=== PATIENT | male | born 1965 | race Caucasian/White ===

== ENCOUNTER 2018-06-10 18:12 | Inpatient (IN) | payer MEDICAID ==
[~2018-06-10] VITALS: Ht 157.5 cm; Wt 59.9 kg
[2018-06-10] MEDS ORDERED: GLUCAGON,HUMAN RECOMBINANT 1MG/VIAL IV ONE (20:00)
[2018-06-10] MEDS ORDERED: SODIUM CHLORIDE 0.9% 1000ML BAG (SEPSIS BOLUS) IV ONE (20:00)
[2018-06-10] MEDS ORDERED: DEXT 5%/0.9% NACL 1,000 ML IV ONE (20:30)
[2018-06-10 20:40] LABS: BASOPHILS % 0.5 % (0.0-2.0); EOSINOPHILS % 1.1 % (0.0-5.0); HEMATOCRIT. 26.1 % (42.0-52.0); HEMOGLOBIN. 8.8 g/dL (14.0-18.0); LYMPHOCYTES % 19.8 % (20.0-50.0); MEAN CORPUSCULAR HEMOGLOBIN 30.1 pg (28.0-32.0); MEAN CORPUSCULAR VOLUME 89.7 fL (80.0-94.0); MEAN PLATELET VOLUME 9.5 fl (7.4-10.4); MONOCYTES % 12.7 % (2.0-8.0); NEUTROPHILS % 65.9 % (40.0-76.0); PLATELET 115 x1000/uL (130-400); RED BLOOD CELL COUNT 2.91 mill/uL (4.7-6.1); RED CELL DISTRIBUTION WIDTH 12.8 % (11.6-14.6)
[2018-06-10 20:43] LABS: CHLORIDE 108 mEq/L (98-107)
[2018-06-10 20:47] LABS: ETHANOL BLOOD < 10 mg/dL
[2018-06-10 20:52] LABS: CREATINE KINASE 55 IU/L (39-308)
[2018-06-10 21:19] LABS: PHOSPHORUS 3.9 mg/dL (2.5-4.9)
[2018-06-10] MEDS ORDERED: HYDROCODONE/ACETAMINOPHEN 5/325MG TABLET PO PRN (22:30)
[2018-06-10] MEDS ORDERED: DOCUSATE SODIUM 100MG CAPSULE PO PRN (22:30)
[2018-06-10] MEDS ORDERED: MAGNESIUM/ALUMINUM HYDROXIDE/SIMETHICONE 30ML UDC PO PRN (22:30)
[2018-06-10] MEDS ORDERED: ONDANSETRON HCL 4MG/2ML INJ IV PRN (22:30)
[2018-06-10] MEDS ORDERED: IPRATROPIUM/ALBUTEROL 0.5-3(2.5)MG/3ML NEB INH PRN (22:30)
[2018-06-10] MEDS ORDERED: ACETAMINOPHEN 325MG TABLET PO PRN (22:30)
[2018-06-10] MEDS ORDERED: DEXTROSE 50% WATER 50ML SYRINGE IV PRN (22:30)
[2018-06-11 00:44] LABS: HEPATITIS B SURFACE ANTIGEN NEGATIVE
[2018-06-11 01:14] LABS: HEPATITIS A AB IGM NEGATIVE (NEGATIVE)
[2018-06-11 04:15] VITALS: BP 159/84
[2018-06-11] MEDS ORDERED: DEXTROSE 50% WATER 50ML SYRINGE IV PRN (04:45)
[2018-06-11] MEDS ORDERED: GLIP5TAB12 PO (05:06)
[2018-06-11] MEDS ORDERED: AMLO-79 PO (05:06)
[2018-06-11 06:00] VITALS: BP 159/85
[2018-06-11] MEDS: INSULIN LISPRO 100 UNITS/ML SUBCUT SCH ×4 (06:32→20:32)
[2018-06-11] MEDS: BLOOD SUGAR DIAGNOSTIC STRIP TEST SCH ×4 (06:32→20:32)
[2018-06-11 07:00] LABS: BASOPHILS % 0.6 % (0.0-2.0); HEMATOCRIT. 22.2 % (42.0-52.0); HEMOGLOBIN. 7.5 g/dL (14.0-18.0); LYMPHOCYTES % 18.9 % (20.0-50.0); MEAN CORPUSCULAR HEMOGLOBIN 30.3 pg (28.0-32.0); MEAN CORPUSCULAR VOLUME 89.3 fL (80.0-94.0); MEAN PLATELET VOLUME 9.2 fl (7.4-10.4); MONOCYTES % 12.6 % (2.0-8.0); NEUTROPHILS % 65.9 % (40.0-76.0); PLATELET 119 x1000/uL (130-400); RED BLOOD CELL COUNT 2.48 mill/uL (4.7-6.1); RED CELL DISTRIBUTION WIDTH 12.6 % (11.6-14.6)
[2018-06-11 07:06] LABS: CREATINE KINASE MB FRACTION 1.9 ng/mL (0.5-3.6)
[2018-06-11] MEDS: SODIUM CHLORIDE 0.9% 1,000 ML IV SCH ×2 (07:48→19:08)
[2018-06-11 08:00] VITALS: BP 156/74
[2018-06-11] MEDS ORDERED: PNEUMOCOCCAL 23-VAL P-SAC VAC 0.5 ML IM ONE (08:00)
[2018-06-11 12:00] VITALS: BP 155/83
[2018-06-11] MEDS: AMLODIPINE 2.5MG TABLET PO SCH (13:15)
[2018-06-11] MEDS: PANTOPRAZOLE SODIUM 40 MG/VIAL IV SCH (13:15)
[2018-06-11] MEDS: THIAMINE HCL 100MG TABLET PO SCH (13:45)
[2018-06-11 16:33] LABS: INR 1.1; PROTHROMBIN TIME 11.3 sec (9.1-11.1)
[2018-06-11 16:42] LABS: TOTAL IRON BINDING CAPACITY 163 ug/dL (250-450)
[2018-06-11 16:44] LABS: CREATINE KINASE 49 IU/L (39-308)
[2018-06-11 16:45] LABS: CREATINE KINASE MB FRACTION 1.8 ng/mL (0.5-3.6)
[2018-06-11 16:59] LABS: FOLIC ACID (FOLATE) SERUM 9.9 ng/mL (>5.38)
[2018-06-11 17:08] VITALS: BP_SYST 132; BP_SYST 140; BP_SYST 179; BP_DIAS 85; BP_DIAS 88; BP_DIAS 97
[2018-06-11 20:00] VITALS: BP 177/96
[2018-06-11] MEDS: CLONIDINE 0.1MG TABLET PO PRN (21:22)
[2018-06-12] VITALS (7 sets, daily range): BP systolic 139–170; BP diastolic 74–86
[2018-06-12] MEDS: BLOOD SUGAR DIAGNOSTIC STRIP TEST SCH ×4 (07:10→21:26)
[2018-06-12] MEDS: SODIUM CHLORIDE 0.9% 1,000 ML IV SCH (07:40)
[2018-06-12] MEDS: INSULIN LISPRO 100 UNITS/ML SUBCUT SCH ×4 (07:40→21:50)
[2018-06-12 08:18] LABS: BASOPHILS % 0.7 % (0.0-2.0); EOSINOPHILS % 2.4 % (0.0-5.0); LYMPHOCYTES % 22.3 % (20.0-50.0); MEAN CORPUSCULAR VOLUME 90.4 fL (80.0-94.0); MEAN PLATELET VOLUME 8.9 fl (7.4-10.4); MONOCYTES % 10.1 % (2.0-8.0); NEUTROPHILS % 64.5 % (40.0-76.0); PLATELET 161 x1000/uL (130-400); RED CELL DISTRIBUTION WIDTH 12.9 % (11.6-14.6)
[2018-06-12 08:27] LABS: HIV SCREEN 4G Non Reactive (Non Reactive)
[2018-06-12 08:41] LABS: HEMOGLOBIN. 6.6 g/dL (14.0-18.0)
[2018-06-12 08:42] LABS: HEMATOCRIT. 19.9 % (42.0-52.0)
[2018-06-12] MEDS: AMLODIPINE 2.5MG TABLET PO SCH (09:05)
[2018-06-12] MEDS: PANTOPRAZOLE SODIUM 40 MG/VIAL IV SCH (09:05)
[2018-06-12] MEDS: THIAMINE HCL 100MG TABLET PO SCH (09:05)
[2018-06-12] MEDS: CLONIDINE 0.1MG TABLET PO PRN (13:09)
[2018-06-12] MEDS ORDERED: SORBITOL 70% SOLN 30ML PO SCH ×2 (18:00→22:00)
[2018-06-12 18:17] LABS: HEMATOCRIT 25.2 % (42.0-52.0); HEMOGLOBIN 8.4 g/dL (14.0-18.0)
[2018-06-13] VITALS (8 sets, daily range): BP systolic 155–190; BP diastolic 77–95
[2018-06-13] MEDS ORDERED: SORBITOL 70% SOLN 30ML PO SCH (01:30)
[2018-06-13] MEDS: INSULIN LISPRO 100 UNITS/ML SUBCUT SCH ×4 (06:23→21:15)
[2018-06-13] MEDS: BLOOD SUGAR DIAGNOSTIC STRIP TEST SCH ×4 (06:23→20:51)
[2018-06-13 07:05] LABS: BASOPHILS % 0.5 % (0.0-2.0); EOSINOPHILS % 2.6 % (0.0-5.0); HEMATOCRIT. 28.7 % (42.0-52.0); HEMOGLOBIN. 9.7 g/dL (14.0-18.0); LYMPHOCYTES % 14.9 % (20.0-50.0); MEAN CORPUSCULAR HEMOGLOBIN 30.2 pg (28.0-32.0); MEAN CORPUSCULAR VOLUME 89.1 fL (80.0-94.0); MEAN PLATELET VOLUME 8.3 fl (7.4-10.4); MONOCYTES % 8.6 % (2.0-8.0); NEUTROPHILS % 73.4 % (40.0-76.0); PLATELET 264 x1000/uL (130-400); RED BLOOD CELL COUNT 3.23 mill/uL (4.7-6.1); RED CELL DISTRIBUTION WIDTH 13.2 % (11.6-14.6)
[2018-06-13 07:07] LABS: INR 1.1; PARTIAL THROMBOPLASTIN TIME 27.1 sec (23.4-31.0); PROTHROMBIN TIME 10.7 sec (9.1-11.1)
[2018-06-13] MEDS: CLONIDINE 0.1MG TABLET PO PRN ×2 (08:28→15:42)
[2018-06-13] MEDS: AMLODIPINE 2.5MG TABLET PO SCH (08:28)
[2018-06-13] MEDS: PANTOPRAZOLE SODIUM 40 MG/VIAL IV SCH (08:28)
[2018-06-13] MEDS: THIAMINE HCL 100MG TABLET PO SCH (09:00)
[2018-06-13] MEDS ORDERED: PROPOFOL 200MG/20ML VIAL IV ONE (13:39)
[2018-06-13] MEDS ORDERED: LIDOCAINE HCL/PF 1% 10 MG/ML 5ML VIAL ONE (13:39)
[2018-06-13] MEDS ORDERED: MIDAZOLAM HCL 2 MG/2 ML VIAL ONE (13:48)
[2018-06-13] MEDS ORDERED: SIMETHICONE 40 MG/0.6 ML 30ML ONE (13:53)
[2018-06-13] MEDS: SODIUM CHLORIDE 0.9% 1,000 ML IV SCH (21:30)
[2018-06-13] MEDS: HYDRALAZINE 20MG/ML VIAL IV PRN (21:50)
[2018-06-14 00:10] VITALS: BP 160/87
[2018-06-14 04:00] VITALS: BP 165/74
[2018-06-14 04:12] LABS: OVA & PARASITE EXAM Final report (.)
[2018-06-14 06:18] VITALS: BP 145/94
[2018-06-14] MEDS: BLOOD SUGAR DIAGNOSTIC STRIP TEST SCH ×4 (06:19→21:04)
[2018-06-14] MEDS: INSULIN LISPRO 100 UNITS/ML SUBCUT SCH ×4 (06:19→21:00)
[2018-06-14] MEDS: OMEPRAZOLE 20MG CAPSULE EXTENDED RELEASE PO SCH (06:20)
[2018-06-14 06:54] LABS: BASOPHILS % 0.7 % (0.0-2.0); EOSINOPHILS % 3.4 % (0.0-5.0); HEMATOCRIT. 25.9 % (42.0-52.0); HEMOGLOBIN. 8.6 g/dL (14.0-18.0); LYMPHOCYTES % 15.2 % (20.0-50.0); MEAN CORPUSCULAR HEMOGLOBIN 29.5 pg (28.0-32.0); MEAN CORPUSCULAR VOLUME 89.1 fL (80.0-94.0); MEAN PLATELET VOLUME 8.4 fl (7.4-10.4); MONOCYTES % 8.2 % (2.0-8.0); NEUTROPHILS % 72.5 % (40.0-76.0); PLATELET 267 x1000/uL (130-400); RED BLOOD CELL COUNT 2.91 mill/uL (4.7-6.1); RED CELL DISTRIBUTION WIDTH 13.2 % (11.6-14.6)
[2018-06-14 07:59] VITALS: BP 169/75
[2018-06-14] MEDS ORDERED: MAGNESIUM 1 G PREMIX 100 ML IV NR (10:00)
[2018-06-14 10:20] LABS: BG BASE EXCESS -7.2 mmol/L (-2.0-2.0); BG CARBOXYHEMOGLOBIN 0.3 % (0.5-1.5); BG DEOXYHEMOGLOBIN 4.7 % (0.0-5.0); BG FRACTION INSPIRED OXYGEN 21; BG HCO3 ACT 16.4 mmol/L (22.0-26.0); BG METHEMOGLOBIN 0.4 % (0.0-1.5); BG OXYGEN SATURATION 95.3 % (92.0-98.5); BG OXYHEMOGLOBIN 94.6 % (94.0-97.0); BG PCO2 26.8 mmHg (35.0-45.0); BG PH 7.405 (7.350-7.450); BG SAMPLE SITE LEFT BRACHIAL; BG TOTAL HEMOGLOBIN 9.1 g/dL (12.0-18.0); BG VENT MODE ROOM AIR
[2018-06-14] MEDS: THIAMINE HCL 100MG TABLET PO SCH (10:51)
[2018-06-14] MEDS: HYDRALAZINE 20MG/ML VIAL IV PRN (10:52)
[2018-06-14] MEDS: CLONIDINE 0.1MG TABLET PO PRN (10:53)
[2018-06-14 12:00] VITALS: BP 145/79
[2018-06-14] MEDS ORDERED: MAGNESIUM 2 G PREMIX 50 ML IV NR (12:00)
[2018-06-14] MEDS: FERROUS SULFATE 325MG TABLET PO SCH ×2 (12:24→17:11)
[2018-06-14 16:00] VITALS: BP 139/81
[2018-06-14 18:52] LABS: CLARITY URINE CLEAR (CLEAR); COLOR URINE YELLOW (YELLOW); KETONES URINE NEGATIVE (NEGATIVE); LEUKOCYTE ESTERASE URINE NEGATIVE (NEGATIVE); NITRITE URINE NEGATIVE (NEGATIVE); OCCULT BLOOD URINE NEGATIVE (NEGATIVE); PROTEIN URINE 3+ (NEGATIVE); UROBILINOGEN URINE 0.2 E.U./dL (0.2-1.0)
[2018-06-14] MEDS ORDERED: EPOETIN ALFA 10000UNITS/ML VIAL SUBCUT NR (21:00)
[2018-06-14] MEDS: SODIUM CHLORIDE 0.9% 1,000 ML IV SCH ×2 (21:00→21:02)
[2018-06-14] MEDS: HYDRALAZINE HCL 25MG TABLET PO SCH (21:43)
[2018-06-14] MEDS: NIFEDIPINE XL 30MG TAB PO SCH (21:44)
[2018-06-15] MEDS: BLOOD SUGAR DIAGNOSTIC STRIP TEST SCH ×4 (07:10→20:18)
[2018-06-15] MEDS: INSULIN LISPRO 100 UNITS/ML SUBCUT SCH ×4 (07:40→20:18)
[2018-06-15 07:48] LABS: BASOPHILS % 0.5 % (0.0-2.0); HEMATOCRIT. 24.5 % (42.0-52.0); HEMOGLOBIN. 8.1 g/dL (14.0-18.0); LYMPHOCYTES % 16.5 % (20.0-50.0); MEAN CORPUSCULAR HEMOGLOBIN 29.4 pg (28.0-32.0); MEAN CORPUSCULAR VOLUME 89.4 fL (80.0-94.0); MONOCYTES % 8.5 % (2.0-8.0); NEUTROPHILS % 71.5 % (40.0-76.0); PLATELET 309 x1000/uL (130-400); RED BLOOD CELL COUNT 2.74 mill/uL (4.7-6.1); RED CELL DISTRIBUTION WIDTH 13.4 % (11.6-14.6)
[2018-06-15 07:54] LABS: PHOSPHORUS 4.3 mg/dL (2.5-4.9)
[2018-06-15 08:00] VITALS: BP 174/86
[2018-06-15] MEDS: OMEPRAZOLE 20MG CAPSULE EXTENDED RELEASE PO SCH (09:49)
[2018-06-15] MEDS: HYDRALAZINE HCL 25MG TABLET PO SCH (09:49)
[2018-06-15] MEDS: THIAMINE HCL 100MG TABLET PO SCH (09:50)
[2018-06-15] MEDS: NIFEDIPINE XL 30MG TAB PO SCH ×2 (09:50→20:19)
[2018-06-15] MEDS: FERROUS SULFATE 325MG TABLET PO SCH ×3 (09:50→18:19)
[2018-06-15] MEDS: SODIUM CHLORIDE 0.9% 1,000 ML IV SCH (09:51)
[2018-06-15 12:00] VITALS: BP 131/71
[2018-06-15] MEDS: AZITHROMYCIN 500 MG in DEXT 5% WATER 250 ML IV SCH (13:59)
[2018-06-15] MEDS: LACTULOSE 20G/30ML UDC PO SCH ×2 (14:01→21:12)
[2018-06-15 16:00] VITALS: BP 114/62
[2018-06-15] MEDS: CEFTRIAXONE 1,000 MG in DEXTROSE 5% WATER 50 ML IV SCH (18:20)
[2018-06-15 20:00] VITALS: BP 141/82
[2018-06-15] MEDS: CARVEDILOL 6.25 MG TABLET PO SCH (20:19)
[2018-06-16] VITALS: BP 120/80
[2018-06-16 04:00] VITALS: BP 140/91
[2018-06-16] MEDS: BLOOD SUGAR DIAGNOSTIC STRIP TEST SCH ×4 (06:14→21:16)
[2018-06-16] MEDS: LACTULOSE 20G/30ML UDC PO SCH ×2 (06:17→13:01)
[2018-06-16] MEDS: INSULIN LISPRO 100 UNITS/ML SUBCUT SCH ×4 (06:17→21:00)
[2018-06-16] MEDS: OMEPRAZOLE 20MG CAPSULE EXTENDED RELEASE PO SCH (06:17)
[2018-06-16 07:16] LABS: BASOPHILS % 0.6 % (0.0-2.0); EOSINOPHILS % 2.8 % (0.0-5.0); HEMATOCRIT. 26.1 % (42.0-52.0); HEMOGLOBIN. 8.7 g/dL (14.0-18.0); LYMPHOCYTES % 16.7 % (20.0-50.0); MEAN CORPUSCULAR HEMOGLOBIN 29.8 pg (28.0-32.0); MEAN CORPUSCULAR VOLUME 89.5 fL (80.0-94.0); MEAN PLATELET VOLUME 7.4 fl (7.4-10.4); MONOCYTES % 7.7 % (2.0-8.0); NEUTROPHILS % 72.2 % (40.0-76.0); PLATELET 379 x1000/uL (130-400); RED BLOOD CELL COUNT 2.91 mill/uL (4.7-6.1); RED CELL DISTRIBUTION WIDTH 13.7 % (11.6-14.6)
[2018-06-16 07:52] LABS: PHOSPHORUS 4.4 mg/dL (2.5-4.9)
[2018-06-16 08:10] VITALS: BP 175/91
[2018-06-16] MEDS: THIAMINE HCL 100MG TABLET PO SCH (08:11)
[2018-06-16] MEDS: FERROUS SULFATE 325MG TABLET PO SCH ×3 (08:11→17:37)
[2018-06-16] MEDS: NIFEDIPINE XL 30MG TAB PO SCH ×2 (08:11→21:21)
[2018-06-16] MEDS: CARVEDILOL 6.25 MG TABLET PO SCH ×2 (08:12→21:37)
[2018-06-16 12:00] VITALS: BP 107/54
[2018-06-16] MEDS: AZITHROMYCIN 500 MG in DEXT 5% WATER 250 ML IV SCH (12:01)
[2018-06-16] MEDS: CEFTRIAXONE 1,000 MG in DEXTROSE 5% WATER 50 ML IV SCH (13:01)
[2018-06-16 16:00] VITALS: BP 127/57
[2018-06-16] MEDS ORDERED: MAGNESIUM 2 G PREMIX 50 ML IV NR (16:00)
[2018-06-16 20:00] VITALS: BP 144/68
[2018-06-17] VITALS: BP 140/60
[2018-06-17 04:00] VITALS: BP 130/70
[2018-06-17] MEDS: INSULIN LISPRO 100 UNITS/ML SUBCUT SCH ×2 (06:19→14:35)
[2018-06-17] MEDS: BLOOD SUGAR DIAGNOSTIC STRIP TEST SCH ×2 (06:19→12:10)
[2018-06-17] MEDS: OMEPRAZOLE 20MG CAPSULE EXTENDED RELEASE PO SCH (06:19)
[2018-06-17 06:48] LABS: BASOPHILS % 0.6 % (0.0-2.0); EOSINOPHILS % 4.3 % (0.0-5.0); HEMATOCRIT. 25.2 % (42.0-52.0); HEMOGLOBIN. 8.6 g/dL (14.0-18.0); LYMPHOCYTES % 17.6 % (20.0-50.0); MEAN CORPUSCULAR HEMOGLOBIN 30.6 pg (28.0-32.0); MEAN CORPUSCULAR VOLUME 90.1 fL (80.0-94.0); MEAN PLATELET VOLUME 7.6 fl (7.4-10.4); MONOCYTES % 6.4 % (2.0-8.0); NEUTROPHILS % 71.1 % (40.0-76.0); PLATELET 351 x1000/uL (130-400); RED CELL DISTRIBUTION WIDTH 13.5 % (11.6-14.6)
[2018-06-17 07:39] LABS: PHOSPHORUS 4.7 mg/dL (2.5-4.9)
[2018-06-17 08:00] VITALS: BP 140/73
[2018-06-17] MEDS ORDERED: LACTULOSE 20G/30ML UDC PO SCH (09:00)
[2018-06-17] MEDS: NIFEDIPINE XL 30MG TAB PO SCH (09:34)
[2018-06-17] MEDS: CARVEDILOL 6.25 MG TABLET PO SCH (09:34)
[2018-06-17] MEDS: THIAMINE HCL 100MG TABLET PO SCH (09:34)
[2018-06-17] MEDS: FERROUS SULFATE 325MG TABLET PO SCH ×2 (09:34→14:34)
[2018-06-17] MEDS ORDERED: THIA100T72 PO (10:59)
[2018-06-17] MEDS ORDERED: NIFE30TA83 PO (10:59)
[2018-06-17] MEDS ORDERED: FERR325T23 PO (10:59)
[2018-06-17] MEDS ORDERED: COR6 PO (10:59)
[2018-06-17] MEDS ORDERED: LACT10SO7 PO (10:59)
[2018-06-17] MEDS ORDERED: OMEP20CA10 PO (10:59)
[2018-06-17 12:00] VITALS: BP 136/70
[2018-06-17 13:06] LABS: SACCHAROMYCES CEREVISIAE IGG 39.7 Units (0.0-24.9)
[2018-06-17] MEDS: CEFTRIAXONE 1,000 MG in DEXTROSE 5% WATER 50 ML IV SCH (14:34)
[2018-06-17 15:08] LABS: ATYPICAL pANCA <1:20 titer (Neg:<1:20)
[2018-06-17 15:25] VITALS: BP 136/70
[2018-06-18 10:08] LABS: SACCHAROMYCES CEREVISIAE IGM 21.4 Units (0.0-24.9)
== END 2018-06-17 16:50 | disposition home or self-care (01) | DRG 52 ==
LOC: ER 18:31 → 8WST 21:53 → EDBEDREQ 21:56 → EDBEDREQTM 21:56 → ENRESERV 06-11 02:28
PROVIDERS: ADMIT Internal Medicine; ATTEND Internal Medicine
PROC: 30233N1 Transfusion of Nonautologous Red Blood Cells into Peripheral Vein, Percutaneous Approach (ICD-10-PCS; 2018-06-12)
PROC: 0DB68ZX Excision of Stomach, Via Natural or Artificial Opening Endoscopic, Diagnostic (ICD-10-PCS; principal; 2018-06-13)
PROC: 0DB88ZX Excision of Small Intestine, Via Natural or Artificial Opening Endoscopic, Diagnostic (ICD-10-PCS; 2018-06-13)
PROC: 0DBK8ZX Excision of Ascending Colon, Via Natural or Artificial Opening Endoscopic, Diagnostic (ICD-10-PCS; 2018-06-13)
PROC: 0DBN8ZX Excision of Sigmoid Colon, Via Natural or Artificial Opening Endoscopic, Diagnostic (ICD-10-PCS; 2018-06-13)
PROC: 0JBR0ZZ Excision of Left Foot Subcutaneous Tissue and Fascia, Open Approach (ICD-10-PCS; 2018-06-13)
DX: G93.41 Metabolic encephalopathy (principal); E43 Unspecified severe protein-calorie malnutrition; J18.9 Pneumonia, unspecified organism; D69.6 Thrombocytopenia, unspecified; E11.22 Type 2 diabetes mellitus with diabetic chronic kidney disease; N17.9 Acute kidney failure, unspecified; E11.621 Type 2 diabetes mellitus with foot ulcer; I12.0 Hypertensive chronic kidney disease with stage 5 chronic kidney disease or end stage renal disease; N18.6 End stage renal disease; E11.51 Type 2 diabetes mellitus with diabetic peripheral angiopathy without gangrene; E11.649 Type 2 diabetes mellitus with hypoglycemia without coma; L97.528 Non-pressure chronic ulcer of other part of left foot with other specified severity; E87.2 Acidosis; E83.42 Hypomagnesemia; K29.70 Gastritis, unspecified, without bleeding; K92.1 Melena; K52.9 Noninfective gastroenteritis and colitis, unspecified; D50.9 Iron deficiency anemia, unspecified; S90.422A Blister (nonthermal), left great toe, initial encounter; X58.XXXA Exposure to other specified factors, initial encounter; I12.9 Hypertensive chronic kidney disease with stage 1 through stage 4 chronic kidney disease, or unspecified chronic kidney disease; F10.20 Alcohol dependence, uncomplicated; I31.3 Pericardial effusion (noninflammatory); K57.30 Diverticulosis of large intestine without perforation or abscess without bleeding; N28.1 Cyst of kidney, acquired; Z82.49 Family history of ischemic heart disease and other diseases of the circulatory system; Z86.73 Personal history of transient ischemic attack (TIA), and cerebral infarction without residual deficits; Y93.89 Activity, other specified; Y92.89 Other specified places as the place of occurrence of the external cause; Y99.8 Other external cause status; Z68.24 Body mass index [BMI] 24.0-24.9, adult; E83.51 Hypocalcemia
CPT/HCPCS: 36415; 36600; 70551; 71045; 76700; 76770; 80048; 80061; 80320; 82140; 82270; 82375; 82533; 82550; 82553; 82607; 82728; 82746; 82805; 82962; 83036; 83540; 83550; 83605; 83735; 84100; 84134; 84443; 84484; 85014; 85018; 86256; 86671; 86705; 86709; 86803; 86850; 86900; 86920; 87015; 87045; 87177; 87209; 87340; 87389; 87427; 87449; 88305; 88313; 89055; 90471; 90732; 93005; 93306; 93880; 93970; 96374; 99285; C9113; J0360; J0456; J0696; J0885; J1610; J1815; J2250; J2704; J3475; J3490; J7030; J7042; J7050; J7060; P9016; G0480

== ENCOUNTER 2019-04-08 21:13 | Inpatient (IN) | payer MEDICAID ==
[~2019-04-08] VITALS: Ht 157.5 cm; Wt 53.1 kg
[~2019-04-08 21:13] MED LIST: COR6 PO; FERR325T23 PO; GLIP5TAB12 PO; LACT10SO7 PO; NIFE-33 PO; OMEP20CA14 PO; THIA100T72 PO
[2019-04-08 23:53] LABS: BASOPHILS % 0.9 % (0.0-2.0); HEMATOCRIT. 21.5 % (42.0-52.0); HEMOGLOBIN. 7.3 g/dL (14.0-18.0); LYMPHOCYTES % 30.4 % (20.0-50.0); MEAN CORPUSCULAR HEMOGLOBIN 29.2 pg (28.0-32.0); MEAN CORPUSCULAR VOLUME 85.5 fL (80.0-94.0); MEAN PLATELET VOLUME 7.1 fl (7.4-10.4); MONOCYTES % 10.4 % (2.0-8.0); NEUTROPHILS % 56.3 % (40.0-76.0); PLATELET 301 x1000/uL (130-400); RED BLOOD CELL COUNT 2.52 mill/uL (4.7-6.1); RED CELL DISTRIBUTION WIDTH 17.3 % (11.6-14.6)
[2019-04-09] LABS: CHLORIDE 100 mEq/L (98-107)
[2019-04-09 00:02] LABS: PROTHROMBIN TIME 10.8 sec (9.6-11.0)
[2019-04-09] MEDS ORDERED: PANTOPRAZOLE SODIUM 40 MG/VIAL IV ONE (00:45)
[2019-04-09] MEDS ORDERED: ACETAMINOPHEN 325MG TABLET PO PRN (08:30)
[2019-04-09] MEDS ORDERED: ONDANSETRON HCL 4MG/2ML INJ IV PRN (08:30)
[2019-04-09] MEDS ORDERED: DEXTROSE 50% WATER 50ML SYRINGE IV PRN (08:30)
[2019-04-09] MEDS: CLONIDINE 0.1MG TABLET PO PRN (09:02)
[2019-04-09 09:30] VITALS: BP 240/86
[2019-04-09] MEDS: INSULIN LISPRO 100 UNITS/ML SUBCUT SCH ×4 (10:00→21:00)
[2019-04-09] MEDS: BLOOD SUGAR DIAGNOSTIC STRIP TEST SCH ×4 (10:54→21:07)
[2019-04-09] MEDS: PANTOPRAZOLE SODIUM 40 MG/VIAL IV SCH ×2 (10:54→18:15)
[2019-04-09] MEDS: NIFEDIPINE XL 60MG TAB PO SCH ×2 (10:57→21:43)
[2019-04-09 12:00] VITALS: BP 190/78
[2019-04-09 16:00] VITALS: BP 171/85
[2019-04-09 17:09] LABS: HEMATOCRIT 21.1 % (42.0-52.0); HEMOGLOBIN 7.1 g/dL (14.0-18.0)
[2019-04-09] MEDS: IRON SUCROSE COMPLEX 100 MG/5 ML ML IV SCH (18:21)
[2019-04-09 20:00] VITALS: BP 112/73
[2019-04-09] MEDS: HYDRALAZINE HCL 50MG TABLET PO SCH (21:43)
[2019-04-09] MEDS: FUROSEMIDE 20MG TABLET PO SCH (21:43)
[2019-04-09] MEDS: BENAZEPRIL 10MG TABLET PO SCH (21:44)
[2019-04-09] MEDS ORDERED: PNEUMOCOCCAL 23-VAL P-SAC VAC 0.5 ML IM ONE (22:15)
[2019-04-09] MEDS ORDERED: SORBITOL 70% SOLN 30ML PO NR (22:30)
[2019-04-10] VITALS: BP 113/68
[2019-04-10 04:00] VITALS: BP 122/70
[2019-04-10 07:04] LABS: BASOPHILS % 1.1 % (0.0-2.0); EOSINOPHILS % 1.4 % (0.0-5.0); HEMATOCRIT. 23.7 % (42.0-52.0); HEMOGLOBIN. 7.9 g/dL (14.0-18.0); LYMPHOCYTES % 20.8 % (20.0-50.0); MEAN CORPUSCULAR HEMOGLOBIN 28.6 pg (28.0-32.0); MEAN CORPUSCULAR VOLUME 85.6 fL (80.0-94.0); MEAN PLATELET VOLUME 7.3 fl (7.4-10.4); MONOCYTES % 8.3 % (2.0-8.0); NEUTROPHILS % 68.4 % (40.0-76.0); PLATELET 411 x1000/uL (130-400); RED BLOOD CELL COUNT 2.77 mill/uL (4.7-6.1); RED CELL DISTRIBUTION WIDTH 17.4 % (11.6-14.6)
[2019-04-10] MEDS: BLOOD SUGAR DIAGNOSTIC STRIP TEST SCH ×4 (07:16→21:00)
[2019-04-10] MEDS: INSULIN LISPRO 100 UNITS/ML SUBCUT SCH ×4 (07:17→21:00)
[2019-04-10] MEDS ORDERED: TUBERCULIN,PURIF.PROT.DERIV. 5 TU/0.1 ML SYR ID ONE ×2 (08:00→09:30)
[2019-04-10 08:10] VITALS: BP 128/76
[2019-04-10 08:34] LABS: HEPATITIS B SURFACE ANTIGEN NEGATIVE
[2019-04-10 09:04] LABS: HEPATITIS A AB IGM NEGATIVE (NEGATIVE)
[2019-04-10] MEDS: HYDRALAZINE HCL 50MG TABLET PO SCH ×2 (09:31→21:00)
[2019-04-10] MEDS: NIFEDIPINE XL 60MG TAB PO SCH ×2 (09:32→21:00)
[2019-04-10] MEDS: FOLIC ACID/VITAMIN B COMP W-C TABLET PO SCH (09:32)
[2019-04-10] MEDS: BENAZEPRIL 10MG TABLET PO SCH ×2 (09:32→21:00)
[2019-04-10] MEDS: PANTOPRAZOLE SODIUM 40 MG/VIAL IV SCH ×2 (09:33→18:18)
[2019-04-10] MEDS: FUROSEMIDE 20MG TABLET PO SCH ×2 (09:36→21:00)
[2019-04-10 11:40] VITALS: BP 134/77
[2019-04-10 15:33] VITALS: BP 110/68
[2019-04-10] MEDS: IRON SUCROSE COMPLEX 100 MG/5 ML ML IV SCH (18:18)
[2019-04-10 20:00] VITALS: BP 109/65
[2019-04-10] MEDS ORDERED: IRON SUCROSE COMPLEX 100 MG/5 ML ML IV NR (22:00)
[2019-04-10] MEDS ORDERED: EPOETIN ALFA 4000UNITS/ML VIAL SUBCUT NR ×2 (22:00)
[2019-04-11] VITALS: BP 106/64
[2019-04-11 04:00] VITALS: BP 109/82
[2019-04-11 07:37] LABS: BASOPHILS % 0.8 % (0.0-2.0); EOSINOPHILS % 0.4 % (0.0-5.0); HEMATOCRIT. 23.1 % (42.0-52.0); HEMOGLOBIN. 7.9 g/dL (14.0-18.0); MEAN CORPUSCULAR HEMOGLOBIN 29.1 pg (28.0-32.0); MEAN CORPUSCULAR VOLUME 85.3 fL (80.0-94.0); MEAN PLATELET VOLUME 7.7 fl (7.4-10.4); MONOCYTES % 4.5 % (2.0-8.0); NEUTROPHILS % 79.3 % (40.0-76.0); PLATELET 353 x1000/uL (130-400); RED BLOOD CELL COUNT 2.71 mill/uL (4.7-6.1); RED CELL DISTRIBUTION WIDTH 16.9 % (11.6-14.6)
[2019-04-11] MEDS: INSULIN LISPRO 100 UNITS/ML SUBCUT SCH ×4 (07:49→21:00)
[2019-04-11] MEDS: BLOOD SUGAR DIAGNOSTIC STRIP TEST SCH ×4 (07:49→21:54)
[2019-04-11 07:59] VITALS: BP 122/72
[2019-04-11 08:01] LABS: CHLORIDE 102 mEq/L (98-107)
[2019-04-11] MEDS: BENAZEPRIL 10MG TABLET PO SCH ×2 (09:00→21:52)
[2019-04-11] MEDS: HYDRALAZINE HCL 50MG TABLET PO SCH ×2 (09:00→21:53)
[2019-04-11] MEDS: FOLIC ACID/VITAMIN B COMP W-C TABLET PO SCH (09:28)
[2019-04-11] MEDS: FUROSEMIDE 20MG TABLET PO SCH ×2 (09:29→21:52)
[2019-04-11] MEDS: FERROUS SULFATE 325MG TABLET PO SCH ×3 (09:29→17:51)
[2019-04-11] MEDS: PANTOPRAZOLE SODIUM 40 MG/VIAL IV SCH ×2 (09:29→17:52)
[2019-04-11] MEDS: NIFEDIPINE XL 60MG TAB PO SCH ×2 (09:31→21:54)
[2019-04-11] MEDS ORDERED: DIATR MEGLU/DIATRIZOATE SOLN 30ML PO NR (12:00)
[2019-04-11 12:07] VITALS: BP 151/74
[2019-04-11 15:10] VITALS: BP 139/76
[2019-04-11] MEDS: IRON SUCROSE COMPLEX 100 MG/5 ML ML IV SCH (17:54)
[2019-04-11 20:00] VITALS: BP 126/72
[2019-04-12] VITALS: BP 117/69
[2019-04-12 04:00] VITALS: BP 112/69
[2019-04-12] MEDS: BLOOD SUGAR DIAGNOSTIC STRIP TEST SCH ×4 (07:08→20:53)
[2019-04-12 07:43] LABS: HEMATOCRIT 22.4 % (42.0-52.0); HEMOGLOBIN 7.4 g/dL (14.0-18.0); MEAN CORPUSCULAR HEMOGLOBIN 28.6 pg (28.0-32.0); MEAN CORPUSCULAR VOLUME 86.2 fL (80.0-94.0); PLATELET 272 x1000/uL (130-400); RED CELL DISTRIBUTION WIDTH 17.3 % (11.6-14.6)
[2019-04-12] MEDS: INSULIN LISPRO 100 UNITS/ML SUBCUT SCH ×4 (07:50→21:00)
[2019-04-12 08:00] VITALS: BP 109/65
[2019-04-12] MEDS ORDERED: POTASSIUM CHLORIDE 20MEQ TABLET SR PO NR (08:00)
[2019-04-12] MEDS: FERROUS SULFATE 325MG TABLET PO SCH ×3 (08:40→17:35)
[2019-04-12 12:00] VITALS: BP 120/63
[2019-04-12] MEDS: PANTOPRAZOLE SODIUM 40 MG/VIAL IV SCH ×2 (12:27→17:35)
[2019-04-12] MEDS: FOLIC ACID/VITAMIN B COMP W-C TABLET PO SCH (12:27)
[2019-04-12] MEDS: SODIUM CHLORIDE 0.9% 1,000 ML IV SCH (12:27)
[2019-04-12] MEDS: HYDRALAZINE HCL 50MG TABLET PO SCH ×2 (12:28→21:00)
[2019-04-12] MEDS: NIFEDIPINE XL 60MG TAB PO SCH ×2 (12:28→21:00)
[2019-04-12] MEDS: FUROSEMIDE 20MG TABLET PO SCH ×2 (12:29→21:16)
[2019-04-12] MEDS: BENAZEPRIL 10MG TABLET PO SCH ×2 (12:29→21:00)
[2019-04-12 16:00] VITALS: BP 105/63
[2019-04-12 18:19] LABS: HEMATOCRIT 23.4 % (42.0-52.0); HEMOGLOBIN 7.8 g/dL (14.0-18.0)
[2019-04-12 20:00] VITALS: BP 100/51
[2019-04-12] MEDS: METRONIDAZOLE 500 MG PREMIX 100 ML IV SCH (23:56)
[2019-04-13] VITALS: BP 101/64
[2019-04-13] MEDS ORDERED: AMIKACIN SULFATE 400 MG in SODIUM CHLORIDE 0.9% 100 ML IV NR (01:30)
[2019-04-13] MEDS ORDERED: CEFTRIAXONE 2 G in DEXTROSE 5% WATER 50 ML IV SCH (02:00)
[2019-04-13] MEDS ORDERED: HEPATITIS B VIRUS VACCINE-PF 10 MCG/0.5 VIAL IM NR (02:00)
[2019-04-13 04:00] VITALS: BP 100/58
[2019-04-13] MEDS: METRONIDAZOLE 500 MG PREMIX 100 ML IV SCH ×2 (05:51→13:13)
[2019-04-13] MEDS: INSULIN LISPRO 100 UNITS/ML SUBCUT SCH ×4 (06:20→20:26)
[2019-04-13] MEDS: BLOOD SUGAR DIAGNOSTIC STRIP TEST SCH ×4 (06:20→19:58)
[2019-04-13 08:00] VITALS: BP 93/58
[2019-04-13 08:25] LABS: EOSINOPHILS % 0.4 % (0.0-5.0); HEMATOCRIT. 22.4 % (42.0-52.0); HEMOGLOBIN. 7.5 g/dL (14.0-18.0); LYMPHOCYTES % 11.1 % (20.0-50.0); MEAN CORPUSCULAR VOLUME 86.7 fL (80.0-94.0); MEAN PLATELET VOLUME 7.7 fl (7.4-10.4); MONOCYTES % 4.4 % (2.0-8.0); NEUTROPHILS % 83.1 % (40.0-76.0); PLATELET 264 x1000/uL (130-400); RED BLOOD CELL COUNT 2.58 mill/uL (4.7-6.1)
[2019-04-13] MEDS: HYDRALAZINE HCL 50MG TABLET PO SCH ×2 (08:36→21:02)
[2019-04-13] MEDS: BENAZEPRIL 10MG TABLET PO SCH ×2 (08:37→21:02)
[2019-04-13 08:38] LABS: CHLORIDE 107 mEq/L (98-107)
[2019-04-13] MEDS: NIFEDIPINE XL 60MG TAB PO SCH ×2 (08:38→21:02)
[2019-04-13] MEDS: FUROSEMIDE 20MG TABLET PO SCH ×2 (08:38→21:02)
[2019-04-13 08:45] LABS: PHOSPHORUS 4.2 mg/dL (2.5-4.9)
[2019-04-13] MEDS: FOLIC ACID/VITAMIN B COMP W-C TABLET PO SCH (09:42)
[2019-04-13] MEDS: FERROUS SULFATE 325MG TABLET PO SCH ×3 (09:43→17:55)
[2019-04-13] MEDS: PANTOPRAZOLE SODIUM 40 MG/VIAL IV SCH ×2 (09:43→17:54)
[2019-04-13 12:00] VITALS: BP 105/63
[2019-04-13] MEDS: SODIUM CHLORIDE 0.9% 1,000 ML IV SCH (13:13)
[2019-04-13 16:00] VITALS: BP 116/65
[2019-04-13 20:14] VITALS: BP 124/72
[2019-04-13] MEDS ORDERED: EPOETIN ALFA 4000UNITS/ML VIAL SUBCUT NR (21:00)
[2019-04-13] MEDS: MEROPENEM 500 MG in SODIUM CHLORIDE 0.9% 50 ML IV SCH (23:19)
[2019-04-14] VITALS (10 sets, daily range): BP systolic 100–137; BP diastolic 59–80
[2019-04-14 06:00] LABS: BASOPHILS % 0.8 % (0.0-2.0); EOSINOPHILS % 0.6 % (0.0-5.0); HEMATOCRIT. 21.1 % (42.0-52.0); LYMPHOCYTES % 16.2 % (20.0-50.0); MEAN CORPUSCULAR HEMOGLOBIN 28.8 pg (28.0-32.0); MEAN CORPUSCULAR VOLUME 86.6 fL (80.0-94.0); MEAN PLATELET VOLUME 7.9 fl (7.4-10.4); MONOCYTES % 7.2 % (2.0-8.0); NEUTROPHILS % 75.2 % (40.0-76.0); PLATELET 300 x1000/uL (130-400); RED BLOOD CELL COUNT 2.44 mill/uL (4.7-6.1); RED CELL DISTRIBUTION WIDTH 17.2 % (11.6-14.6)
[2019-04-14 06:13] LABS: CHLORIDE 108 mEq/L (98-107)
[2019-04-14] MEDS: INSULIN LISPRO 100 UNITS/ML SUBCUT SCH ×3 (06:30→17:50)
[2019-04-14] MEDS: BLOOD SUGAR DIAGNOSTIC STRIP TEST SCH ×3 (06:30→17:20)
[2019-04-14] MEDS: FUROSEMIDE 20MG TABLET PO SCH ×2 (08:53→21:00)
[2019-04-14] MEDS: HYDRALAZINE HCL 50MG TABLET PO SCH ×2 (08:53→21:00)
[2019-04-14] MEDS: BENAZEPRIL 10MG TABLET PO SCH ×2 (08:54→21:00)
[2019-04-14] MEDS: NIFEDIPINE XL 60MG TAB PO SCH ×2 (08:54→21:00)
[2019-04-14] MEDS ORDERED: LIDOCAINE HCL 1% 20ML VIAL (Pyxis) INJ ONE (09:30)
[2019-04-14] MEDS ORDERED: SODIUM BICARBONATE 4% (2.4MEQ) 5ML VIAL IV ONE (09:30)
[2019-04-14] MEDS: FOLIC ACID/VITAMIN B COMP W-C TABLET PO SCH (10:43)
[2019-04-14] MEDS: MEROPENEM 500 MG in SODIUM CHLORIDE 0.9% 50 ML IV SCH (10:43)
[2019-04-14] MEDS: PANTOPRAZOLE SODIUM 40 MG/VIAL IV SCH ×2 (10:43→18:22)
[2019-04-14] MEDS: FERROUS SULFATE 325MG TABLET PO SCH ×3 (10:43→18:22)
[2019-04-14] MEDS ORDERED: DIATR MEGLU/DIATRIZOATE SOLN 30ML PO SCH (12:00)
[2019-04-15] VITALS: BP 130/65
[2019-04-15] MEDS: MEROPENEM 500 MG in SODIUM CHLORIDE 0.9% 50 ML IV SCH ×3 (01:23→22:44)
[2019-04-15] MEDS: INSULIN LISPRO 100 UNITS/ML SUBCUT SCH ×5 (01:38→21:00)
[2019-04-15] MEDS: BLOOD SUGAR DIAGNOSTIC STRIP TEST SCH ×5 (01:38→21:00)
[2019-04-15 04:00] VITALS: BP 129/80
[2019-04-15 08:00] VITALS: BP 133/87
[2019-04-15] MEDS: NIFEDIPINE XL 60MG TAB PO SCH ×2 (09:00→22:52)
[2019-04-15] MEDS: FUROSEMIDE 20MG TABLET PO SCH ×2 (09:00→22:48)
[2019-04-15] MEDS: FERROUS SULFATE 325MG TABLET PO SCH ×3 (09:13→19:56)
[2019-04-15] MEDS: FOLIC ACID/VITAMIN B COMP W-C TABLET PO SCH (09:13)
[2019-04-15] MEDS: PANTOPRAZOLE SODIUM 40 MG/VIAL IV SCH ×2 (09:13→19:58)
[2019-04-15 09:15] LABS: BASOPHILS % 0.8 % (0.0-2.0); EOSINOPHILS % 1.9 % (0.0-5.0); HEMATOCRIT. 28.8 % (42.0-52.0); HEMOGLOBIN. 9.7 g/dL (14.0-18.0); LYMPHOCYTES % 23.4 % (20.0-50.0); MEAN CORPUSCULAR HEMOGLOBIN 29.5 pg (28.0-32.0); MEAN CORPUSCULAR VOLUME 87.1 fL (80.0-94.0); MEAN PLATELET VOLUME 7.1 fl (7.4-10.4); MONOCYTES % 7.3 % (2.0-8.0); NEUTROPHILS % 66.6 % (40.0-76.0); PLATELET 342 x1000/uL (130-400); RED CELL DISTRIBUTION WIDTH 16.3 % (11.6-14.6)
[2019-04-15] MEDS: HYDRALAZINE HCL 50MG TABLET PO SCH ×2 (09:18→22:47)
[2019-04-15] MEDS: BENAZEPRIL 10MG TABLET PO SCH ×2 (09:18→22:48)
[2019-04-15] MEDS ORDERED: POTASSIUM CHLORIDE 20MEQ TABLET SR PO SCH (11:30)
[2019-04-15 12:00] VITALS: BP 175/95
[2019-04-15] MEDS ORDERED: VANCOMYCIN 1 G PREMIX 200 ML IV NR (13:00)
[2019-04-15] MEDS: CLONIDINE 0.1MG TABLET PO PRN (15:31)
[2019-04-15 16:00] VITALS: BP 136/7
[2019-04-15 20:53] VITALS: BP 140/89
[2019-04-15] MEDS ORDERED: EPOETIN ALFA 4000UNITS/ML VIAL SUBCUT SCH ×2 (21:00)
[2019-04-16] VITALS (7 sets, daily range): BP systolic 136–177; BP diastolic 70–93
[2019-04-16] MEDS ORDERED: VANCOMYCIN 750 MG PREMIX 150 ML IV SCH (01:00)
[2019-04-16 06:42] LABS: BASOPHILS % 0.8 % (0.0-2.0); EOSINOPHILS % 2.8 % (0.0-5.0); HEMATOCRIT. 26.8 % (42.0-52.0); HEMOGLOBIN. 9.2 g/dL (14.0-18.0); LYMPHOCYTES % 28.6 % (20.0-50.0); MEAN CORPUSCULAR HEMOGLOBIN 29.7 pg (28.0-32.0); MEAN PLATELET VOLUME 7.3 fl (7.4-10.4); MONOCYTES % 8.2 % (2.0-8.0); NEUTROPHILS % 59.6 % (40.0-76.0); PLATELET 303 x1000/uL (130-400); RED BLOOD CELL COUNT 3.08 mill/uL (4.7-6.1); RED CELL DISTRIBUTION WIDTH 16.6 % (11.6-14.6)
[2019-04-16] MEDS: BLOOD SUGAR DIAGNOSTIC STRIP TEST SCH ×4 (06:49→21:00)
[2019-04-16] MEDS: INSULIN LISPRO 100 UNITS/ML SUBCUT SCH ×4 (07:50→21:00)
[2019-04-16] MEDS: BENAZEPRIL 10MG TABLET PO SCH ×2 (09:00→21:00)
[2019-04-16] MEDS: HYDRALAZINE HCL 50MG TABLET PO SCH ×2 (09:00→21:00)
[2019-04-16] MEDS: NIFEDIPINE XL 60MG TAB PO SCH ×2 (09:00→21:00)
[2019-04-16] MEDS: FUROSEMIDE 20MG TABLET PO SCH ×2 (09:00→22:53)
[2019-04-16] MEDS: FERROUS SULFATE 325MG TABLET PO SCH ×3 (10:49→18:52)
[2019-04-16] MEDS: PANTOPRAZOLE SODIUM 40 MG/VIAL IV SCH ×2 (10:59→18:26)
[2019-04-16] MEDS: FOLIC ACID/VITAMIN B COMP W-C TABLET PO SCH (16:18)
[2019-04-16] MEDS: MEROPENEM 500 MG in SODIUM CHLORIDE 0.9% 50 ML IV SCH ×3 (16:18→22:27)
[2019-04-16] MEDS: VANCOMYCIN 1 G PREMIX 200 ML IV NR ×2 (18:26→20:04)
[2019-04-16] MEDS ORDERED: EPOETIN ALFA 4000UNITS/ML VIAL SUBCUT SCH (21:00)
[2019-04-16] MEDS ORDERED: POTASSIUM CHLORIDE 20MEQ TABLET SR PO NR (22:45)
[2019-04-17] VITALS: BP 118/77
[2019-04-17 04:00] VITALS: BP 127/91
[2019-04-17] MEDS: BLOOD SUGAR DIAGNOSTIC STRIP TEST SCH ×5 (06:32→21:27)
[2019-04-17 07:22] LABS: BASOPHILS % 0.8 % (0.0-2.0); EOSINOPHILS % 3.3 % (0.0-5.0); HEMATOCRIT. 29.6 % (42.0-52.0); LYMPHOCYTES % 26.5 % (20.0-50.0); MEAN CORPUSCULAR HEMOGLOBIN 29.4 pg (28.0-32.0); MEAN CORPUSCULAR VOLUME 86.9 fL (80.0-94.0); MEAN PLATELET VOLUME 7.4 fl (7.4-10.4); MONOCYTES % 5.7 % (2.0-8.0); NEUTROPHILS % 63.7 % (40.0-76.0); PLATELET 316 x1000/uL (130-400); RED BLOOD CELL COUNT 3.41 mill/uL (4.7-6.1); RED CELL DISTRIBUTION WIDTH 16.3 % (11.6-14.6)
[2019-04-17] MEDS: INSULIN LISPRO 100 UNITS/ML SUBCUT SCH ×4 (07:48→21:00)
[2019-04-17 08:00] VITALS: BP 133/88
[2019-04-17] MEDS: BENAZEPRIL 10MG TABLET PO SCH ×2 (09:24→21:00)
[2019-04-17] MEDS: FOLIC ACID/VITAMIN B COMP W-C TABLET PO SCH (09:24)
[2019-04-17] MEDS: FERROUS SULFATE 325MG TABLET PO SCH ×3 (09:24→18:19)
[2019-04-17] MEDS: FUROSEMIDE 20MG TABLET PO SCH ×2 (09:25→21:26)
[2019-04-17] MEDS: NIFEDIPINE XL 60MG TAB PO SCH ×2 (09:25→21:00)
[2019-04-17] MEDS: PANTOPRAZOLE SODIUM 40 MG/VIAL IV SCH ×2 (09:25→18:19)
[2019-04-17] MEDS: HYDRALAZINE HCL 50MG TABLET PO SCH ×2 (09:25→21:00)
[2019-04-17] MEDS: MEROPENEM 500 MG in SODIUM CHLORIDE 0.9% 50 ML IV SCH ×2 (11:44→21:25)
[2019-04-17 12:00] VITALS: BP 123/66
[2019-04-17 16:00] VITALS: BP 109/59
[2019-04-17 20:00] VITALS: BP 99/58
[2019-04-18] VITALS: BP_SYST 107; BP_SYST 109; BP_DIAS 63; BP_DIAS 65
[2019-04-18 04:00] VITALS: BP 109/63
[2019-04-18] MEDS: BLOOD SUGAR DIAGNOSTIC STRIP TEST SCH ×4 (07:20→20:40)
[2019-04-18] MEDS: INSULIN LISPRO 100 UNITS/ML SUBCUT SCH ×4 (07:50→20:40)
[2019-04-18 08:20] VITALS: BP 124/73
[2019-04-18] MEDS: FERROUS SULFATE 325MG TABLET PO SCH ×3 (09:46→18:52)
[2019-04-18] MEDS: MEROPENEM 500 MG in SODIUM CHLORIDE 0.9% 50 ML IV SCH ×2 (09:47→21:39)
[2019-04-18] MEDS: PANTOPRAZOLE SODIUM 40 MG/VIAL IV SCH ×2 (09:47→18:52)
[2019-04-18] MEDS: HYDRALAZINE HCL 50MG TABLET PO SCH ×2 (09:47→21:00)
[2019-04-18] MEDS: FUROSEMIDE 20MG TABLET PO SCH ×2 (09:48→21:00)
[2019-04-18] MEDS: NIFEDIPINE XL 60MG TAB PO SCH ×2 (09:48→21:00)
[2019-04-18] MEDS: FOLIC ACID/VITAMIN B COMP W-C TABLET PO SCH (09:48)
[2019-04-18] MEDS: BENAZEPRIL 10MG TABLET PO SCH ×2 (09:50→21:00)
[2019-04-18 12:43] VITALS: BP 109/67
[2019-04-18 16:15] VITALS: BP 100/66
[2019-04-18 20:00] VITALS: BP 141/73
[2019-04-19] VITALS: BP 147/87
[2019-04-19] MEDS ORDERED: HEPARIN SODIUM 1,000 UNIT/1ML VIAL IV SCH (01:00)
[2019-04-19 04:00] VITALS: BP 103/64
[2019-04-19] MEDS: INSULIN LISPRO 100 UNITS/ML SUBCUT SCH ×4 (07:33→20:53)
[2019-04-19] MEDS: BLOOD SUGAR DIAGNOSTIC STRIP TEST SCH ×4 (07:33→20:52)
[2019-04-19] MEDS: FERROUS SULFATE 325MG TABLET PO SCH ×4 (07:50→18:18)
[2019-04-19 08:00] VITALS: BP 126/78
[2019-04-19] MEDS: PANTOPRAZOLE SODIUM 40 MG/VIAL IV SCH ×2 (08:51→18:26)
[2019-04-19] MEDS: MEROPENEM 500 MG in SODIUM CHLORIDE 0.9% 50 ML IV SCH ×2 (08:55→20:53)
[2019-04-19] MEDS: FUROSEMIDE 20MG TABLET PO SCH ×3 (09:00→20:53)
[2019-04-19] MEDS: BENAZEPRIL 10MG TABLET PO SCH ×2 (09:00→20:30)
[2019-04-19] MEDS: NIFEDIPINE XL 60MG TAB PO SCH ×3 (09:00→20:31)
[2019-04-19] MEDS: FOLIC ACID/VITAMIN B COMP W-C TABLET PO SCH ×2 (09:00→09:53)
[2019-04-19] MEDS: HYDRALAZINE HCL 50MG TABLET PO SCH ×3 (09:00→20:30)
[2019-04-19 12:00] VITALS: BP 96/56
[2019-04-19 16:00] VITALS: BP 90/56
[2019-04-19 20:30] VITALS: BP 104/71
[2019-04-20 00:05] VITALS: BP 120/79
[2019-04-20 04:00] VITALS: BP 115/72
[2019-04-20] MEDS: BLOOD SUGAR DIAGNOSTIC STRIP TEST SCH ×4 (06:21→21:47)
[2019-04-20] MEDS: FERROUS SULFATE 325MG TABLET PO SCH ×3 (07:50→17:27)
[2019-04-20] MEDS: INSULIN LISPRO 100 UNITS/ML SUBCUT SCH ×4 (07:50→21:00)
[2019-04-20 08:00] VITALS: BP 129/76
[2019-04-20 08:05] LABS: EOSINOPHILS % 4.7 % (0.0-5.0); HEMATOCRIT. 30.7 % (42.0-52.0); HEMOGLOBIN. 10.2 g/dL (14.0-18.0); LYMPHOCYTES % 29.9 % (20.0-50.0); MEAN CORPUSCULAR HEMOGLOBIN 29.4 pg (28.0-32.0); MEAN CORPUSCULAR VOLUME 88.3 fL (80.0-94.0); MEAN PLATELET VOLUME 7.4 fl (7.4-10.4); MONOCYTES % 6.7 % (2.0-8.0); NEUTROPHILS % 57.7 % (40.0-76.0); PLATELET 258 x1000/uL (130-400); RED BLOOD CELL COUNT 3.48 mill/uL (4.7-6.1); RED CELL DISTRIBUTION WIDTH 16.6 % (11.6-14.6)
[2019-04-20] MEDS: BENAZEPRIL 10MG TABLET PO SCH ×2 (09:10→21:46)
[2019-04-20] MEDS: FOLIC ACID/VITAMIN B COMP W-C TABLET PO SCH (09:10)
[2019-04-20] MEDS: HYDRALAZINE HCL 50MG TABLET PO SCH ×2 (09:10→21:46)
[2019-04-20] MEDS: FUROSEMIDE 20MG TABLET PO SCH ×2 (09:10→21:46)
[2019-04-20] MEDS: NIFEDIPINE XL 60MG TAB PO SCH ×2 (09:10→21:46)
[2019-04-20] MEDS: PANTOPRAZOLE SODIUM 40 MG/VIAL IV SCH ×2 (09:28→18:21)
[2019-04-20] MEDS: MEROPENEM 500 MG in SODIUM CHLORIDE 0.9% 50 ML IV SCH ×2 (09:29→21:45)
[2019-04-20 12:00] VITALS: BP 141/85
[2019-04-20 16:00] VITALS: BP 170/90
[2019-04-20 20:21] VITALS: BP 127/71
[2019-04-21] VITALS (10 sets, daily range): BP systolic 84–151; BP diastolic 47–78
[2019-04-21 07:16] LABS: EOSINOPHILS % 5.1 % (0.0-5.0); HEMATOCRIT. 29.1 % (42.0-52.0); HEMOGLOBIN. 9.9 g/dL (14.0-18.0); LYMPHOCYTES % 29.4 % (20.0-50.0); MEAN CORPUSCULAR HEMOGLOBIN 30.1 pg (28.0-32.0); MEAN CORPUSCULAR VOLUME 88.7 fL (80.0-94.0); MEAN PLATELET VOLUME 7.2 fl (7.4-10.4); MONOCYTES % 6.6 % (2.0-8.0); NEUTROPHILS % 57.9 % (40.0-76.0); PLATELET 256 x1000/uL (130-400); RED BLOOD CELL COUNT 3.28 mill/uL (4.7-6.1); RED CELL DISTRIBUTION WIDTH 16.7 % (11.6-14.6)
[2019-04-21] MEDS: BLOOD SUGAR DIAGNOSTIC STRIP TEST SCH ×3 (07:20→18:28)
[2019-04-21] MEDS: FERROUS SULFATE 325MG TABLET PO SCH ×3 (07:50→18:39)
[2019-04-21] MEDS: INSULIN LISPRO 100 UNITS/ML SUBCUT SCH ×3 (07:50→18:10)
[2019-04-21] MEDS: FOLIC ACID/VITAMIN B COMP W-C TABLET PO SCH (09:00)
[2019-04-21] MEDS: PANTOPRAZOLE SODIUM 40 MG/VIAL IV SCH ×2 (09:00→18:39)
[2019-04-21] MEDS: NIFEDIPINE XL 60MG TAB PO SCH (09:00)
[2019-04-21] MEDS: FUROSEMIDE 20MG TABLET PO SCH ×2 (09:00→22:04)
[2019-04-21] MEDS: BENAZEPRIL 10MG TABLET PO SCH (09:00)
[2019-04-21] MEDS: HYDRALAZINE HCL 50MG TABLET PO SCH (09:00)
[2019-04-21] MEDS ORDERED: NIFE-32 PO (11:35)
[2019-04-21] MEDS ORDERED: OMEP40CA12 MT (11:35)
[2019-04-21] MEDS ORDERED: FURO20TA4 PO (11:35)
[2019-04-21] MEDS ORDERED: BENA10TA75 PO (11:35)
[2019-04-21] MEDS ORDERED: NEPVIT PO (11:35)
[2019-04-21] MEDS ORDERED: HYDR-4135 PO (11:35)
[2019-04-21] MEDS ORDERED: MEROPENEM 500 MG in SODIUM CHLORIDE 0.9% 50 ML IV SCH (12:00)
[2019-04-21] MEDS ORDERED: FENTANYL CITRATE/PF 50MCG/ML 2ML VIAL ONE (12:40)
[2019-04-21] MEDS ORDERED: LIDOCAINE HCL 1% 20ML VIAL (Pyxis) INJ ONE (12:46)
[2019-04-21] MEDS ORDERED: SODIUM BICARBONATE 4% (2.4MEQ) 5ML VIAL IV ONE (12:46)
[2019-04-21] MEDS ORDERED: MEROPENEM 500MG in NORMAL SALINE 50ML IV SCH (14:00)
== END 2019-04-21 22:13 | disposition home or self-care (01) | DRG 721 ==
LOC: ER 21:13 → 6EST 04-09 04:53 → EDBEDREQ 04-09 04:54 → EDBEDREQTM 04-09 04:54 → EDBEDREQSVC 04-09 04:54 → ENRESERV 04-09 08:12 → 6WST 04-09 13:00 → 7WST 04-21 10:52
PROVIDERS: ADMIT Internal Medicine; ATTEND Internal Medicine
PROC: 5A1D70Z Performance of Urinary Filtration, Intermittent, Less than 6 Hours Per Day (ICD-10-PCS; 2019-04-10)
PROC: 5A1D70Z Performance of Urinary Filtration, Intermittent, Less than 6 Hours Per Day (ICD-10-PCS; 2019-04-11)
PROC: 02PYX3Z Removal of Infusion Device from Great Vessel, External Approach (ICD-10-PCS; principal; 2019-04-13)
PROC: 02HV33Z Insertion of Infusion Device into Superior Vena Cava, Percutaneous Approach (ICD-10-PCS; 2019-04-14)
PROC: B548ZZA Ultrasonography of Superior Vena Cava, Guidance (ICD-10-PCS; 2019-04-14)
PROC: B5181ZA Fluoroscopy of Superior Vena Cava using Low Osmolar Contrast, Guidance (ICD-10-PCS; 2019-04-14)
PROC: 30233N1 Transfusion of Nonautologous Red Blood Cells into Peripheral Vein, Percutaneous Approach (ICD-10-PCS; 2019-04-14)
PROC: 5A1D70Z Performance of Urinary Filtration, Intermittent, Less than 6 Hours Per Day (ICD-10-PCS; 2019-04-14)
PROC: 5A1D70Z Performance of Urinary Filtration, Intermittent, Less than 6 Hours Per Day (ICD-10-PCS; 2019-04-16)
PROC: 5A1D70Z Performance of Urinary Filtration, Intermittent, Less than 6 Hours Per Day (ICD-10-PCS; 2019-04-18)
PROC: 0JH63XZ Insertion of Tunneled Vascular Access Device into Chest Subcutaneous Tissue and Fascia, Percutaneous Approach (ICD-10-PCS; 2019-04-21)
PROC: 02HV33Z Insertion of Infusion Device into Superior Vena Cava, Percutaneous Approach (ICD-10-PCS; 2019-04-21)
PROC: B5181ZA Fluoroscopy of Superior Vena Cava using Low Osmolar Contrast, Guidance (ICD-10-PCS; 2019-04-21)
PROC: 02PYX3Z Removal of Infusion Device from Great Vessel, External Approach (ICD-10-PCS; 2019-04-21)
PROC: 5A1D70Z Performance of Urinary Filtration, Intermittent, Less than 6 Hours Per Day (ICD-10-PCS; 2019-04-21)
DX: T80.211A Bloodstream infection due to central venous catheter, initial encounter (principal); J96.02 Acute respiratory failure with hypercapnia; R65.21 Severe sepsis with septic shock; E43 Unspecified severe protein-calorie malnutrition; G93.40 Encephalopathy, unspecified; A41.9 Sepsis, unspecified organism; J18.9 Pneumonia, unspecified organism; E11.22 Type 2 diabetes mellitus with diabetic chronic kidney disease; I12.0 Hypertensive chronic kidney disease with stage 5 chronic kidney disease or end stage renal disease; I08.3 Combined rheumatic disorders of mitral, aortic and tricuspid valves; I27.20 Pulmonary hypertension, unspecified; N18.6 End stage renal disease; E11.51 Type 2 diabetes mellitus with diabetic peripheral angiopathy without gangrene; D50.9 Iron deficiency anemia, unspecified; D63.8 Anemia in other chronic diseases classified elsewhere; E11.621 Type 2 diabetes mellitus with foot ulcer; E87.6 Hypokalemia; J44.1 Chronic obstructive pulmonary disease with (acute) exacerbation; J44.0 Chronic obstructive pulmonary disease with (acute) lower respiratory infection; I48.91 Unspecified atrial fibrillation; L97.529 Non-pressure chronic ulcer of other part of left foot with unspecified severity; K59.00 Constipation, unspecified; F10.10 Alcohol abuse, uncomplicated; K52.9 Noninfective gastroenteritis and colitis, unspecified; K29.70 Gastritis, unspecified, without bleeding; K35.80 Unspecified acute appendicitis; M48.56XA Collapsed vertebra, not elsewhere classified, lumbar region, initial encounter for fracture; N40.0 Benign prostatic hyperplasia without lower urinary tract symptoms; N39.0 Urinary tract infection, site not specified; K57.30 Diverticulosis of large intestine without perforation or abscess without bleeding; Z85.3 Personal history of malignant neoplasm of breast; Z86.19 Personal history of other infectious and parasitic diseases; Z99.2 Dependence on renal dialysis; Z90.10 Acquired absence of unspecified breast and nipple; Z79.899 Other long term (current) drug therapy
CPT/HCPCS: 36415; 36558; 36589; 74176; 76937; 77001; 78278; 80048; 80053; 80076; 80202; 82270; 82962; 83735; 83880; 84100; 84132; 84145; 85014; 85018; 85025; 85027; 86705; 86709; 86803; 86850; 86900; 86920; 87070; 87077; 87186; 87340; 90585; 90743; 97162; 99285; A6261; A9560; C1750; C1752; C1769; C1893; C9113; J0278; J0696; J0885; J1642; J1644; J1815; J2185; J2405; J3010; J3370; J3490; J7030; J7040; J7050; J7060; P9021; Q9963

== ENCOUNTER 2019-12-25 12:23 | Inpatient (IN) | payer MEDICAID ==
[~2019-12-25] VITALS: Ht 157.5 cm; Wt 53.1 kg
[~2019-12-25 12:23] MED LIST changes: +BENA10TA75 PO; -COR6 PO; +FURO20TA4 PO; +HYDR-4135 PO; +NEPVIT PO; +NIFE-32 PO; -NIFE-33 PO; -OMEP20CA14 PO; +OMEP40CA12 MT; -THIA100T72 PO
[2019-12-25] MEDS ORDERED: SODIUM CHLORIDE 0.9% 1,000 ML IV ONE (13:16)
[2019-12-25] MEDS ORDERED: MORPHINE SULFATE 4 MG/ML CPJ (NOT FOR IM USE) IV STA (13:16)
[2019-12-25] MEDS ORDERED: ONDANSETRON HCL 4MG/2ML INJ IV STA (13:16)
[2019-12-25 13:27] LABS: BASOPHILS % 0.4 % (0.0-2.0); HEMATOCRIT. 26.8 % (42.0-52.0); HEMOGLOBIN. 8.8 g/dL (14.0-18.0); LYMPHOCYTES % 15.2 % (20.0-50.0); MEAN CORPUSCULAR VOLUME 88.1 fL (80.0-94.0); MEAN PLATELET VOLUME 7.2 fl (7.4-10.4); MONOCYTES % 5.7 % (2.0-8.0); NEUTROPHILS % 77.7 % (40.0-76.0); PLATELET 323 x1000/uL (130-400); RED BLOOD CELL COUNT 3.05 mill/uL (4.7-6.1); RED CELL DISTRIBUTION WIDTH 13.7 % (11.6-14.6)
[2019-12-25 13:32] LABS: CHLORIDE 100 mEq/L (98-107)
[2019-12-25 13:36] LABS: INR 1.1; PARTIAL THROMBOPLASTIN TIME 30.6 sec (23.4-31.0); PROTHROMBIN TIME 11.4 sec (9.6-11.0)
[2019-12-25 15:59] LABS: CLARITY URINE CLOUDY (CLEAR); COLOR URINE YELLOW (YELLOW); KETONES URINE NEGATIVE (NEGATIVE); LEUKOCYTE ESTERASE URINE 2+ (NEGATIVE); NITRITE URINE NEGATIVE (NEGATIVE); OCCULT BLOOD URINE NEGATIVE (NEGATIVE); PH URINE >=9.0 (4.5-8.0); PROTEIN URINE 3+ (NEGATIVE); SPECIFIC GRAVITY URINE 1.015 (1.005-1.030)
[2019-12-25] MEDS ORDERED: CEFTRIAXONE 1 G PREMIX 50 ML IV ONE (16:15)
[2019-12-25] MEDS ORDERED: MORPHINE SULFATE 4 MG/ML CPJ (NOT FOR IM USE) IV ONE (16:30)
[2019-12-25] MEDS ORDERED: CLONIDINE 0.2MG TABLET PO ONE (16:30)
[2019-12-25 22:50] VITALS: BP 176/83
[2019-12-25 23:00] VITALS: BP 176/83
[2019-12-26] VITALS (7 sets, daily range): BP systolic 139–183; BP diastolic 70–86
[2019-12-26] MEDS ORDERED: CALC0.253 PO ×2 (01:29→01:45)
[2019-12-26] MEDS ORDERED: FOLI0.8T23 PO (01:32)
[2019-12-26] MEDS ORDERED: DIPH1TAB PO (01:41)
[2019-12-26] MEDS ORDERED: NONFORMULARY BOTHEYE (01:44)
[2019-12-26] MEDS ORDERED: DIPH50CA38 PO (01:46)
[2019-12-26] MEDS ORDERED: [UNRECOGNIZED DRUG - OTHER] BOTHEYE SCH (02:00)
[2019-12-26] MEDS ORDERED: DIPHENOXYLATE/ATROPINE 2.5/0.025MG TABLET PO PRN ×2 (02:00→14:23)
[2019-12-26] MEDS ORDERED: DIPHENHYDRAMINE 50MG CAPSULE PO PRN (02:00)
[2019-12-26] MEDS ORDERED: DEXTROSE 50% WATER 50ML SYRINGE IV PRN (02:00)
[2019-12-26] MEDS: BLOOD SUGAR DIAGNOSTIC STRIP TEST SCH ×4 (06:27→21:11)
[2019-12-26] MEDS ORDERED: HYDROCODONE/ACETAMINOPHEN 5/325MG TABLET PO PRN (06:30)
[2019-12-26] MEDS: INSULIN LISPRO 100 UNITS/ML SUBCUT SCH ×4 (07:40→21:00)
[2019-12-26] MEDS: FERROUS SULFATE 325MG TABLET PO SCH ×3 (07:40→17:40)
[2019-12-26] MEDS ORDERED: ENOXAPARIN 40MG/0.4ML SYR SUBCUT SCH (09:00)
[2019-12-26] MEDS ORDERED: CALCITRIOL 0.25MCG CAPSULE PO SCH (09:00)
[2019-12-26] MEDS: DICLOFENAC SODIUM 0.1% OPHTH 2.5 ML BOTTLE BOTHEYE SCH (09:29)
[2019-12-26] MEDS: CALCITRIOL 0.25MCG CAPSULE PO SCH (09:29)
[2019-12-26] MEDS: ENOXAPARIN 30MG/0.3ML SYR SUBCUT SCH (09:29)
[2019-12-26] MEDS: FOLIC ACID/VITAMIN B COMP W-C TABLET PO SCH (09:30)
[2019-12-26] MEDS ORDERED: CEFTRIAXONE 1 G PREMIX 50 ML IV SCH (10:15)
[2019-12-26] MEDS: HYDROCODONE/ACETAMINOPHEN 5/325MG TABLET PO PRN ×3 (12:35→19:25)
[2019-12-26] MEDS ORDERED: EPOETIN ALFA 4000UNITS/ML VIAL SUBCUT SCH ×2 (13:00→21:00)
[2019-12-26] MEDS: NIFEDIPINE XL 60MG TAB PO SCH (14:30)
[2019-12-26] MEDS: CLONIDINE 0.1MG TABLET PO PRN (15:50)
[2019-12-26] MEDS: CEFTRIAXONE 1,000 MG in DEXTROSE 5% WATER 50 ML IV SCH (17:44)
[2019-12-27] VITALS: BP 188/100
[2019-12-27] MEDS: CLONIDINE 0.1MG TABLET PO PRN (00:06)
[2019-12-27] MEDS: HYDROCODONE/ACETAMINOPHEN 5/325MG TABLET PO PRN ×3 (00:26→19:56)
[2019-12-27] MEDS ORDERED: EPOETIN ALFA 4000UNITS/ML VIAL SUBCUT SCH (01:00)
[2019-12-27] MEDS: IRON SUCROSE COMPLEX 100 MG/5 ML ML IV SCH (01:49)
[2019-12-27 04:00] VITALS: BP 129/85
[2019-12-27] MEDS: INSULIN LISPRO 100 UNITS/ML SUBCUT SCH ×4 (06:21→21:00)
[2019-12-27] MEDS: BLOOD SUGAR DIAGNOSTIC STRIP TEST SCH ×4 (06:21→21:00)
[2019-12-27 08:00] VITALS: BP 143/89
[2019-12-27] MEDS: CALCITRIOL 0.25MCG CAPSULE PO SCH (08:04)
[2019-12-27] MEDS: FOLIC ACID/VITAMIN B COMP W-C TABLET PO SCH (08:04)
[2019-12-27] MEDS: FERROUS SULFATE 325MG TABLET PO SCH ×3 (08:04→16:58)
[2019-12-27] MEDS: ENOXAPARIN 30MG/0.3ML SYR SUBCUT SCH (08:05)
[2019-12-27] MEDS: NIFEDIPINE XL 60MG TAB PO SCH (08:05)
[2019-12-27] MEDS: LOSARTAN POTASSIUM 50 MG TABLET PO SCH (08:05)
[2019-12-27] MEDS: DICLOFENAC SODIUM 0.1% OPHTH 2.5 ML BOTTLE BOTHEYE SCH (08:07)
[2019-12-27 12:00] VITALS: BP 124/77
[2019-12-27 16:00] VITALS: BP 159/79
[2019-12-27] MEDS: CEFTRIAXONE 1,000 MG in DEXTROSE 5% WATER 50 ML IV SCH (16:24)
[2019-12-27 20:00] VITALS: BP 108/63
[2019-12-28] VITALS (8 sets, daily range): BP systolic 87–169; BP diastolic 57–103
[2019-12-28] MEDS: HYDROCODONE/ACETAMINOPHEN 5/325MG TABLET PO PRN ×4 (00:49→20:28)
[2019-12-28 06:09] LABS: BASOPHILS % 0.9 % (0.0-2.0); EOSINOPHILS % 3.1 % (0.0-5.0); HEMATOCRIT. 24.3 % (42.0-52.0); HEMOGLOBIN. 8.1 g/dL (14.0-18.0); LYMPHOCYTES % 30.4 % (20.0-50.0); MEAN CORPUSCULAR HEMOGLOBIN 29.6 pg (28.0-32.0); MEAN CORPUSCULAR VOLUME 88.8 fL (80.0-94.0); MEAN PLATELET VOLUME 7.6 fl (7.4-10.4); MONOCYTES % 9.6 % (2.0-8.0); PLATELET 282 x1000/uL (130-400); RED BLOOD CELL COUNT 2.73 mill/uL (4.7-6.1); RED CELL DISTRIBUTION WIDTH 13.4 % (11.6-14.6)
[2019-12-28] MEDS: FERROUS SULFATE 325MG TABLET PO SCH ×3 (06:40→16:55)
[2019-12-28] MEDS: BLOOD SUGAR DIAGNOSTIC STRIP TEST SCH ×4 (06:40→20:12)
[2019-12-28] MEDS: INSULIN LISPRO 100 UNITS/ML SUBCUT SCH ×4 (06:44→20:07)
[2019-12-28] MEDS: ENOXAPARIN 30MG/0.3ML SYR SUBCUT SCH (08:47)
[2019-12-28] MEDS: IRON SUCROSE COMPLEX 100 MG/5 ML ML IV SCH (08:48)
[2019-12-28] MEDS: DICLOFENAC SODIUM 0.1% OPHTH 2.5 ML BOTTLE BOTHEYE SCH (08:48)
[2019-12-28] MEDS: NIFEDIPINE XL 60MG TAB PO SCH (08:48)
[2019-12-28] MEDS: LOSARTAN POTASSIUM 50 MG TABLET PO SCH (08:48)
[2019-12-28] MEDS: CALCITRIOL 0.25MCG CAPSULE PO SCH (08:48)
[2019-12-28] MEDS: FOLIC ACID/VITAMIN B COMP W-C TABLET PO SCH (08:48)
[2019-12-28] MEDS ORDERED: LACTULOSE 20G/30ML UDC PO NR (16:15)
[2019-12-28] MEDS: DOCUSATE SODIUM 250MG CAPSULE PO SCH (16:55)
[2019-12-28] MEDS: CEFTRIAXONE 1,000 MG in DEXTROSE 5% WATER 50 ML IV SCH (16:55)
[2019-12-29] VITALS: BP 129/75
[2019-12-29 04:00] VITALS: BP 118/51
[2019-12-29] MEDS: HYDROCODONE/ACETAMINOPHEN 5/325MG TABLET PO PRN (04:52)
[2019-12-29] MEDS: INSULIN LISPRO 100 UNITS/ML SUBCUT SCH ×4 (06:24→21:00)
[2019-12-29] MEDS: BLOOD SUGAR DIAGNOSTIC STRIP TEST SCH ×4 (06:24→20:37)
[2019-12-29] MEDS: FERROUS SULFATE 325MG TABLET PO SCH ×4 (06:42→17:40)
[2019-12-29 08:00] VITALS: BP 123/69
[2019-12-29] MEDS: NIFEDIPINE XL 60MG TAB PO SCH (09:00)
[2019-12-29] MEDS: ENOXAPARIN 30MG/0.3ML SYR SUBCUT SCH (09:00)
[2019-12-29] MEDS: LOSARTAN POTASSIUM 50 MG TABLET PO SCH (09:00)
[2019-12-29] MEDS: FOLIC ACID/VITAMIN B COMP W-C TABLET PO SCH (09:28)
[2019-12-29] MEDS: DOCUSATE SODIUM 250MG CAPSULE PO SCH (09:28)
[2019-12-29] MEDS: IRON SUCROSE COMPLEX 100 MG/5 ML ML IV SCH (09:28)
[2019-12-29] MEDS: CALCITRIOL 0.25MCG CAPSULE PO SCH (09:28)
[2019-12-29] MEDS: DICLOFENAC SODIUM 0.1% OPHTH 2.5 ML BOTTLE BOTHEYE SCH (09:40)
[2019-12-29] MEDS ORDERED: ONDANSETRON HCL 4MG/2ML INJ IV PRN (10:15)
[2019-12-29] MEDS ORDERED: BISACODYL 10MG SUPP PR PRN (10:15)
[2019-12-29 12:00] VITALS: BP 107/56
[2019-12-29] MEDS: CEFTRIAXONE 1,000 MG in DEXTROSE 5% WATER 50 ML IV SCH (16:20)
[2019-12-29] MEDS: PANTOPRAZOLE SODIUM 40 MG/VIAL IV SCH (16:21)
[2019-12-29 16:30] VITALS: BP 107/64
[2019-12-29 17:11] LABS: HEMATOCRIT. 24.7 % (42.0-52.0); HEMOGLOBIN. 8.4 g/dL (14.0-18.0); MEAN CORPUSCULAR VOLUME 88.8 fL (80.0-94.0); MEAN PLATELET VOLUME 7.1 fl (7.4-10.4); PLATELET 376 x1000/uL (130-400); RED BLOOD CELL COUNT 2.79 mill/uL (4.7-6.1); RED CELL DISTRIBUTION WIDTH 13.8 % (11.6-14.6)
[2019-12-29] MEDS: METOCLOPRAMIDE HCL 10MG/2ML VIAL IV SCH ×2 (18:08→23:35)
[2019-12-29 18:29] LABS: PLATELET ESTIMATE NORMAL
[2019-12-29 20:00] VITALS: BP 105/67
[2019-12-30] VITALS: BP 119/72
[2019-12-30 04:00] VITALS: BP 140/78
[2019-12-30] MEDS: METOCLOPRAMIDE HCL 10MG/2ML VIAL IV SCH ×4 (05:21→23:30)
[2019-12-30] MEDS: HYDROCODONE/ACETAMINOPHEN 5/325MG TABLET PO PRN ×3 (05:22→23:59)
[2019-12-30] MEDS: INSULIN LISPRO 100 UNITS/ML SUBCUT SCH ×3 (05:36→17:40)
[2019-12-30] MEDS: BLOOD SUGAR DIAGNOSTIC STRIP TEST SCH ×4 (05:36→19:49)
[2019-12-30 07:07] LABS: BASOPHILS % 0.5 % (0.0-2.0); EOSINOPHILS % 0.9 % (0.0-5.0); HEMATOCRIT. 24.1 % (42.0-52.0); LYMPHOCYTES % 19.5 % (20.0-50.0); MEAN CORPUSCULAR HEMOGLOBIN 29.3 pg (28.0-32.0); MEAN CORPUSCULAR VOLUME 88.7 fL (80.0-94.0); MEAN PLATELET VOLUME 7.2 fl (7.4-10.4); MONOCYTES % 4.5 % (2.0-8.0); NEUTROPHILS % 74.6 % (40.0-76.0); PLATELET 361 x1000/uL (130-400); RED BLOOD CELL COUNT 2.72 mill/uL (4.7-6.1); RED CELL DISTRIBUTION WIDTH 13.9 % (11.6-14.6)
[2019-12-30 08:00] VITALS: BP 135/74
[2019-12-30] MEDS: PANTOPRAZOLE SODIUM 40 MG/VIAL IV SCH (08:42)
[2019-12-30] MEDS: DOCUSATE SODIUM 250MG CAPSULE PO SCH (08:44)
[2019-12-30] MEDS: FOLIC ACID/VITAMIN B COMP W-C TABLET PO SCH (08:44)
[2019-12-30] MEDS: CALCITRIOL 0.25MCG CAPSULE PO SCH (08:44)
[2019-12-30] MEDS: LOSARTAN POTASSIUM 50 MG TABLET PO SCH (08:44)
[2019-12-30] MEDS: NIFEDIPINE XL 60MG TAB PO SCH (08:44)
[2019-12-30] MEDS: FERROUS SULFATE 325MG TABLET PO SCH ×3 (08:44→17:40)
[2019-12-30] MEDS: ENOXAPARIN 30MG/0.3ML SYR SUBCUT SCH (08:45)
[2019-12-30] MEDS: DICLOFENAC SODIUM 0.1% OPHTH 2.5 ML BOTTLE BOTHEYE SCH (08:51)
[2019-12-30 11:58] VITALS: BP 153/84
[2019-12-30] MEDS ORDERED: MEROPENEM 1,000 MG in SODIUM CHLORIDE 0.9% 100 ML IV SCH (12:45)
[2019-12-30 16:00] VITALS: BP 122/71
[2019-12-30] MEDS: MEROPENEM 500MG in NORMAL SALINE 50ML IV SCH (16:33)
[2019-12-31] VITALS (7 sets, daily range): BP systolic 123–141; BP diastolic 71–79
[2019-12-31] MEDS: INSULIN LISPRO 100 UNITS/ML SUBCUT SCH ×5 (00:01→21:00)
[2019-12-31] MEDS: METOCLOPRAMIDE HCL 10MG/2ML VIAL IV SCH ×3 (05:37→17:56)
[2019-12-31] MEDS: BLOOD SUGAR DIAGNOSTIC STRIP TEST SCH ×4 (05:43→21:02)
[2019-12-31 07:33] LABS: BASOPHILS % 0.6 % (0.0-2.0); HEMATOCRIT. 24.9 % (42.0-52.0); HEMOGLOBIN. 8.4 g/dL (14.0-18.0); LYMPHOCYTES % 17.1 % (20.0-50.0); MEAN CORPUSCULAR HEMOGLOBIN 29.9 pg (28.0-32.0); MEAN CORPUSCULAR VOLUME 89.1 fL (80.0-94.0); MEAN PLATELET VOLUME 7.1 fl (7.4-10.4); MONOCYTES % 4.1 % (2.0-8.0); NEUTROPHILS % 76.2 % (40.0-76.0); PLATELET 449 x1000/uL (130-400); RED BLOOD CELL COUNT 2.79 mill/uL (4.7-6.1)
[2019-12-31] MEDS: FERROUS SULFATE 325MG TABLET PO SCH ×3 (07:40→17:56)
[2019-12-31] MEDS: ENOXAPARIN 30MG/0.3ML SYR SUBCUT SCH (08:26)
[2019-12-31] MEDS: PANTOPRAZOLE SODIUM 40 MG/VIAL IV SCH (08:26)
[2019-12-31] MEDS: DOCUSATE SODIUM 250MG CAPSULE PO SCH (08:37)
[2019-12-31] MEDS: DICLOFENAC SODIUM 0.1% OPHTH 2.5 ML BOTTLE BOTHEYE SCH (08:37)
[2019-12-31] MEDS: CALCITRIOL 0.25MCG CAPSULE PO SCH (08:48)
[2019-12-31] MEDS: FOLIC ACID/VITAMIN B COMP W-C TABLET PO SCH (08:48)
[2019-12-31] MEDS: NIFEDIPINE XL 60MG TAB PO SCH (08:48)
[2019-12-31] MEDS: LOSARTAN POTASSIUM 50 MG TABLET PO SCH (08:48)
[2019-12-31] MEDS ORDERED: THROMBIN (BOVINE) 5000 UNITS/VIAL TOP ONE (08:55)
[2019-12-31] MEDS ORDERED: BACITRACIN 15GM TUBE TOP ONE (08:55)
[2019-12-31] MEDS ORDERED: LIDOCAINE HCL 1% 20ML VIAL (Pyxis) INJ ONE (08:55)
[2019-12-31] MEDS ORDERED: BACITRACIN 50,000 UNITS/VIAL ONE (08:56)
[2019-12-31] MEDS ORDERED: HEPARIN SODIUM 1,000 UNIT/1ML VIAL IV ONE (08:56)
[2019-12-31] MEDS ORDERED: BUPIVACAINE HCL/PF 0.5% (5MG/ML) 10ML ONE (08:56)
[2019-12-31] MEDS ORDERED: FENTANYL CITRATE/PF 50MCG/ML 2ML VIAL ONE (11:28)
[2019-12-31] MEDS ORDERED: MIDAZOLAM HCL 2 MG/2 ML VIAL ONE (11:28)
[2019-12-31] MEDS ORDERED: PROPOFOL 200MG/20ML VIAL IV ONE (11:28)
[2019-12-31] MEDS ORDERED: CEFAZOLIN SODIUM 1000MG/VIAL ONE (11:39)
[2019-12-31] MEDS ORDERED: ONDANSETRON HCL 4MG/2ML INJ ONE (12:35)
[2019-12-31] MEDS: MEROPENEM 500MG in NORMAL SALINE 50ML IV SCH (15:28)
[2019-12-31] MEDS: TRAMADOL 50MG TABLET PO PRN (15:28)
[2020-01-01] MEDS: METOCLOPRAMIDE HCL 10MG/2ML VIAL IV SCH ×4 (00:25→17:27)
[2020-01-01 04:59] VITALS: BP 128/77
[2020-01-01] MEDS: TRAMADOL 50MG TABLET PO PRN (06:05)
[2020-01-01] MEDS: BLOOD SUGAR DIAGNOSTIC STRIP TEST SCH ×3 (06:10→17:22)
[2020-01-01] MEDS: FERROUS SULFATE 325MG TABLET PO SCH ×3 (06:57→17:27)
[2020-01-01] MEDS: INSULIN LISPRO 100 UNITS/ML SUBCUT SCH ×3 (06:57→17:22)
[2020-01-01 08:00] VITALS: BP 153/80
[2020-01-01] MEDS: PANTOPRAZOLE SODIUM 40 MG/VIAL IV SCH (09:03)
[2020-01-01] MEDS: ENOXAPARIN 30MG/0.3ML SYR SUBCUT SCH (09:03)
[2020-01-01] MEDS: DOCUSATE SODIUM 250MG CAPSULE PO SCH (09:47)
[2020-01-01] MEDS: FOLIC ACID/VITAMIN B COMP W-C TABLET PO SCH (09:47)
[2020-01-01] MEDS: LOSARTAN POTASSIUM 50 MG TABLET PO SCH (09:48)
[2020-01-01] MEDS: CALCITRIOL 0.25MCG CAPSULE PO SCH (09:48)
[2020-01-01] MEDS: NIFEDIPINE XL 60MG TAB PO SCH (09:48)
[2020-01-01] MEDS: DICLOFENAC SODIUM 0.1% OPHTH 2.5 ML BOTTLE BOTHEYE SCH (09:50)
[2020-01-01 11:48] VITALS: BP 167/87
[2020-01-01 11:52] LABS: BASOPHILS % 0.6 % (0.0-2.0); EOSINOPHILS % 1.6 % (0.0-5.0); HEMATOCRIT. 22.3 % (42.0-52.0); HEMOGLOBIN. 7.5 g/dL (14.0-18.0); LYMPHOCYTES % 17.5 % (20.0-50.0); MEAN CORPUSCULAR HEMOGLOBIN 29.8 pg (28.0-32.0); MEAN PLATELET VOLUME 6.5 fl (7.4-10.4); NEUTROPHILS % 74.3 % (40.0-76.0); PLATELET 410 x1000/uL (130-400); RED CELL DISTRIBUTION WIDTH 13.7 % (11.6-14.6)
[2020-01-01] MEDS ORDERED: TRAM50TA3 MT (13:39)
[2020-01-01 16:00] VITALS: BP 131/69
[2020-01-01] MEDS: MEROPENEM 500MG in NORMAL SALINE 50ML IV SCH (17:02)
[2020-01-01 18:14] VITALS: BP 131/69
[2020-01-01 19:46] VITALS: BP 106/54
== END 2020-01-01 20:05 | disposition home or self-care (01) | DRG 710 ==
LOC: ER 12:23 → 8WST 18:17 → EDBEDREQ 18:21 → EDBEDREQTM 18:21 → ENRESERV 20:29
PROVIDERS: ADMIT Internal Medicine; ATTEND Internal Medicine
PROC: 5A1D70Z Performance of Urinary Filtration, Intermittent, Less than 6 Hours Per Day (ICD-10-PCS; 2019-12-26)
PROC: 5A1D70Z Performance of Urinary Filtration, Intermittent, Less than 6 Hours Per Day (ICD-10-PCS; 2019-12-29)
PROC: 03180ZD Bypass Left Brachial Artery to Upper Arm Vein, Open Approach (ICD-10-PCS; principal; 2019-12-31)
PROC: 5A1D70Z Performance of Urinary Filtration, Intermittent, Less than 6 Hours Per Day (ICD-10-PCS; 2020-01-01)
DX: A41.9 Sepsis, unspecified organism (principal); E44.1 Mild protein-calorie malnutrition; N18.6 End stage renal disease; E87.1 Hypo-osmolality and hyponatremia; E11.22 Type 2 diabetes mellitus with diabetic chronic kidney disease; D63.8 Anemia in other chronic diseases classified elsewhere; I12.0 Hypertensive chronic kidney disease with stage 5 chronic kidney disease or end stage renal disease; K57.30 Diverticulosis of large intestine without perforation or abscess without bleeding; N12 Tubulo-interstitial nephritis, not specified as acute or chronic; E11.43 Type 2 diabetes mellitus with diabetic autonomic (poly)neuropathy; Z20.828 Contact with and (suspected) exposure to other viral communicable diseases; K31.84 Gastroparesis; K59.00 Constipation, unspecified; Z99.2 Dependence on renal dialysis; Z79.899 Other long term (current) drug therapy
CPT/HCPCS: 36415; 71045; 74018; 74176; 80048; 80053; 81003; 82962; 83036; 83880; 84484; 85025; 87077; 87186; 87426; 93005; 93970; 99285; C9113; J0690; J0696; J0885; J1644; J1650; J1815; J2185; J2250; J2270; J2405; J2704; J2765; J3010; J3490; J7030; J7060

== ENCOUNTER 2020-03-15 17:01 | Emergency (ER) | payer MEDICAID ==
[~2020-03-15] VITALS: Ht 144.8 cm; Wt 46.0 kg
[~2020-03-15 17:01] MED LIST changes: -BENA10TA75 PO; +CALC0.253 PO; +DIPH1TAB PO; +DIPH50CA38 PO; +FOLI0.8T23 PO; -FURO20TA4 PO; -GLIP5TAB12 PO; -HYDR-4135 PO; -LACT10SO7 PO; -NEPVIT PO; -NIFE-32 PO; +NONFORMULARY BOTHEYE; -OMEP40CA12 MT; +TRAM50TA3 MT
[2020-03-15 19:15] VITALS: BP 155/40
[2020-03-15] MEDS ORDERED: ACETAMINOPHEN 325MG TABLET PO ONE (20:45)
[2020-03-15] MEDS ORDERED: HYDROCODONE/ACETAMINOPHEN 5/325MG TABLET PO ONE (20:45)
[2020-03-15 21:47] LABS: BASOPHILS % 0.3 % (0.0-2.0); EOSINOPHILS % 0.2 % (0.0-5.0); HEMATOCRIT. 23.1 % (42.0-52.0); HEMOGLOBIN. 7.6 g/dL (14.0-18.0); LYMPHOCYTES % 14.3 % (20.0-50.0); MEAN CORPUSCULAR HEMOGLOBIN 28.1 pg (28.0-32.0); MEAN CORPUSCULAR VOLUME 85.5 fL (80.0-94.0); MEAN PLATELET VOLUME 7.1 fl (7.4-10.4); MONOCYTES % 4.7 % (2.0-8.0); NEUTROPHILS % 80.5 % (40.0-76.0); PLATELET 295 x1000/uL (130-400); RED CELL DISTRIBUTION WIDTH 14.2 % (11.6-14.6)
[2020-03-15 21:55] LABS: CHLORIDE 104 mEq/L (98-107)
[2020-03-15 21:57] LABS: INR 1.1; PROTHROMBIN TIME 11.7 sec (9.6-11.0)
== END 2020-03-16 06:21 | disposition home or self-care (01) ==
LOC: ER 17:01
DX: I12.0 Hypertensive chronic kidney disease with stage 5 chronic kidney disease or end stage renal disease (principal); E11.22 Type 2 diabetes mellitus with diabetic chronic kidney disease; M54.5 Low back pain; N18.6 End stage renal disease; Z99.2 Dependence on renal dialysis
CPT/HCPCS: 36415; 71045; 80053; 82962; 85025; 93005; 99285

== ENCOUNTER 2020-05-05 02:38 | Emergency (ER) | payer MEDICAID ==
[~2020-05-05] VITALS: Ht 157.5 cm; Wt 55.0 kg
[2020-05-05 03:00] VITALS: BP 141/80
== END 2020-05-05 03:46 | disposition home or self-care (01) ==
LOC: ER 02:38
DX: M54.9 Dorsalgia, unspecified (principal); G89.29 Other chronic pain; M40.209 Unspecified kyphosis, site unspecified; M47.9 Spondylosis, unspecified; S32.039A Unspecified fracture of third lumbar vertebra, initial encounter for closed fracture; I12.0 Hypertensive chronic kidney disease with stage 5 chronic kidney disease or end stage renal disease; E11.22 Type 2 diabetes mellitus with diabetic chronic kidney disease; N18.6 End stage renal disease; Z99.2 Dependence on renal dialysis; X58.XXXA Exposure to other specified factors, initial encounter; Y93.9 Activity, unspecified; Y92.9 Unspecified place or not applicable; Z98.890 Other specified postprocedural states
CPT/HCPCS: 99283

== ENCOUNTER 2020-06-03 07:02 | Inpatient (IN) | payer MEDICAID, OTHER ==
[~2020-06-03] VITALS: Ht 167.6 cm; Wt 49.5 kg
[2020-06-03 08:22] LABS: BASOPHILS % 0.9 % (0.0-2.0); EOSINOPHILS % 3.4 % (0.0-5.0); HEMATOCRIT. 25.6 % (42.0-52.0); HEMOGLOBIN. 8.4 g/dL (14.0-18.0); MEAN CORPUSCULAR HEMOGLOBIN 28.4 pg (28.0-32.0); MEAN CORPUSCULAR VOLUME 86.9 fL (80.0-94.0); MEAN PLATELET VOLUME 6.7 fl (7.4-10.4); MONOCYTES % 5.3 % (2.0-8.0); NEUTROPHILS % 69.4 % (40.0-76.0); PLATELET 426 x1000/uL (130-400); RED BLOOD CELL COUNT 2.94 mill/uL (4.7-6.1); RED CELL DISTRIBUTION WIDTH 18.9 % (11.6-14.6)
[2020-06-03 08:29] LABS: CHLORIDE 102 mEq/L (98-107)
[2020-06-03 08:31] LABS: INR 1.1; PROTHROMBIN TIME 11.6 sec (9.6-11.0)
[2020-06-03] MEDS ORDERED: MORPHINE SULFATE 4 MG/ML CPJ (NOT FOR IM USE) IV NR (09:45)
[2020-06-03] MEDS ORDERED: PIPERACILLIN/TAZOBACTAM 3.375GM/50ML PREMIX IV ONE (09:45)
[2020-06-03] MEDS ORDERED: PIPERACILLIN/TAZ 3.375G PREMIX 50 ML IV NR (09:45)
[2020-06-03] MEDS ORDERED: VANCOMYCIN 1 G PREMIX 200 ML IV NR (09:45)
[2020-06-03] MEDS ORDERED: DIPHENHYDRAMINE 50MG/ML VIAL IV PRN (12:00)
[2020-06-03] MEDS ORDERED: PIPERACILLIN/TAZ 3.375G PREMIX 50 ML IV SCH (12:00)
[2020-06-03] MEDS ORDERED: IPRATROPIUM/ALBUTEROL 0.5-3(2.5)MG/3ML NEB HHN PRN (12:00)
[2020-06-03] MEDS: MORPHINE SULFATE 2 MG/ML CPJ (NOT FOR IM USE) IV PRN ×2 (13:17→21:25)
[2020-06-03 15:00] VITALS: BP 132/71
[2020-06-03 16:00] VITALS: BP 132/71
[2020-06-03 17:23] LABS: CLARITY URINE TURBID (CLEAR); COLOR URINE YELLOW (YELLOW); KETONES URINE TRACE (NEGATIVE); LEUKOCYTE ESTERASE URINE 3+ (NEGATIVE); NITRITE URINE NEGATIVE (NEGATIVE); OCCULT BLOOD URINE 1+ (NEGATIVE); PROTEIN URINE 3+ (NEGATIVE); UROBILINOGEN URINE 0.2 E.U./dL (0.2-1.0)
[2020-06-03 17:34] LABS: *AMPHETAMINES SCREEN URINE NEGATIVE (NEGATIVE); *BARBITURATES SCREEN URINE NEGATIVE (NEGATIVE); *BENZODIAZEPINES SCREEN URINE NEGATIVE (NEGATIVE); *COCAINE SCREEN URINE NEGATIVE (NEGATIVE)
[2020-06-03 17:35] LABS: CANNABINOID URINE SCREEN PRESUMTIVE POSITIVE (NEGATIVE); METHADONE URINE SCREEN NEGATIVE (NEGATIVE); OPIATES URINE SCREEN PRESUMTIVE POSITIVE (NEGATIVE); PHENCYCLIDINE URINE SCREEN NEGATIVE (NEGATIVE)
[2020-06-03] MEDS ORDERED: PIPERACILLIN/TAZOBACTAM 2.25 G in DEXTROSE 5% WATER 50 ML IV SCH (18:00)
[2020-06-03 20:00] VITALS: BP 122/81
[2020-06-03] MEDS ORDERED: EPOETIN ALFA-EPBX 4,000 UNIT/ML VIAL SUBCUT NR (20:00)
[2020-06-03] MEDS ORDERED: CALC0.253 MT (20:13)
[2020-06-03] MEDS ORDERED: LISI10TA26 MT (20:13)
[2020-06-03] MEDS ORDERED: AMLO10TA80 PO (20:13)
[2020-06-03] MEDS ORDERED: DIPH1TAB24 MT (20:13)
[2020-06-03] MEDS ORDERED: BENA10TA74 MT (20:13)
[2020-06-03] MEDS ORDERED: DIPH50CA38 PO (20:13)
[2020-06-03] MEDS: PIPERACILLIN/TAZOBACTAM 2.25 G in DEXTROSE 5% WATER 50 ML IV SCH (20:36)
[2020-06-04] VITALS (22 sets, daily range): BP systolic 103–154; BP diastolic 57–89
[2020-06-04] MEDS: PIPERACILLIN/TAZOBACTAM 2.25 G in DEXTROSE 5% WATER 50 ML IV SCH ×3 (04:03→20:23)
[2020-06-04] MEDS ORDERED: DEXTROSE 50% WATER 50ML SYRINGE IV NR (07:15)
[2020-06-04 08:53] LABS: BASOPHILS % 0.7 % (0.0-2.0); EOSINOPHILS % 2.5 % (0.0-5.0); HEMATOCRIT. 23.7 % (42.0-52.0); HEMOGLOBIN. 7.8 g/dL (14.0-18.0); LYMPHOCYTES % 25.7 % (20.0-50.0); MEAN CORPUSCULAR HEMOGLOBIN 28.8 pg (28.0-32.0); MEAN CORPUSCULAR VOLUME 87.6 fL (80.0-94.0); MEAN PLATELET VOLUME 6.9 fl (7.4-10.4); MONOCYTES % 7.3 % (2.0-8.0); NEUTROPHILS % 63.8 % (40.0-76.0); PLATELET 339 x1000/uL (130-400); RED BLOOD CELL COUNT 2.71 mill/uL (4.7-6.1); RED CELL DISTRIBUTION WIDTH 19.1 % (11.6-14.6)
[2020-06-04] MEDS ORDERED: IRON SUCROSE COMPLEX 100 MG/5 ML ML IV SCH (09:00)
[2020-06-04] MEDS ORDERED: PNEUMOCOCCAL 23-VAL P-SAC VAC 0.5 ML IM ONE (09:00)
[2020-06-04] MEDS ORDERED: INFLUENZA VACCINE 05/PF 0.5 ML VIAL IM ONE (09:00)
[2020-06-04 09:02] LABS: CHLORIDE 103 mEq/L (98-107)
[2020-06-04 09:12] LABS: LDL CHOLESTEROL 71 mg/dL (5-100)
[2020-06-04 09:14] LABS: HDL CHOLESTEROL 43 mg/dL (40-59)
[2020-06-04] MEDS ORDERED: SODIUM BICARBONATE 4% (2.4MEQ) 5ML VIAL IV ONE (11:06)
[2020-06-04] MEDS ORDERED: FENTANYL CITRATE/PF 50MCG/ML 2ML VIAL ONE (11:06)
[2020-06-04] MEDS ORDERED: LIDOCAINE HCL 1% 20ML VIAL (Pyxis) INJ ONE ×2 (11:06→11:34)
[2020-06-04] MEDS: METOPROLOL TARTRATE 25MG TABLET PO SCH ×2 (12:00→20:43)
[2020-06-04] MEDS: MORPHINE SULFATE 2 MG/ML CPJ (NOT FOR IM USE) IV PRN (14:33)
[2020-06-04] MEDS: ACETAMINOPHEN 325MG TABLET PO PRN (20:24)
[2020-06-04] MEDS ORDERED: TUBERCULIN,PURIF.PROT.DERIV. 5 TU/0.1 ML SYR ID ONE (20:30)
[2020-06-04 20:43] LABS: HEPATITIS B SURFACE ANTIGEN NEGATIVE
[2020-06-04] MEDS ORDERED: EPOETIN ALFA-EPBX 10,000 UNIT/ML VIAL SUBCUT NR (21:00)
[2020-06-04] MEDS ORDERED: VANCOMYCIN 750 MG PREMIX 150 ML IV SCH (21:00)
[2020-06-05] VITALS (45 sets, daily range): BP systolic 50–172; BP diastolic 31–91
[2020-06-05] MEDS: MORPHINE SULFATE 2 MG/ML CPJ (NOT FOR IM USE) IV PRN (00:37)
[2020-06-05] MEDS: PIPERACILLIN/TAZOBACTAM 2.25 G in DEXTROSE 5% WATER 50 ML IV SCH ×2 (04:23→21:21)
[2020-06-05] MEDS ORDERED: THROMBIN (BOVINE) 5000 UNITS/VIAL TOP ONE (06:07)
[2020-06-05] MEDS ORDERED: BACITRACIN 50,000 UNITS/VIAL ONE (06:08)
[2020-06-05 06:42] LABS: BASOPHILS % 0.4 % (0.0-2.0); EOSINOPHILS % 0.5 % (0.0-5.0); LYMPHOCYTES % 9.7 % (20.0-50.0); MEAN CORPUSCULAR HEMOGLOBIN 28.2 pg (28.0-32.0); MEAN CORPUSCULAR VOLUME 87.5 fL (80.0-94.0); MEAN PLATELET VOLUME 7.2 fl (7.4-10.4); MONOCYTES % 4.4 % (2.0-8.0); PLATELET 248 x1000/uL (130-400); RED BLOOD CELL COUNT 2.28 mill/uL (4.7-6.1)
[2020-06-05 06:49] LABS: CHLORIDE 102 mEq/L (98-107)
[2020-06-05 07:24] LABS: HEMOGLOBIN. 6.4 g/dL (14.0-18.0)
[2020-06-05 10:15] LABS: BASOPHILS % 0.8 % (0.0-2.0); EOSINOPHILS % 1.2 % (0.0-5.0); HEMATOCRIT. 23.9 % (42.0-52.0); HEMOGLOBIN. 7.9 g/dL (14.0-18.0); LYMPHOCYTES % 13.6 % (20.0-50.0); MEAN CORPUSCULAR HEMOGLOBIN 28.2 pg (28.0-32.0); MEAN CORPUSCULAR VOLUME 85.6 fL (80.0-94.0); MEAN PLATELET VOLUME 7.3 fl (7.4-10.4); MONOCYTES % 5.6 % (2.0-8.0); NEUTROPHILS % 78.8 % (40.0-76.0); PLATELET 192 x1000/uL (130-400); RED BLOOD CELL COUNT 2.79 mill/uL (4.7-6.1); RED CELL DISTRIBUTION WIDTH 16.3 % (11.6-14.6)
[2020-06-05] MEDS ORDERED: NICARDIPINE 100 MG in SODIUM CHLORIDE 0.9% 60 ML IV PRN (10:15)
[2020-06-05 10:27] LABS: INR 1.2; PROTHROMBIN TIME 12.2 sec (9.6-11.0)
[2020-06-05 15:03] LABS: BG BASE EXCESS -2.1 mmol/L (-2.0-2.0); BG CARBOXYHEMOGLOBIN 0.3 % (0.5-1.5); BG DEOXYHEMOGLOBIN 0.7 % (0.0-5.0); BG FRACTION INSPIRED OXYGEN 35; BG HCO3 ACT 20.7 mmol/L (22.0-26.0); BG METHEMOGLOBIN 0.4 % (0.0-1.5); BG OXYGEN SATURATION 99.3 % (92.0-98.5); BG OXYHEMOGLOBIN 98.6 % (94.0-97.0); BG PCO2 27.8 mmHg (35.0-45.0); BG PH 7.489 (7.350-7.450); BG PO2 211.3 mmHg (75.0-100.0); BG SAMPLE SITE ALINE; BG TOTAL HEMOGLOBIN 8.3 g/dL (12.0-18.0); BG TOTAL RESPIRATORY RATE 17 b/min; BG VENT MODE VENT - AC
[2020-06-05] MEDS ORDERED: VANCOMYCIN 750 MG PREMIX 150 ML IV SCH (16:00)
[2020-06-05] MEDS: SODIUM CHLORIDE 0.9% 1,000 ML IV SCH (17:53)
[2020-06-05] MEDS ORDERED: HEPATITIS B VIRUS VACCINE-PF 10 MCG/0.5 VIAL IM ONE (18:00)
[2020-06-05] MEDS: METOPROLOL TARTRATE 25MG TABLET PO SCH ×2 (21:00→21:22)
[2020-06-05] MEDS: MORPHINE SULFATE 4 MG/ML CPJ (NOT FOR IM USE) IV PRN (21:22)
[2020-06-05] MEDS: IRON SUCROSE COMPLEX 100 MG/5 ML ML IV SCH (23:58)
[2020-06-06] VITALS (73 sets, daily range): BP systolic 81–182; BP diastolic 41–135
[2020-06-06] MEDS: MORPHINE SULFATE 4 MG/ML CPJ (NOT FOR IM USE) IV PRN ×4 (00:07→23:06)
[2020-06-06] MEDS: PIPERACILLIN/TAZOBACTAM 2.25 G in DEXTROSE 5% WATER 50 ML IV SCH ×3 (05:40→20:31)
[2020-06-06 05:53] LABS: BASOPHILS % 0.5 % (0.0-2.0); EOSINOPHILS % 1.7 % (0.0-5.0); LYMPHOCYTES % 13.1 % (20.0-50.0); MEAN CORPUSCULAR HEMOGLOBIN 27.6 pg (28.0-32.0); MEAN CORPUSCULAR VOLUME 84.9 fL (80.0-94.0); MEAN PLATELET VOLUME 7.7 fl (7.4-10.4); MONOCYTES % 6.7 % (2.0-8.0); PLATELET 169 x1000/uL (130-400); RED CELL DISTRIBUTION WIDTH 16.4 % (11.6-14.6)
[2020-06-06 06:26] LABS: HEMOGLOBIN. 6.4 g/dL (14.0-18.0)
[2020-06-06 06:27] LABS: HEMATOCRIT. 19.5 % (42.0-52.0)
[2020-06-06] MEDS: METOPROLOL TARTRATE 25MG TABLET PO SCH ×2 (07:43→20:31)
[2020-06-06 08:08] LABS: BG CARBOXYHEMOGLOBIN 0.9 % (0.5-1.5); BG DEOXYHEMOGLOBIN 2.9 % (0.0-5.0); BG FRACTION INSPIRED OXYGEN 35; BG HCO3 ACT 20.9 mmol/L (22.0-26.0); BG METHEMOGLOBIN 0.2 % (0.0-1.5); BG OXYGEN SATURATION 97.1 % (92.0-98.5); BG PCO2 31.1 mmHg (35.0-45.0); BG PH 7.445 (7.350-7.450); BG PO2 101.6 mmHg (75.0-100.0); BG SAMPLE SITE ALINE; BG TOTAL HEMOGLOBIN 5.2 g/dL (12.0-18.0); BG VENT MODE VENT - AC
[2020-06-06] MEDS: SODIUM CHLORIDE 0.9% 1,000 ML IV SCH (10:37)
[2020-06-06] MEDS ORDERED: LIDOCAINE HCL 1% 20ML VIAL (Pyxis) INJ ONE (12:06)
[2020-06-06] MEDS ORDERED: FENTANYL CITRATE/PF 2,500 MCG in SODIUM CHLORIDE 0.9% 200 ML IV PRN (18:45)
[2020-06-06] MEDS ORDERED: MIDAZOLAM 100MG/100ML PMX 100 ML IV PRN (18:45)
[2020-06-06 21:17] LABS: BG BASE EXCESS -0.4 mmol/L (-2.0-2.0); BG CARBOXYHEMOGLOBIN 0.1 % (0.5-1.5); BG FRACTION INSPIRED OXYGEN 35; BG HCO3 ACT 23.6 mmol/L (22.0-26.0); BG METHEMOGLOBIN 0.3 % (0.0-1.5); BG OXYHEMOGLOBIN 98.6 % (94.0-97.0); BG PCO2 36.7 mmHg (35.0-45.0); BG PH 7.426 (7.350-7.450); BG PO2 171.4 mmHg (75.0-100.0); BG SAMPLE SITE ALINE; BG TOTAL HEMOGLOBIN 13.7 g/dL (12.0-18.0); BG TOTAL RESPIRATORY RATE 15 b/min; BG VENT MODE VENT - CPAP
[2020-06-06] MEDS ORDERED: RACEPINEPHRINE 2.25% 0.5ML NEB VIAL HHN PRN (21:45)
[2020-06-07] VITALS (52 sets, daily range): BP systolic 101–190; BP diastolic 51–132
[2020-06-07] MEDS: IRON SUCROSE COMPLEX 100 MG/5 ML ML IV SCH (01:04)
[2020-06-07] MEDS: PIPERACILLIN/TAZOBACTAM 2.25 G in DEXTROSE 5% WATER 50 ML IV SCH ×3 (03:33→20:30)
[2020-06-07 06:52] LABS: BASOPHILS % 0.4 % (0.0-2.0); EOSINOPHILS % 2.1 % (0.0-5.0); HEMATOCRIT. 37.1 % (42.0-52.0); HEMOGLOBIN. 12.8 g/dL (14.0-18.0); LYMPHOCYTES % 15.3 % (20.0-50.0); MEAN CORPUSCULAR HEMOGLOBIN 30.1 pg (28.0-32.0); MEAN CORPUSCULAR VOLUME 87.5 fL (80.0-94.0); MEAN PLATELET VOLUME 7.7 fl (7.4-10.4); MONOCYTES % 7.7 % (2.0-8.0); NEUTROPHILS % 74.5 % (40.0-76.0); PLATELET 162 x1000/uL (130-400); RED BLOOD CELL COUNT 4.24 mill/uL (4.7-6.1); RED CELL DISTRIBUTION WIDTH 14.9 % (11.6-14.6)
[2020-06-07 08:17] LABS: BG BASE EXCESS -4.3 mmol/L (-2.0-2.0); BG CARBOXYHEMOGLOBIN 0.3 % (0.5-1.5); BG DEOXYHEMOGLOBIN 1.7 % (0.0-5.0); BG HCO3 ACT 19.9 mmol/L (22.0-26.0); BG METHEMOGLOBIN 0.3 % (0.0-1.5); BG OXYGEN SATURATION 98.3 % (92.0-98.5); BG OXYHEMOGLOBIN 97.7 % (94.0-97.0); BG PCO2 34.4 mmHg (35.0-45.0); BG SAMPLE SITE ALINE; BG TOTAL HEMOGLOBIN 15.2 g/dL (12.0-18.0); BG VENT MODE ROOM AIR
[2020-06-07] MEDS: MORPHINE SULFATE 4 MG/ML CPJ (NOT FOR IM USE) IV PRN ×3 (08:49→22:10)
[2020-06-07] MEDS: METOPROLOL TARTRATE 25MG TABLET PO SCH ×2 (08:49→22:09)
[2020-06-07] MEDS: SODIUM CHLORIDE 0.9% 1,000 ML IV SCH (13:34)
[2020-06-07] MEDS: CLONIDINE 0.1MG TABLET PO PRN (13:34)
[2020-06-07] MEDS ORDERED: HYDRALAZINE 20MG/ML VIAL IV PRN (16:30)
[2020-06-07] MEDS: AMLODIPINE 10MG TABLET PO SCH (16:53)
[2020-06-07] MEDS: IRON SUCROSE COMPLEX 100 MG in SODIUM CHLORIDE 0.9% 100 ML IV SCH (23:28)
[2020-06-08] VITALS: BP 138/82
[2020-06-08] MEDS: IPRATROPIUM/ALBUTEROL 0.5-3(2.5)MG/3ML NEB HHN SCH ×6 (01:26→20:35)
[2020-06-08 04:00] VITALS: BP 139/83
[2020-06-08] MEDS: PIPERACILLIN/TAZOBACTAM 2.25 G in DEXTROSE 5% WATER 50 ML IV SCH ×3 (05:01→21:39)
[2020-06-08] MEDS: MORPHINE SULFATE 4 MG/ML CPJ (NOT FOR IM USE) IV PRN ×2 (06:27→21:37)
[2020-06-08 06:37] LABS: BASOPHILS % 0.5 % (0.0-2.0); EOSINOPHILS % 4.3 % (0.0-5.0); HEMATOCRIT. 38.6 % (42.0-52.0); HEMOGLOBIN. 12.9 g/dL (14.0-18.0); LYMPHOCYTES % 17.1 % (20.0-50.0); MEAN CORPUSCULAR HEMOGLOBIN 29.9 pg (28.0-32.0); MEAN CORPUSCULAR VOLUME 89.2 fL (80.0-94.0); MEAN PLATELET VOLUME 7.5 fl (7.4-10.4); MONOCYTES % 5.4 % (2.0-8.0); NEUTROPHILS % 72.7 % (40.0-76.0); PLATELET 169 x1000/uL (130-400); RED BLOOD CELL COUNT 4.32 mill/uL (4.7-6.1); RED CELL DISTRIBUTION WIDTH 15.2 % (11.6-14.6)
[2020-06-08 08:00] VITALS: BP 133/70
[2020-06-08] MEDS: SODIUM CHLORIDE 0.9% 1,000 ML IV SCH (10:15)
[2020-06-08 12:00] VITALS: BP 126/73
[2020-06-08] MEDS: METOPROLOL TARTRATE 25MG TABLET PO SCH ×2 (14:52→21:36)
[2020-06-08] MEDS: AMLODIPINE 10MG TABLET PO SCH (14:52)
[2020-06-08 16:00] VITALS: BP 128/73
[2020-06-08 20:00] VITALS: BP 124/67
[2020-06-08] MEDS: IRON SUCROSE COMPLEX 100 MG in SODIUM CHLORIDE 0.9% 100 ML IV SCH (23:01)
[2020-06-09] VITALS: BP 129/78
[2020-06-09] MEDS: IPRATROPIUM/ALBUTEROL 0.5-3(2.5)MG/3ML NEB HHN SCH ×5 (00:25→20:59)
[2020-06-09 04:00] VITALS: BP 128/75
[2020-06-09 08:00] VITALS: BP 138/86
[2020-06-09] MEDS: SODIUM CHLORIDE 0.9% 1,000 ML IV SCH (10:15)
[2020-06-09] MEDS: AMLODIPINE 10MG TABLET PO SCH (11:38)
[2020-06-09] MEDS: METOPROLOL TARTRATE 25MG TABLET PO SCH ×2 (11:38→22:11)
[2020-06-09 12:00] VITALS: BP 137/91
[2020-06-09 16:00] VITALS: BP 145/88
[2020-06-09] MEDS: DICLOFENAC SODIUM 0.1% OPHTH 2.5 ML BOTTLE BOTHEYE SCH (17:17)
[2020-06-09] MEDS: FERROUS SULFATE 325MG TABLET PO SCH (18:39)
[2020-06-09 20:00] VITALS: BP 130/77
[2020-06-10] VITALS: BP 131/83
[2020-06-10] MEDS: IPRATROPIUM/ALBUTEROL 0.5-3(2.5)MG/3ML NEB HHN SCH ×5 (00:43→20:56)
[2020-06-10] MEDS: MORPHINE SULFATE 4 MG/ML CPJ (NOT FOR IM USE) IV PRN ×3 (00:59→18:28)
[2020-06-10 04:00] VITALS: BP 130/76
[2020-06-10 08:00] VITALS: BP 134/74
[2020-06-10] MEDS: CALCITRIOL 0.25MCG CAPSULE PO SCH ×2 (09:00→14:41)
[2020-06-10 10:17] LABS: BASOPHILS % 0.8 % (0.0-2.0); EOSINOPHILS % 5.4 % (0.0-5.0); HEMATOCRIT. 39.9 % (42.0-52.0); HEMOGLOBIN. 13.4 g/dL (14.0-18.0); LYMPHOCYTES % 20.5 % (20.0-50.0); MEAN CORPUSCULAR HEMOGLOBIN 29.7 pg (28.0-32.0); MEAN CORPUSCULAR VOLUME 88.8 fL (80.0-94.0); MEAN PLATELET VOLUME 6.7 fl (7.4-10.4); MONOCYTES % 6.3 % (2.0-8.0); PLATELET 171 x1000/uL (130-400); RED BLOOD CELL COUNT 4.49 mill/uL (4.7-6.1); RED CELL DISTRIBUTION WIDTH 14.9 % (11.6-14.6)
[2020-06-10] MEDS: DICLOFENAC SODIUM 0.1% OPHTH 2.5 ML BOTTLE BOTHEYE SCH (11:26)
[2020-06-10] MEDS: FERROUS SULFATE 325MG TABLET PO SCH ×3 (11:27→18:28)
[2020-06-10] MEDS: METOPROLOL TARTRATE 25MG TABLET PO SCH ×2 (11:28→21:09)
[2020-06-10] MEDS: AMLODIPINE 10MG TABLET PO SCH (11:28)
[2020-06-10] MEDS: ACETAMINOPHEN 325MG TABLET PO PRN (11:29)
[2020-06-10] MEDS: CEFEPIME 1,000 MG in DEXTROSE 5% WATER 50 ML IV SCH (16:00)
[2020-06-10] MEDS: SODIUM CHLORIDE 0.9% 1,000 ML IV SCH (18:27)
[2020-06-10 20:00] VITALS: BP 138/95
[2020-06-10 20:13] VITALS: BP 137/78
[2020-06-11] MEDS: MORPHINE SULFATE 4 MG/ML CPJ (NOT FOR IM USE) IV PRN ×6 (00:29→21:00)
[2020-06-11] MEDS: IPRATROPIUM/ALBUTEROL 0.5-3(2.5)MG/3ML NEB HHN SCH ×6 (00:58→20:15)
[2020-06-11 04:00] VITALS: BP 145/86
[2020-06-11 08:00] VITALS: BP 132/83
[2020-06-11] MEDS: METOPROLOL TARTRATE 25MG TABLET PO SCH ×2 (09:06→20:59)
[2020-06-11] MEDS: DICLOFENAC SODIUM 0.1% OPHTH 2.5 ML BOTTLE BOTHEYE SCH (09:06)
[2020-06-11] MEDS: FERROUS SULFATE 325MG TABLET PO SCH ×3 (09:06→18:30)
[2020-06-11] MEDS: AMLODIPINE 10MG TABLET PO SCH (09:06)
[2020-06-11] MEDS: SODIUM CHLORIDE 0.9% 1,000 ML IV SCH (12:47)
[2020-06-11] MEDS: CEFEPIME 1,000 MG in DEXTROSE 5% WATER 50 ML IV SCH (15:17)
[2020-06-11 20:00] VITALS: BP 149/82
[2020-06-12] VITALS: BP 146/84
[2020-06-12] MEDS: IPRATROPIUM/ALBUTEROL 0.5-3(2.5)MG/3ML NEB HHN SCH ×3 (00:24→21:04)
[2020-06-12] MEDS: MORPHINE SULFATE 4 MG/ML CPJ (NOT FOR IM USE) IV PRN ×4 (01:26→16:30)
[2020-06-12 04:00] VITALS: BP 137/86
[2020-06-12 08:00] VITALS: BP 143/88
[2020-06-12] MEDS: FERROUS SULFATE 325MG TABLET PO SCH ×3 (08:26→16:31)
[2020-06-12] MEDS: CALCITRIOL 0.25MCG CAPSULE PO SCH (08:26)
[2020-06-12] MEDS: AMLODIPINE 10MG TABLET PO SCH (08:27)
[2020-06-12] MEDS: DICLOFENAC SODIUM 0.1% OPHTH 2.5 ML BOTTLE BOTHEYE SCH (08:27)
[2020-06-12] MEDS: METOPROLOL TARTRATE 25MG TABLET PO SCH ×2 (08:27→22:30)
[2020-06-12] MEDS: LACTULOSE 20G/30ML UDC PO SCH ×3 (09:30→16:31)
[2020-06-12] MEDS: DOCUSATE SODIUM 100MG CAPSULE PO SCH ×2 (09:30→16:29)
[2020-06-12] MEDS: SODIUM CHLORIDE 0.9% 1,000 ML IV SCH (10:15)
[2020-06-12 12:00] VITALS: BP 132/87
[2020-06-12 16:00] VITALS: BP 142/86
[2020-06-12] MEDS: CEFEPIME 1,000 MG in DEXTROSE 5% WATER 50 ML IV SCH (16:24)
[2020-06-12 20:00] VITALS: BP 148/85
[2020-06-12] MEDS: POLYETHYLENE GLYCOL 3350 (17GM) 1 DOSE PACK PO SCH (21:00)
[2020-06-12] MEDS: ACETAMINOPHEN 325MG TABLET PO PRN (22:30)
[2020-06-13] VITALS: BP 144/85
[2020-06-13 04:00] VITALS: BP 135/84
[2020-06-13] MEDS: IPRATROPIUM/ALBUTEROL 0.5-3(2.5)MG/3ML NEB HHN SCH ×4 (05:00→14:24)
[2020-06-13 07:59] LABS: BASOPHILS % 1.1 % (0.0-2.0); EOSINOPHILS % 5.4 % (0.0-5.0); HEMOGLOBIN. 12.9 g/dL (14.0-18.0); LYMPHOCYTES % 18.1 % (20.0-50.0); MEAN CORPUSCULAR HEMOGLOBIN 30.1 pg (28.0-32.0); MEAN CORPUSCULAR VOLUME 88.7 fL (80.0-94.0); MEAN PLATELET VOLUME 7.4 fl (7.4-10.4); MONOCYTES % 5.7 % (2.0-8.0); NEUTROPHILS % 69.7 % (40.0-76.0); PLATELET 181 x1000/uL (130-400); RED BLOOD CELL COUNT 4.28 mill/uL (4.7-6.1)
[2020-06-13 08:00] VITALS: BP 134/84
[2020-06-13] MEDS: DICLOFENAC SODIUM 0.1% OPHTH 2.5 ML BOTTLE BOTHEYE SCH (08:24)
[2020-06-13] MEDS: CALCITRIOL 0.25MCG CAPSULE PO SCH (08:24)
[2020-06-13] MEDS: METOPROLOL TARTRATE 25MG TABLET PO SCH ×2 (08:24→21:48)
[2020-06-13] MEDS: AMLODIPINE 10MG TABLET PO SCH (08:24)
[2020-06-13] MEDS: FERROUS SULFATE 325MG TABLET PO SCH ×3 (08:24→17:30)
[2020-06-13] MEDS: DOCUSATE SODIUM 100MG CAPSULE PO SCH ×2 (09:00→16:11)
[2020-06-13] MEDS: DEXT 5%/0.9% NACL 1,000 ML IV SCH (10:44)
[2020-06-13 12:00] VITALS: BP 123/80
[2020-06-13] MEDS: CEFEPIME 1,000 MG in DEXTROSE 5% WATER 50 ML IV SCH (15:27)
[2020-06-13] MEDS: HYDROCODONE/ACETAMINOPHEN 5/325MG TABLET PO PRN (15:34)
[2020-06-13 15:59] VITALS: BP 131/77
[2020-06-13 20:00] VITALS: BP 133/76
[2020-06-13] MEDS: POLYETHYLENE GLYCOL 3350 (17GM) 1 DOSE PACK PO SCH (21:00)
[2020-06-14] VITALS: BP 152/66
[2020-06-14 04:00] VITALS: BP 139/70
[2020-06-14 06:28] LABS: BASOPHILS % 0.8 % (0.0-2.0); EOSINOPHILS % 3.7 % (0.0-5.0); HEMOGLOBIN. 12.7 g/dL (14.0-18.0); LYMPHOCYTES % 14.6 % (20.0-50.0); MEAN CORPUSCULAR HEMOGLOBIN 30.5 pg (28.0-32.0); MEAN CORPUSCULAR VOLUME 88.9 fL (80.0-94.0); MEAN PLATELET VOLUME 7.2 fl (7.4-10.4); MONOCYTES % 6.4 % (2.0-8.0); NEUTROPHILS % 74.5 % (40.0-76.0); PLATELET 202 x1000/uL (130-400); RED BLOOD CELL COUNT 4.16 mill/uL (4.7-6.1); RED CELL DISTRIBUTION WIDTH 15.4 % (11.6-14.6)
[2020-06-14] MEDS: IPRATROPIUM/ALBUTEROL 0.5-3(2.5)MG/3ML NEB HHN SCH ×4 (07:54→20:42)
[2020-06-14 08:00] VITALS: BP 139/70
[2020-06-14] MEDS: DEXT 5%/0.9% NACL 1,000 ML IV SCH (09:30)
[2020-06-14] MEDS: HYDROCODONE/ACETAMINOPHEN 5/325MG TABLET PO PRN (09:35)
[2020-06-14] MEDS: FERROUS SULFATE 325MG TABLET PO SCH ×3 (09:36→17:30)
[2020-06-14] MEDS: AMLODIPINE 10MG TABLET PO SCH (09:36)
[2020-06-14] MEDS: CALCITRIOL 0.25MCG CAPSULE PO SCH (09:36)
[2020-06-14] MEDS: METOPROLOL TARTRATE 25MG TABLET PO SCH ×2 (09:36→21:00)
[2020-06-14] MEDS: DOCUSATE SODIUM 100MG CAPSULE PO SCH ×2 (09:36→17:30)
[2020-06-14] MEDS ORDERED: POLYETHYLENE GLYCOL 3350 (17GM) 1 DOSE PACK PO PRN (11:00)
[2020-06-14] MEDS ORDERED: OXYCODONE HCL 5MG TABLET PO PRN (11:45)
[2020-06-14 12:00] VITALS: BP 158/77
[2020-06-14] MEDS: OXYCODONE HCL 5MG TABLET PO SCH ×2 (13:27→18:57)
[2020-06-14] MEDS: DICLOFENAC SODIUM 0.1% OPHTH 2.5 ML BOTTLE BOTHEYE SCH (15:19)
[2020-06-14 16:00] VITALS: BP 116/78
[2020-06-14] MEDS: CEFEPIME 1,000 MG in DEXTROSE 5% WATER 50 ML IV SCH ×2 (16:00→18:58)
[2020-06-14 20:00] VITALS: BP 128/71
[2020-06-14] MEDS: MORPHINE SULFATE 4 MG/ML CPJ (NOT FOR IM USE) IV PRN (21:54)
[2020-06-15] VITALS: BP 123/68
[2020-06-15] MEDS: OXYCODONE HCL 5MG TABLET PO SCH ×4 (01:09→18:32)
[2020-06-15] MEDS: IPRATROPIUM/ALBUTEROL 0.5-3(2.5)MG/3ML NEB HHN SCH ×6 (02:41→21:35)
[2020-06-15 04:00] VITALS: BP 120/67
[2020-06-15 08:00] VITALS: BP 142/80
[2020-06-15] MEDS: DEXT 5%/0.9% NACL 1,000 ML IV SCH (09:30)
[2020-06-15] MEDS: AMLODIPINE 10MG TABLET PO SCH (09:53)
[2020-06-15] MEDS: DOCUSATE SODIUM 100MG CAPSULE PO SCH ×2 (09:53→17:02)
[2020-06-15] MEDS: CALCITRIOL 0.25MCG CAPSULE PO SCH (09:53)
[2020-06-15] MEDS: FERROUS SULFATE 325MG TABLET PO SCH ×3 (09:53→17:02)
[2020-06-15] MEDS: METOPROLOL TARTRATE 25MG TABLET PO SCH ×2 (09:54→21:38)
[2020-06-15 12:00] VITALS: BP 125/82
[2020-06-15] MEDS: DICLOFENAC SODIUM 0.1% OPHTH 2.5 ML BOTTLE BOTHEYE SCH (15:00)
[2020-06-15 16:00] VITALS: BP 128/75
[2020-06-15] MEDS: CEFEPIME 1,000 MG in DEXTROSE 5% WATER 50 ML IV SCH (17:03)
[2020-06-15 20:00] VITALS: BP 132/76
[2020-06-16] VITALS: BP 112/65
[2020-06-16] MEDS: OXYCODONE HCL 5MG TABLET PO SCH ×2 (00:16→05:48)
[2020-06-16] MEDS: IPRATROPIUM/ALBUTEROL 0.5-3(2.5)MG/3ML NEB HHN SCH ×6 (01:32→20:00)
[2020-06-16 04:00] VITALS: BP 123/69
[2020-06-16 08:00] VITALS: BP 136/82
[2020-06-16] MEDS: DEXT 5%/0.9% NACL 1,000 ML IV SCH (09:30)
[2020-06-16] MEDS: CALCITRIOL 0.25MCG CAPSULE PO SCH (10:26)
[2020-06-16] MEDS: DOCUSATE SODIUM 100MG CAPSULE PO SCH ×2 (10:26→18:57)
[2020-06-16] MEDS: AMLODIPINE 10MG TABLET PO SCH (10:27)
[2020-06-16] MEDS: METOPROLOL TARTRATE 25MG TABLET PO SCH ×2 (10:28→21:00)
[2020-06-16] MEDS: FERROUS SULFATE 325MG TABLET PO SCH ×3 (10:29→18:57)
[2020-06-16 12:00] VITALS: BP 147/81
[2020-06-16] MEDS: DICLOFENAC SODIUM 0.1% OPHTH 2.5 ML BOTTLE BOTHEYE SCH (15:00)
[2020-06-16] MEDS: CEFEPIME 1,000 MG in DEXTROSE 5% WATER 50 ML IV SCH (16:25)
[2020-06-16 20:00] VITALS: BP 136/83
[2020-06-16] MEDS: BLOOD SUGAR DIAGNOSTIC STRIP TEST SCH (21:17)
[2020-06-17] VITALS: BP 128/71
[2020-06-17] MEDS: OXYCODONE HCL 5MG TABLET PO SCH ×3 (00:15→12:15)
[2020-06-17] MEDS: IPRATROPIUM/ALBUTEROL 0.5-3(2.5)MG/3ML NEB HHN SCH ×6 (01:51→20:00)
[2020-06-17 04:00] VITALS: BP 135/84
[2020-06-17] MEDS: BLOOD SUGAR DIAGNOSTIC STRIP TEST SCH ×4 (06:32→21:00)
[2020-06-17 06:55] LABS: BASOPHILS % 0.7 % (0.0-2.0); EOSINOPHILS % 3.4 % (0.0-5.0); HEMATOCRIT. 35.6 % (42.0-52.0); LYMPHOCYTES % 18.5 % (20.0-50.0); MEAN CORPUSCULAR HEMOGLOBIN 29.8 pg (28.0-32.0); MEAN CORPUSCULAR VOLUME 88.4 fL (80.0-94.0); MEAN PLATELET VOLUME 7.1 fl (7.4-10.4); NEUTROPHILS % 71.4 % (40.0-76.0); PLATELET 178 x1000/uL (130-400); RED BLOOD CELL COUNT 4.02 mill/uL (4.7-6.1); RED CELL DISTRIBUTION WIDTH 15.5 % (11.6-14.6)
[2020-06-17 08:00] VITALS: BP 133/75
[2020-06-17] MEDS: DOCUSATE SODIUM 100MG CAPSULE PO SCH ×2 (09:23→16:14)
[2020-06-17] MEDS: METOPROLOL TARTRATE 25MG TABLET PO SCH ×2 (09:23→22:21)
[2020-06-17] MEDS: AMLODIPINE 10MG TABLET PO SCH (09:23)
[2020-06-17] MEDS: FERROUS SULFATE 325MG TABLET PO SCH ×3 (09:23→17:53)
[2020-06-17] MEDS: CALCITRIOL 0.25MCG CAPSULE PO SCH (09:23)
[2020-06-17] MEDS: DEXT 5%/0.9% NACL 1,000 ML IV SCH (09:24)
[2020-06-17] MEDS: HYDROCODONE/ACETAMINOPHEN 5/325MG TABLET PO PRN (09:35)
[2020-06-17 12:00] VITALS: BP 147/81
[2020-06-17] MEDS: DICLOFENAC SODIUM 0.1% OPHTH 2.5 ML BOTTLE BOTHEYE SCH (14:50)
[2020-06-17 16:00] VITALS: BP 148/73
[2020-06-17] MEDS: CEFEPIME 1,000 MG in DEXTROSE 5% WATER 50 ML IV SCH (16:14)
[2020-06-17 20:00] VITALS: BP 148/82
[2020-06-18] VITALS (7 sets, daily range): BP systolic 130–154; BP diastolic 72–93
[2020-06-18] MEDS: IPRATROPIUM/ALBUTEROL 0.5-3(2.5)MG/3ML NEB HHN SCH ×4 (04:00→19:59)
[2020-06-18 06:39] LABS: EOSINOPHILS % 3.7 % (0.0-5.0); HEMATOCRIT. 36.6 % (42.0-52.0); HEMOGLOBIN. 12.2 g/dL (14.0-18.0); LYMPHOCYTES % 27.1 % (20.0-50.0); MEAN CORPUSCULAR HEMOGLOBIN 29.7 pg (28.0-32.0); MEAN CORPUSCULAR VOLUME 89.1 fL (80.0-94.0); MEAN PLATELET VOLUME 7.4 fl (7.4-10.4); MONOCYTES % 7.2 % (2.0-8.0); PLATELET 214 x1000/uL (130-400); RED BLOOD CELL COUNT 4.11 mill/uL (4.7-6.1); RED CELL DISTRIBUTION WIDTH 15.4 % (11.6-14.6)
[2020-06-18] MEDS: BLOOD SUGAR DIAGNOSTIC STRIP TEST SCH ×3 (07:41→17:30)
[2020-06-18] MEDS: FERROUS SULFATE 325MG TABLET PO SCH ×3 (07:50→17:48)
[2020-06-18] MEDS: ONDANSETRON HCL 4MG/2ML INJ IV PRN (08:30)
[2020-06-18] MEDS: DOCUSATE SODIUM 100MG CAPSULE PO SCH ×2 (09:16→17:28)
[2020-06-18] MEDS: AMLODIPINE 10MG TABLET PO SCH (09:16)
[2020-06-18] MEDS: METOPROLOL TARTRATE 25MG TABLET PO SCH ×2 (09:16→21:00)
[2020-06-18] MEDS: CALCITRIOL 0.25MCG CAPSULE PO SCH (09:17)
[2020-06-18] MEDS: HYDROCODONE/ACETAMINOPHEN 5/325MG TABLET PO PRN ×2 (09:18→15:36)
[2020-06-18] MEDS: OXYCODONE HCL 5MG TABLET PO SCH ×2 (12:15→17:49)
[2020-06-18] MEDS: CEFEPIME 1,000 MG in DEXTROSE 5% WATER 50 ML IV SCH (15:35)
[2020-06-18] MEDS: DEXT 5%/0.9% NACL 1,000 ML IV SCH (15:35)
[2020-06-18] MEDS: DICLOFENAC SODIUM 0.1% OPHTH 2.5 ML BOTTLE BOTHEYE SCH (15:50)
[2020-06-18] MEDS: MEGESTROL ACETATE 40MG TABLET PO SCH (17:28)
[2020-06-19] MEDS: IPRATROPIUM/ALBUTEROL 0.5-3(2.5)MG/3ML NEB HHN SCH ×6 (01:18→21:04)
[2020-06-19] MEDS: BLOOD SUGAR DIAGNOSTIC STRIP TEST SCH ×4 (07:20→20:48)
[2020-06-19 07:37] LABS: BASOPHILS % 1.2 % (0.0-2.0); EOSINOPHILS % 3.5 % (0.0-5.0); HEMATOCRIT. 33.2 % (42.0-52.0); HEMOGLOBIN. 11.1 g/dL (14.0-18.0); LYMPHOCYTES % 30.5 % (20.0-50.0); MEAN CORPUSCULAR HEMOGLOBIN 29.5 pg (28.0-32.0); MEAN CORPUSCULAR VOLUME 88.4 fL (80.0-94.0); MONOCYTES % 6.9 % (2.0-8.0); NEUTROPHILS % 57.9 % (40.0-76.0); PLATELET 181 x1000/uL (130-400); RED BLOOD CELL COUNT 3.75 mill/uL (4.7-6.1); RED CELL DISTRIBUTION WIDTH 15.3 % (11.6-14.6)
[2020-06-19 08:00] VITALS: BP 95/65
[2020-06-19] MEDS: FERROUS SULFATE 325MG TABLET PO SCH ×3 (08:48→17:40)
[2020-06-19] MEDS: DOCUSATE SODIUM 100MG CAPSULE PO SCH ×2 (08:48→17:40)
[2020-06-19] MEDS: MEGESTROL ACETATE 40MG TABLET PO SCH ×2 (08:48→17:40)
[2020-06-19] MEDS: CALCITRIOL 0.25MCG CAPSULE PO SCH (08:48)
[2020-06-19] MEDS: ONDANSETRON HCL 4MG/2ML INJ IV PRN (08:51)
[2020-06-19] MEDS: DEXT 5%/0.9% NACL 1,000 ML IV SCH (08:51)
[2020-06-19] MEDS: AMLODIPINE 10MG TABLET PO SCH (08:52)
[2020-06-19] MEDS: METOPROLOL TARTRATE 25MG TABLET PO SCH ×2 (08:52→20:47)
[2020-06-19 12:00] VITALS: BP 131/70
[2020-06-19] MEDS: DICLOFENAC SODIUM 0.1% OPHTH 2.5 ML BOTTLE BOTHEYE SCH (15:46)
[2020-06-19] MEDS: CEFEPIME 1,000 MG in DEXTROSE 5% WATER 50 ML IV SCH (15:46)
[2020-06-19 16:00] VITALS: BP 138/71
[2020-06-19] MEDS: ACETAMINOPHEN 325MG TABLET PO PRN (17:40)
[2020-06-19 20:00] VITALS: BP 148/89
[2020-06-20] VITALS: BP 151/78
[2020-06-20] MEDS: IPRATROPIUM/ALBUTEROL 0.5-3(2.5)MG/3ML NEB HHN SCH ×5 (01:17→20:58)
[2020-06-20 06:25] LABS: EOSINOPHILS % 2.8 % (0.0-5.0); HEMATOCRIT. 35.2 % (42.0-52.0); HEMOGLOBIN. 11.6 g/dL (14.0-18.0); MEAN CORPUSCULAR HEMOGLOBIN 29.1 pg (28.0-32.0); MEAN CORPUSCULAR VOLUME 88.5 fL (80.0-94.0); MEAN PLATELET VOLUME 7.2 fl (7.4-10.4); MONOCYTES % 6.5 % (2.0-8.0); NEUTROPHILS % 66.7 % (40.0-76.0); PLATELET 207 x1000/uL (130-400); RED BLOOD CELL COUNT 3.97 mill/uL (4.7-6.1); RED CELL DISTRIBUTION WIDTH 15.4 % (11.6-14.6)
[2020-06-20] MEDS: BLOOD SUGAR DIAGNOSTIC STRIP TEST SCH ×4 (06:46→21:00)
[2020-06-20 06:50] LABS: FOLIC ACID (FOLATE) SERUM 3.6 ng/mL (>5.38)
[2020-06-20 08:00] VITALS: BP 145/80
[2020-06-20] MEDS: DOCUSATE SODIUM 100MG CAPSULE PO SCH ×2 (08:28→17:28)
[2020-06-20] MEDS: MEGESTROL ACETATE 40MG TABLET PO SCH ×2 (08:28→17:28)
[2020-06-20] MEDS: FERROUS SULFATE 325MG TABLET PO SCH ×2 (08:28→17:28)
[2020-06-20] MEDS: METOPROLOL TARTRATE 25MG TABLET PO SCH ×2 (08:29→22:03)
[2020-06-20] MEDS: AMLODIPINE 10MG TABLET PO SCH (08:30)
[2020-06-20] MEDS: CALCITRIOL 0.25MCG CAPSULE PO SCH (08:30)
[2020-06-20] MEDS: ACETAMINOPHEN 325MG TABLET PO PRN ×2 (08:30→22:05)
[2020-06-20] MEDS: DEXT 5%/0.9% NACL 1,000 ML IV SCH (08:36)
[2020-06-20 12:00] VITALS: BP 144/82
[2020-06-20] MEDS: FOLIC ACID 1MG TABLET PO SCH (12:10)
[2020-06-20] MEDS: HYDROCODONE/ACETAMINOPHEN 5/325MG TABLET PO PRN ×2 (12:11→23:59)
[2020-06-20 16:00] VITALS: BP 155/86
[2020-06-20] MEDS: CEFEPIME 1,000 MG in DEXTROSE 5% WATER 50 ML IV SCH (16:24)
[2020-06-20] MEDS: DICLOFENAC SODIUM 0.1% OPHTH 2.5 ML BOTTLE BOTHEYE SCH (16:24)
[2020-06-20 20:00] VITALS: BP 153/85
[2020-06-21] VITALS: BP 159/85
[2020-06-21] MEDS: IPRATROPIUM/ALBUTEROL 0.5-3(2.5)MG/3ML NEB HHN SCH ×4 (01:04→22:33)
[2020-06-21 04:00] VITALS: BP 147/84
[2020-06-21] MEDS: BLOOD SUGAR DIAGNOSTIC STRIP TEST SCH ×4 (07:19→21:00)
[2020-06-21 08:00] VITALS: BP 160/88
[2020-06-21] MEDS: METOPROLOL TARTRATE 25MG TABLET PO SCH ×2 (09:00→20:52)
[2020-06-21] MEDS: AMLODIPINE 10MG TABLET PO SCH (09:00)
[2020-06-21] MEDS: FERROUS SULFATE 325MG TABLET PO SCH ×3 (09:29→18:48)
[2020-06-21] MEDS: MEGESTROL ACETATE 40MG TABLET PO SCH ×2 (09:29→16:38)
[2020-06-21] MEDS: FOLIC ACID 1MG TABLET PO SCH (09:29)
[2020-06-21] MEDS: DOCUSATE SODIUM 100MG CAPSULE PO SCH ×2 (09:29→16:38)
[2020-06-21] MEDS: CALCITRIOL 0.25MCG CAPSULE PO SCH (09:30)
[2020-06-21] MEDS: DEXT 5%/0.9% NACL 1,000 ML IV SCH (11:30)
[2020-06-21] MEDS: DICLOFENAC SODIUM 0.1% OPHTH 2.5 ML BOTTLE BOTHEYE SCH (16:38)
[2020-06-21] MEDS: CEFEPIME 1,000 MG in DEXTROSE 5% WATER 50 ML IV SCH (16:38)
[2020-06-21 20:00] VITALS: BP_SYST 104; BP_SYST 191; BP_DIAS 67; BP_DIAS 87
[2020-06-21] MEDS: CLONIDINE 0.1MG TABLET PO PRN (20:52)
[2020-06-21] MEDS: HYDROCODONE/ACETAMINOPHEN 5/325MG TABLET PO PRN (20:53)
[2020-06-22] VITALS (7 sets, daily range): BP systolic 108–168; BP diastolic 72–85
[2020-06-22] MEDS: IPRATROPIUM/ALBUTEROL 0.5-3(2.5)MG/3ML NEB HHN SCH ×4 (00:30→20:30)
[2020-06-22] MEDS: HYDROCODONE/ACETAMINOPHEN 5/325MG TABLET PO PRN ×2 (02:46→14:53)
[2020-06-22] MEDS: HYDRALAZINE 10 MG in SODIUM CHLORIDE 0.9% 49.5 ML IV PRN (02:47)
[2020-06-22] MEDS: BLOOD SUGAR DIAGNOSTIC STRIP TEST SCH ×4 (07:36→21:00)
[2020-06-22] MEDS: MEGESTROL ACETATE 40MG TABLET PO SCH ×3 (08:24→17:08)
[2020-06-22] MEDS: FERROUS SULFATE 325MG TABLET PO SCH ×4 (08:24→17:21)
[2020-06-22] MEDS: FOLIC ACID 1MG TABLET PO SCH (08:24)
[2020-06-22] MEDS: DOCUSATE SODIUM 100MG CAPSULE PO SCH ×3 (08:24→17:08)
[2020-06-22] MEDS: CALCITRIOL 0.25MCG CAPSULE PO SCH (08:24)
[2020-06-22] MEDS: AMLODIPINE 10MG TABLET PO SCH (08:28)
[2020-06-22] MEDS: METOPROLOL TARTRATE 25MG TABLET PO SCH ×2 (08:28→20:31)
[2020-06-22] MEDS: ONDANSETRON HCL 4MG/2ML INJ IV PRN ×2 (12:06→20:29)
[2020-06-22] MEDS ORDERED: LACTULOSE 20G/30ML UDC PO SCH (12:30)
[2020-06-22] MEDS ORDERED: LACTULOSE 20G/30ML UDC PO NR (12:30)
[2020-06-22] MEDS ORDERED: LACTULOSE 20G/30ML UDC PO PRN (12:45)
[2020-06-22] MEDS: DEXT 5%/0.9% NACL 1,000 ML IV SCH (13:09)
[2020-06-22] MEDS: CEFEPIME 1,000 MG in DEXTROSE 5% WATER 50 ML IV SCH (17:04)
[2020-06-22] MEDS: DICLOFENAC SODIUM 0.1% OPHTH 2.5 ML BOTTLE BOTHEYE SCH (17:05)
[2020-06-22] MEDS: CLONIDINE 0.1MG TABLET PO PRN (20:30)
[2020-06-23] VITALS: BP 150/80
[2020-06-23] MEDS: ONDANSETRON HCL 4MG/2ML INJ IV PRN ×3 (03:24→20:29)
[2020-06-23 04:00] VITALS: BP 135/70
[2020-06-23] MEDS: BLOOD SUGAR DIAGNOSTIC STRIP TEST SCH ×4 (07:20→20:41)
[2020-06-23] MEDS: METOPROLOL TARTRATE 25MG TABLET PO SCH ×2 (09:00→20:47)
[2020-06-23] MEDS: AMLODIPINE 10MG TABLET PO SCH (09:00)
[2020-06-23] MEDS: DOCUSATE SODIUM 100MG CAPSULE PO SCH ×2 (09:00→17:00)
[2020-06-23] MEDS: IPRATROPIUM/ALBUTEROL 0.5-3(2.5)MG/3ML NEB HHN SCH ×3 (09:18→20:14)
[2020-06-23] MEDS: FOLIC ACID 1MG TABLET PO SCH (10:09)
[2020-06-23] MEDS: CALCITRIOL 0.25MCG CAPSULE PO SCH (10:09)
[2020-06-23 12:00] VITALS: BP 111/74
[2020-06-23] MEDS: MEGESTROL ACETATE 40MG TABLET PO SCH ×2 (13:10→18:34)
[2020-06-23] MEDS: FERROUS SULFATE 325MG TABLET PO SCH ×2 (13:10→18:34)
[2020-06-23] MEDS: DICLOFENAC SODIUM 0.1% OPHTH 2.5 ML BOTTLE BOTHEYE SCH (15:00)
[2020-06-23] MEDS: CEFEPIME 1,000 MG in DEXTROSE 5% WATER 50 ML IV SCH (15:33)
[2020-06-23] MEDS: DEXT 5%/0.9% NACL 1,000 ML IV SCH (15:43)
[2020-06-23] MEDS: HYDROCODONE/ACETAMINOPHEN 5/325MG TABLET PO PRN ×2 (15:43→20:29)
[2020-06-23 16:00] VITALS: BP 138/65
[2020-06-23 20:00] VITALS: BP 137/73
[2020-06-24] VITALS: BP 169/88
[2020-06-24] MEDS: IPRATROPIUM/ALBUTEROL 0.5-3(2.5)MG/3ML NEB HHN SCH ×6 (00:02→21:30)
[2020-06-24] MEDS: HYDROCODONE/ACETAMINOPHEN 5/325MG TABLET PO PRN ×4 (00:34→23:43)
[2020-06-24] MEDS: CLONIDINE 0.1MG TABLET PO PRN (01:53)
[2020-06-24 04:00] VITALS: BP 142/76
[2020-06-24] MEDS: BLOOD SUGAR DIAGNOSTIC STRIP TEST SCH ×3 (07:20→20:41)
[2020-06-24 08:00] VITALS: BP 147/69
[2020-06-24] MEDS: FERROUS SULFATE 325MG TABLET PO SCH ×3 (09:50→17:30)
[2020-06-24] MEDS: DOCUSATE SODIUM 100MG CAPSULE PO SCH ×2 (09:50→17:30)
[2020-06-24] MEDS: FOLIC ACID 1MG TABLET PO SCH (09:50)
[2020-06-24] MEDS: CALCITRIOL 0.25MCG CAPSULE PO SCH (09:50)
[2020-06-24] MEDS: MEGESTROL ACETATE 40MG TABLET PO SCH ×2 (09:51→17:30)
[2020-06-24] MEDS: METOPROLOL TARTRATE 25MG TABLET PO SCH ×2 (09:51→20:50)
[2020-06-24] MEDS: AMLODIPINE 10MG TABLET PO SCH (09:51)
[2020-06-24] MEDS: DEXT 5%/0.9% NACL 1,000 ML IV SCH (09:55)
[2020-06-24 16:00] VITALS: BP 141/71
[2020-06-24] MEDS: DICLOFENAC SODIUM 0.1% OPHTH 2.5 ML BOTTLE BOTHEYE SCH (16:06)
[2020-06-24] MEDS: CEFEPIME 1,000 MG in DEXTROSE 5% WATER 50 ML IV SCH (16:07)
[2020-06-24 19:06] LABS: 25-HYDROXY VITAMIN D3 31 ng/mL (.)
[2020-06-24 20:00] VITALS: BP 158/83
[2020-06-24] MEDS: ONDANSETRON HCL 4MG/2ML INJ IV PRN (20:59)
[2020-06-25] VITALS: BP 152/81
[2020-06-25] MEDS: IPRATROPIUM/ALBUTEROL 0.5-3(2.5)MG/3ML NEB HHN SCH ×4 (01:01→12:00)
[2020-06-25] MEDS: CLONIDINE 0.1MG TABLET PO PRN (03:52)
[2020-06-25 04:00] VITALS: BP 163/83
[2020-06-25] MEDS: BLOOD SUGAR DIAGNOSTIC STRIP TEST SCH ×3 (07:15→20:50)
[2020-06-25] MEDS: FERROUS SULFATE 325MG TABLET PO SCH ×2 (10:29→16:40)
[2020-06-25] MEDS: FOLIC ACID 1MG TABLET PO SCH (10:30)
[2020-06-25] MEDS: DOCUSATE SODIUM 100MG CAPSULE PO SCH ×2 (10:30→17:33)
[2020-06-25] MEDS: METOPROLOL TARTRATE 25MG TABLET PO SCH ×2 (10:32→20:50)
[2020-06-25] MEDS: CALCITRIOL 0.25MCG CAPSULE PO SCH (10:32)
[2020-06-25] MEDS: MEGESTROL ACETATE 40MG TABLET PO SCH ×2 (10:33→17:33)
[2020-06-25] MEDS: AMLODIPINE 10MG TABLET PO SCH (10:33)
[2020-06-25] MEDS ORDERED: ERGO80009 PO (13:22)
[2020-06-25] MEDS ORDERED: METO25TA6 PO ×2 (13:22)
[2020-06-25] MEDS: CEFEPIME 1,000 MG in DEXTROSE 5% WATER 50 ML IV SCH (16:38)
[2020-06-25] MEDS: DICLOFENAC SODIUM 0.1% OPHTH 2.5 ML BOTTLE BOTHEYE SCH (16:39)
[2020-06-25] MEDS: ACETAMINOPHEN 325MG TABLET PO PRN (16:43)
[2020-06-25] MEDS: ONDANSETRON HCL 4MG/2ML INJ IV PRN (16:44)
[2020-06-25] MEDS: ERGOCALCIFEROL 50000UNITS CAPSULE PO SCH (17:33)
[2020-06-25 20:00] VITALS: BP 132/80
[2020-06-26] VITALS: BP 149/77
[2020-06-26 04:00] VITALS: BP 143/75
[2020-06-26] MEDS: ONDANSETRON HCL 4MG/2ML INJ IV PRN ×2 (04:45→10:14)
[2020-06-26] MEDS: ACETAMINOPHEN 325MG TABLET PO PRN ×2 (04:45→21:23)
[2020-06-26] MEDS: BLOOD SUGAR DIAGNOSTIC STRIP TEST SCH ×4 (07:20→21:00)
[2020-06-26 08:00] VITALS: BP 149/75
[2020-06-26] MEDS: MEGESTROL ACETATE 40MG TABLET PO SCH ×2 (09:43→17:55)
[2020-06-26] MEDS: METOPROLOL TARTRATE 25MG TABLET PO SCH ×2 (09:43→21:24)
[2020-06-26] MEDS: FOLIC ACID 1MG TABLET PO SCH (09:43)
[2020-06-26] MEDS: CALCITRIOL 0.25MCG CAPSULE PO SCH (09:43)
[2020-06-26] MEDS: AMLODIPINE 10MG TABLET PO SCH (09:43)
[2020-06-26] MEDS: FERROUS SULFATE 325MG TABLET PO SCH ×4 (09:43→17:54)
[2020-06-26] MEDS: DOCUSATE SODIUM 100MG CAPSULE PO SCH ×2 (09:43→17:00)
[2020-06-26] MEDS ORDERED: HYDROCODONE/ACETAMINOPHEN 5/325MG TABLET PO PRN (10:00)
[2020-06-26] MEDS: HYDROCODONE/ACETAMINOPHEN 10/325MG TABLET PO PRN (10:14)
[2020-06-26 12:00] VITALS: BP 137/73
[2020-06-26] MEDS: DICLOFENAC SODIUM 0.1% OPHTH 2.5 ML BOTTLE BOTHEYE SCH (14:24)
[2020-06-26 16:00] VITALS: BP 126/71
[2020-06-26] MEDS: CEFEPIME 1,000 MG in DEXTROSE 5% WATER 50 ML IV SCH (17:55)
[2020-06-26 20:00] VITALS: BP 113/67
[2020-06-27] VITALS: BP 120/55
[2020-06-27 04:00] VITALS: BP 115/61
[2020-06-27] MEDS: HYDROCODONE/ACETAMINOPHEN 10/325MG TABLET PO PRN ×3 (04:24→21:17)
[2020-06-27] MEDS: BLOOD SUGAR DIAGNOSTIC STRIP TEST SCH ×4 (06:31→21:00)
[2020-06-27 08:00] VITALS: BP 112/64
[2020-06-27] MEDS: FOLIC ACID 1MG TABLET PO SCH (09:02)
[2020-06-27] MEDS: CALCITRIOL 0.25MCG CAPSULE PO SCH (09:02)
[2020-06-27] MEDS: FERROUS SULFATE 325MG TABLET PO SCH ×3 (09:02→18:23)
[2020-06-27] MEDS: MEGESTROL ACETATE 40MG TABLET PO SCH ×2 (09:02→18:05)
[2020-06-27] MEDS: DOCUSATE SODIUM 100MG CAPSULE PO SCH ×2 (09:03→18:07)
[2020-06-27] MEDS: AMLODIPINE 10MG TABLET PO SCH (09:48)
[2020-06-27] MEDS: METOPROLOL TARTRATE 25MG TABLET PO SCH ×2 (09:48→21:18)
[2020-06-27] MEDS: ONDANSETRON HCL 4MG/2ML INJ IV PRN (11:09)
[2020-06-27 12:00] VITALS: BP 95/52
[2020-06-27] MEDS: DICLOFENAC SODIUM 0.1% OPHTH 2.5 ML BOTTLE BOTHEYE SCH (14:04)
[2020-06-27] MEDS: CEFEPIME 1,000 MG in DEXTROSE 5% WATER 50 ML IV SCH (15:56)
[2020-06-27 16:00] VITALS: BP 102/55
[2020-06-28] VITALS: BP 119/64
[2020-06-28 04:00] VITALS: BP 125/63
[2020-06-28] MEDS: HYDROCODONE/ACETAMINOPHEN 10/325MG TABLET PO PRN ×3 (04:00→18:25)
[2020-06-28] MEDS: BLOOD SUGAR DIAGNOSTIC STRIP TEST SCH ×4 (06:58→21:25)
[2020-06-28 08:00] VITALS: BP 117/81
[2020-06-28] MEDS: DOCUSATE SODIUM 100MG CAPSULE PO SCH ×2 (09:26→16:21)
[2020-06-28] MEDS: MEGESTROL ACETATE 40MG TABLET PO SCH ×2 (09:26→16:21)
[2020-06-28] MEDS: METOPROLOL TARTRATE 25MG TABLET PO SCH ×2 (09:27→20:54)
[2020-06-28] MEDS: FOLIC ACID 1MG TABLET PO SCH (09:28)
[2020-06-28] MEDS: FERROUS SULFATE 325MG TABLET PO SCH ×3 (09:28→18:08)
[2020-06-28] MEDS: AMLODIPINE 10MG TABLET PO SCH (09:28)
[2020-06-28] MEDS: DEXT 5%/0.9% NACL 1,000 ML IV SCH ×2 (09:30→21:31)
[2020-06-28] MEDS: CALCITRIOL 0.25MCG CAPSULE PO SCH (09:32)
[2020-06-28 12:00] VITALS: BP 118/69
[2020-06-28 16:00] VITALS: BP 113/72
[2020-06-28] MEDS: DICLOFENAC SODIUM 0.1% OPHTH 2.5 ML BOTTLE BOTHEYE SCH (16:22)
[2020-06-28 20:00] VITALS: BP 114/65
[2020-06-28] MEDS: CEFEPIME 1,000 MG in DEXTROSE 5% WATER 50 ML IV SCH (20:54)
[2020-06-29] VITALS: BP 105/64
[2020-06-29 04:00] VITALS: BP 139/60
[2020-06-29] MEDS: BLOOD SUGAR DIAGNOSTIC STRIP TEST SCH ×4 (06:20→21:00)
[2020-06-29] MEDS: ONDANSETRON HCL 4MG/2ML INJ IV PRN (06:34)
[2020-06-29] MEDS: HYDROCODONE/ACETAMINOPHEN 10/325MG TABLET PO PRN ×2 (06:35→13:56)
[2020-06-29 08:00] VITALS: BP 136/73
[2020-06-29] MEDS: DOCUSATE SODIUM 100MG CAPSULE PO SCH ×2 (09:04→17:12)
[2020-06-29] MEDS: MEGESTROL ACETATE 40MG TABLET PO SCH ×2 (09:04→17:12)
[2020-06-29] MEDS: AMLODIPINE 10MG TABLET PO SCH (09:04)
[2020-06-29] MEDS: CALCITRIOL 0.25MCG CAPSULE PO SCH (09:04)
[2020-06-29] MEDS: FERROUS SULFATE 325MG TABLET PO SCH ×3 (09:04→17:12)
[2020-06-29] MEDS: FOLIC ACID 1MG TABLET PO SCH (09:05)
[2020-06-29] MEDS: METOPROLOL TARTRATE 25MG TABLET PO SCH ×2 (09:13→21:00)
[2020-06-29 12:00] VITALS: BP 136/73
[2020-06-29 16:00] VITALS: BP 136/73
[2020-06-29] MEDS: DICLOFENAC SODIUM 0.1% OPHTH 2.5 ML BOTTLE BOTHEYE SCH (17:09)
[2020-06-29] MEDS: CEFEPIME 1,000 MG in DEXTROSE 5% WATER 50 ML IV SCH (17:12)
[2020-06-29 20:00] VITALS: BP 140/68
[2020-06-30] VITALS: BP 145/69
[2020-06-30 04:00] VITALS: BP 145/80
[2020-06-30] MEDS: BLOOD SUGAR DIAGNOSTIC STRIP TEST SCH ×4 (06:58→21:00)
[2020-06-30 08:00] VITALS: BP 148/78
[2020-06-30] MEDS: DEXT 5%/0.9% NACL 1,000 ML IV SCH (09:30)
[2020-06-30] MEDS: FERROUS SULFATE 325MG TABLET PO SCH ×3 (10:28→18:38)
[2020-06-30] MEDS: FOLIC ACID 1MG TABLET PO SCH (10:28)
[2020-06-30] MEDS: CALCITRIOL 0.25MCG CAPSULE PO SCH (10:28)
[2020-06-30] MEDS: DOCUSATE SODIUM 100MG CAPSULE PO SCH ×2 (10:29→18:38)
[2020-06-30] MEDS: METOPROLOL TARTRATE 25MG TABLET PO SCH ×2 (10:29→21:57)
[2020-06-30] MEDS: AMLODIPINE 10MG TABLET PO SCH (10:29)
[2020-06-30] MEDS: MEGESTROL ACETATE 40MG TABLET PO SCH ×2 (10:30→18:38)
[2020-06-30] MEDS: HYDROCODONE/ACETAMINOPHEN 10/325MG TABLET PO PRN (10:30)
[2020-06-30 12:00] VITALS: BP 153/75
[2020-06-30] MEDS: DICLOFENAC SODIUM 0.1% OPHTH 2.5 ML BOTTLE BOTHEYE SCH (14:32)
[2020-06-30 16:00] VITALS: BP 142/76
[2020-06-30] MEDS: CEFEPIME 1,000 MG in DEXTROSE 5% WATER 50 ML IV SCH (18:38)
[2020-06-30 20:00] VITALS: BP 135/72
[2020-07-01] VITALS: BP 140/73
[2020-07-01 04:00] VITALS: BP 138/75
[2020-07-01] MEDS: HYDROCODONE/ACETAMINOPHEN 10/325MG TABLET PO PRN ×2 (05:06→18:47)
[2020-07-01] MEDS: BLOOD SUGAR DIAGNOSTIC STRIP TEST SCH ×4 (07:41→21:23)
[2020-07-01 08:00] VITALS: BP 116/60
[2020-07-01] MEDS: AMLODIPINE 10MG TABLET PO SCH (09:27)
[2020-07-01] MEDS: DOCUSATE SODIUM 100MG CAPSULE PO SCH ×2 (09:28→16:29)
[2020-07-01] MEDS: FERROUS SULFATE 325MG TABLET PO SCH ×3 (09:28→18:46)
[2020-07-01] MEDS: CALCITRIOL 0.25MCG CAPSULE PO SCH (09:28)
[2020-07-01] MEDS: FOLIC ACID 1MG TABLET PO SCH (09:28)
[2020-07-01] MEDS: METOPROLOL TARTRATE 25MG TABLET PO SCH ×2 (09:28→21:23)
[2020-07-01] MEDS: MEGESTROL ACETATE 40MG TABLET PO SCH ×2 (09:28→16:29)
[2020-07-01] MEDS: DEXT 5%/0.9% NACL 1,000 ML IV SCH (09:30)
[2020-07-01 09:39] LABS: MEAN CORPUSCULAR HEMOGLOBIN 29.7 pg (28.0-32.0); MEAN CORPUSCULAR VOLUME 86.2 fL (80.0-94.0); PLATELET 171 x1000/uL (130-400); RED BLOOD CELL COUNT 3.36 mill/uL (4.7-6.1); RED CELL DISTRIBUTION WIDTH 15.5 % (11.6-14.6)
[2020-07-01 12:00] VITALS: BP 120/58
[2020-07-01 16:00] VITALS: BP 98/62
[2020-07-01] MEDS: DICLOFENAC SODIUM 0.1% OPHTH 2.5 ML BOTTLE BOTHEYE SCH (16:23)
[2020-07-01] MEDS: CEFEPIME 1,000 MG in DEXTROSE 5% WATER 50 ML IV SCH (16:29)
[2020-07-01 20:00] VITALS: BP 112/57
[2020-07-02] VITALS: BP 163/66
[2020-07-02 04:00] VITALS: BP 161/59
[2020-07-02] MEDS: BLOOD SUGAR DIAGNOSTIC STRIP TEST SCH ×4 (07:19→20:51)
[2020-07-02 08:00] VITALS: BP 130/72
[2020-07-02] MEDS: METOPROLOL TARTRATE 25MG TABLET PO SCH ×2 (09:00→20:51)
[2020-07-02] MEDS: AMLODIPINE 10MG TABLET PO SCH (09:00)
[2020-07-02] MEDS: FERROUS SULFATE 325MG TABLET PO SCH ×3 (09:06→18:11)
[2020-07-02] MEDS: DOCUSATE SODIUM 100MG CAPSULE PO SCH ×2 (09:06→16:18)
[2020-07-02] MEDS: ERGOCALCIFEROL 50000UNITS CAPSULE PO SCH (09:06)
[2020-07-02] MEDS: FOLIC ACID 1MG TABLET PO SCH (09:06)
[2020-07-02] MEDS: CALCITRIOL 0.25MCG CAPSULE PO SCH (09:07)
[2020-07-02] MEDS: MEGESTROL ACETATE 40MG TABLET PO SCH ×2 (09:07→16:18)
[2020-07-02] MEDS: HYDROCODONE/ACETAMINOPHEN 10/325MG TABLET PO PRN (09:14)
[2020-07-02] MEDS: DEXT 5%/0.9% NACL 1,000 ML IV SCH (09:30)
[2020-07-02 12:00] VITALS: BP 124/60
[2020-07-02] MEDS: DICLOFENAC SODIUM 0.1% OPHTH 2.5 ML BOTTLE BOTHEYE SCH (16:18)
[2020-07-02] MEDS: CEFEPIME 1,000 MG in DEXTROSE 5% WATER 50 ML IV SCH (16:19)
[2020-07-02 20:00] VITALS: BP 127/71
[2020-07-02] MEDS ORDERED: DEXTROSE 50% WATER 50ML SYRINGE IV PRN (22:30)
[2020-07-02] MEDS: INSULIN LISPRO 100 UNITS/ML SUBCUT SCH (23:16)
[2020-07-03] VITALS: BP 142/70
[2020-07-03 04:00] VITALS: BP 144/69
[2020-07-03] MEDS: BLOOD SUGAR DIAGNOSTIC STRIP TEST SCH ×4 (06:49→21:28)
[2020-07-03] MEDS: INSULIN LISPRO 100 UNITS/ML SUBCUT SCH ×4 (07:50→21:00)
[2020-07-03 08:00] VITALS: BP 136/74
[2020-07-03] MEDS: CALCITRIOL 0.25MCG CAPSULE PO SCH (09:28)
[2020-07-03] MEDS: DOCUSATE SODIUM 100MG CAPSULE PO SCH ×2 (09:28→17:23)
[2020-07-03] MEDS: FOLIC ACID 1MG TABLET PO SCH (09:28)
[2020-07-03] MEDS: MEGESTROL ACETATE 40MG TABLET PO SCH ×2 (09:29→17:23)
[2020-07-03] MEDS: AMLODIPINE 10MG TABLET PO SCH (09:29)
[2020-07-03] MEDS: DEXT 5%/0.9% NACL 1,000 ML IV SCH (09:30)
[2020-07-03] MEDS: METOPROLOL TARTRATE 25MG TABLET PO SCH ×2 (09:30→21:31)
[2020-07-03] MEDS: FERROUS SULFATE 325MG TABLET PO SCH ×3 (09:51→17:23)
[2020-07-03 12:00] VITALS: BP 130/64
[2020-07-03] MEDS: CEFEPIME 1,000 MG in DEXTROSE 5% WATER 50 ML IV SCH (15:16)
[2020-07-03] MEDS: DICLOFENAC SODIUM 0.1% OPHTH 2.5 ML BOTTLE BOTHEYE SCH (15:16)
[2020-07-03 16:00] VITALS: BP 148/74
[2020-07-03 20:00] VITALS: BP 126/75
[2020-07-03] MEDS: HYDROCODONE/ACETAMINOPHEN 10/325MG TABLET PO PRN (21:31)
[2020-07-04] VITALS: BP 140/75
[2020-07-04 04:00] VITALS: BP 156/75
[2020-07-04] MEDS: BLOOD SUGAR DIAGNOSTIC STRIP TEST SCH ×4 (07:05→21:35)
[2020-07-04] MEDS: INSULIN LISPRO 100 UNITS/ML SUBCUT SCH ×4 (07:50→21:00)
[2020-07-04 08:00] VITALS: BP 152/72
[2020-07-04] MEDS: FERROUS SULFATE 325MG TABLET PO SCH ×3 (08:42→18:22)
[2020-07-04] MEDS: FOLIC ACID 1MG TABLET PO SCH (08:52)
[2020-07-04] MEDS: MEGESTROL ACETATE 40MG TABLET PO SCH ×2 (08:52→18:22)
[2020-07-04] MEDS: DOCUSATE SODIUM 100MG CAPSULE PO SCH ×2 (08:52→18:22)
[2020-07-04] MEDS: CALCITRIOL 0.25MCG CAPSULE PO SCH (08:52)
[2020-07-04] MEDS: AMLODIPINE 10MG TABLET PO SCH (08:53)
[2020-07-04] MEDS: METOPROLOL TARTRATE 25MG TABLET PO SCH ×2 (08:54→21:36)
[2020-07-04] MEDS: DEXT 5%/0.9% NACL 1,000 ML IV SCH (09:30)
[2020-07-04 12:00] VITALS: BP 136/66
[2020-07-04] MEDS: DICLOFENAC SODIUM 0.1% OPHTH 2.5 ML BOTTLE BOTHEYE SCH (15:28)
[2020-07-04 16:00] VITALS: BP 138/66
[2020-07-04] MEDS: CEFEPIME 1,000 MG in DEXTROSE 5% WATER 50 ML IV SCH (18:21)
[2020-07-04 20:00] VITALS: BP 158/73
[2020-07-04] MEDS: HYDROCODONE/ACETAMINOPHEN 10/325MG TABLET PO PRN (21:39)
[2020-07-05] VITALS (11 sets, daily range): BP systolic 97–167; BP diastolic 70–90
[2020-07-05] MEDS: BLOOD SUGAR DIAGNOSTIC STRIP TEST SCH ×4 (06:44→20:51)
[2020-07-05] MEDS: INSULIN LISPRO 100 UNITS/ML SUBCUT SCH ×4 (07:50→21:00)
[2020-07-05] MEDS: CALCITRIOL 0.25MCG CAPSULE PO SCH (08:50)
[2020-07-05] MEDS: FOLIC ACID 1MG TABLET PO SCH ×2 (08:51→08:59)
[2020-07-05] MEDS: DOCUSATE SODIUM 100MG CAPSULE PO SCH ×2 (08:51→16:32)
[2020-07-05] MEDS: FERROUS SULFATE 325MG TABLET PO SCH ×3 (08:51→16:33)
[2020-07-05] MEDS: MEGESTROL ACETATE 40MG TABLET PO SCH ×2 (08:56→16:32)
[2020-07-05] MEDS: METOPROLOL TARTRATE 25MG TABLET PO SCH ×2 (08:56→20:40)
[2020-07-05] MEDS: AMLODIPINE 10MG TABLET PO SCH ×2 (08:57→08:59)
[2020-07-05] MEDS ORDERED: IOHEXOL-300 100 ML BOTTLE ONE (12:30)
[2020-07-05] MEDS ORDERED: HEPARIN 1000 UNITS/ML 10ML ONE (12:30)
[2020-07-05] MEDS ORDERED: LIDOCAINE HCL 1% 20ML VIAL (Pyxis) INJ ONE (12:31)
[2020-07-05] MEDS ORDERED: IOHEXOL-350 100 ML BOTTLE ONE (14:23)
[2020-07-05] MEDS: DICLOFENAC SODIUM 0.1% OPHTH 2.5 ML BOTTLE BOTHEYE SCH (16:31)
[2020-07-05] MEDS: CEFEPIME 1,000 MG in DEXTROSE 5% WATER 50 ML IV SCH (16:32)
[2020-07-05] MEDS: HYDROCODONE/ACETAMINOPHEN 10/325MG TABLET PO PRN (20:40)
[2020-07-05] MEDS: HYDRALAZINE 10 MG in SODIUM CHLORIDE 0.9% 49.5 ML IV PRN (23:03)
[2020-07-06] VITALS: BP 144/72
[2020-07-06 04:00] VITALS: BP 148/76
[2020-07-06 06:32] LABS: BASOPHILS % 0.7 % (0.0-2.0); EOSINOPHILS % 2.5 % (0.0-5.0); HEMOGLOBIN. 9.6 g/dL (14.0-18.0); LYMPHOCYTES % 23.3 % (20.0-50.0); MEAN CORPUSCULAR HEMOGLOBIN 29.4 pg (28.0-32.0); MEAN CORPUSCULAR VOLUME 86.3 fL (80.0-94.0); MEAN PLATELET VOLUME 7.9 fl (7.4-10.4); MONOCYTES % 5.9 % (2.0-8.0); NEUTROPHILS % 67.6 % (40.0-76.0); PLATELET 203 x1000/uL (130-400); RED BLOOD CELL COUNT 3.25 mill/uL (4.7-6.1); RED CELL DISTRIBUTION WIDTH 15.2 % (11.6-14.6)
[2020-07-06] MEDS: INSULIN LISPRO 100 UNITS/ML SUBCUT SCH ×3 (07:42→17:03)
[2020-07-06] MEDS: BLOOD SUGAR DIAGNOSTIC STRIP TEST SCH ×4 (07:42→21:00)
[2020-07-06 08:00] VITALS: BP 110/75
[2020-07-06] MEDS: MEGESTROL ACETATE 40MG TABLET PO SCH ×2 (08:11→16:55)
[2020-07-06] MEDS: CALCITRIOL 0.25MCG CAPSULE PO SCH (08:11)
[2020-07-06] MEDS: FOLIC ACID 1MG TABLET PO SCH (08:11)
[2020-07-06] MEDS: DOCUSATE SODIUM 100MG CAPSULE PO SCH ×2 (08:11→16:25)
[2020-07-06] MEDS: FERROUS SULFATE 325MG TABLET PO SCH ×3 (08:11→16:25)
[2020-07-06] MEDS: AMLODIPINE 10MG TABLET PO SCH (08:13)
[2020-07-06] MEDS: METOPROLOL TARTRATE 25MG TABLET PO SCH ×2 (08:14→21:35)
[2020-07-06 12:00] VITALS: BP 142/70
[2020-07-06 16:00] VITALS: BP 128/68
[2020-07-06] MEDS: CEFEPIME 1,000 MG in DEXTROSE 5% WATER 50 ML IV SCH (16:25)
[2020-07-06] MEDS: DICLOFENAC SODIUM 0.1% OPHTH 2.5 ML BOTTLE BOTHEYE SCH (16:27)
[2020-07-06] MEDS ORDERED: FUROSEMIDE 20MG TABLET PO NR (19:36)
[2020-07-06 20:00] VITALS: BP 155/85
[2020-07-06] MEDS ORDERED: HYDROCODONE/ACETAMINOPHEN 10/325MG TABLET PO PRN (21:30)
[2020-07-07 00:29] VITALS: BP 140/71
[2020-07-07 04:00] VITALS: BP 154/71
[2020-07-07 06:45] LABS: BASOPHILS % 0.7 % (0.0-2.0); EOSINOPHILS % 2.2 % (0.0-5.0); HEMATOCRIT. 25.3 % (42.0-52.0); HEMOGLOBIN. 8.7 g/dL (14.0-18.0); LYMPHOCYTES % 22.3 % (20.0-50.0); MEAN CORPUSCULAR HEMOGLOBIN 29.6 pg (28.0-32.0); MEAN CORPUSCULAR VOLUME 85.9 fL (80.0-94.0); MEAN PLATELET VOLUME 7.9 fl (7.4-10.4); MONOCYTES % 6.1 % (2.0-8.0); NEUTROPHILS % 68.7 % (40.0-76.0); PLATELET 211 x1000/uL (130-400); RED BLOOD CELL COUNT 2.94 mill/uL (4.7-6.1); RED CELL DISTRIBUTION WIDTH 14.9 % (11.6-14.6)
[2020-07-07] MEDS: INSULIN LISPRO 100 UNITS/ML SUBCUT SCH ×4 (07:50→23:13)
[2020-07-07] MEDS: BLOOD SUGAR DIAGNOSTIC STRIP TEST SCH ×4 (07:50→21:00)
[2020-07-07 08:00] VITALS: BP 166/76
[2020-07-07] MEDS: CALCITRIOL 0.25MCG CAPSULE PO SCH (09:18)
[2020-07-07] MEDS: DEXT 5%/0.9% NACL 1,000 ML IV SCH (09:18)
[2020-07-07] MEDS: FERROUS SULFATE 325MG TABLET PO SCH ×3 (09:19→18:20)
[2020-07-07] MEDS: FOLIC ACID 1MG TABLET PO SCH (09:19)
[2020-07-07] MEDS: DOCUSATE SODIUM 100MG CAPSULE PO SCH ×2 (09:19→18:19)
[2020-07-07] MEDS: METOPROLOL TARTRATE 25MG TABLET PO SCH (09:19)
[2020-07-07] MEDS: AMLODIPINE 10MG TABLET PO SCH (09:19)
[2020-07-07] MEDS: MEGESTROL ACETATE 40MG TABLET PO SCH ×2 (09:30→18:23)
[2020-07-07] MEDS ORDERED: HYDROCODONE/ACETAMINOPHEN 5/325MG TABLET PO PRN (09:45)
[2020-07-07] MEDS: HYDROCODONE/ACETAMINOPHEN 10/325MG TABLET PO PRN (10:23)
[2020-07-07 12:00] VITALS: BP 158/79
[2020-07-07] MEDS ORDERED: BACITRACIN 15GM TUBE TOP ONE (13:09)
[2020-07-07] MEDS ORDERED: LIDOCAINE HCL 1% 20ML VIAL (Pyxis) INJ ONE (13:10)
[2020-07-07] MEDS ORDERED: THROMBIN (BOVINE) 5000 UNITS/VIAL TOP ONE (13:10)
[2020-07-07] MEDS ORDERED: BUPIVACAINE HCL 0.5% (5MG/ML) 50ML ONE (13:10)
[2020-07-07] MEDS ORDERED: HEPARIN SODIUM 1,000 UNIT/1ML VIAL IV ONE (13:10)
[2020-07-07] MEDS ORDERED: SODIUM CHLORIDE 0.9% INJ 10ML FLUSH IVF ONE (13:10)
[2020-07-07] MEDS ORDERED: BACITRACIN 50,000 UNITS/VIAL ONE (13:11)
[2020-07-07] MEDS ORDERED: ROPIVACAINE HCL 10MG/ML 20 ML VIAL EPI ONE (13:43)
[2020-07-07] MEDS ORDERED: FENTANYL CITRATE/PF 50MCG/ML 2ML VIAL ONE (13:46)
[2020-07-07] MEDS ORDERED: MIDAZOLAM HCL 2 MG/2 ML VIAL ONE (13:47)
[2020-07-07] MEDS ORDERED: DEXAMETHASONE 4MG/ML 1ML VIAL ONE (13:50)
[2020-07-07] MEDS ORDERED: ONDANSETRON HCL 4MG/2ML INJ ONE (13:50)
[2020-07-07] MEDS ORDERED: PROPOFOL 10MG/ML 100ML 100 ML IV ONE (13:51)
[2020-07-07 16:00] VITALS: BP 158/79
[2020-07-07] MEDS: DICLOFENAC SODIUM 0.1% OPHTH 2.5 ML BOTTLE BOTHEYE SCH (18:21)
[2020-07-07] MEDS: CEFEPIME 1,000 MG in DEXTROSE 5% WATER 50 ML IV SCH (18:21)
[2020-07-07 20:00] VITALS: BP 148/73
[2020-07-08] VITALS: BP 143/58
[2020-07-08] MEDS: ONDANSETRON HCL 4MG/2ML INJ IV PRN ×2 (03:54→12:06)
[2020-07-08 04:00] VITALS: BP 162/87
[2020-07-08] MEDS: BLOOD SUGAR DIAGNOSTIC STRIP TEST SCH ×4 (07:20→21:18)
[2020-07-08 07:39] LABS: BASOPHILS % 0.4 % (0.0-2.0); HEMATOCRIT. 27.4 % (42.0-52.0); HEMOGLOBIN. 9.4 g/dL (14.0-18.0); LYMPHOCYTES % 11.1 % (20.0-50.0); MEAN CORPUSCULAR HEMOGLOBIN 29.4 pg (28.0-32.0); MEAN CORPUSCULAR VOLUME 85.9 fL (80.0-94.0); MEAN PLATELET VOLUME 8.4 fl (7.4-10.4); MONOCYTES % 2.1 % (2.0-8.0); NEUTROPHILS % 86.4 % (40.0-76.0); PLATELET 248 x1000/uL (130-400); RED BLOOD CELL COUNT 3.19 mill/uL (4.7-6.1); RED CELL DISTRIBUTION WIDTH 14.8 % (11.6-14.6)
[2020-07-08] MEDS: MEGESTROL ACETATE 40MG TABLET PO SCH ×2 (08:37→16:46)
[2020-07-08] MEDS: FUROSEMIDE 40MG TABLET PO SCH ×2 (08:37→21:14)
[2020-07-08] MEDS: CALCITRIOL 0.25MCG CAPSULE PO SCH (08:37)
[2020-07-08] MEDS: FOLIC ACID 1MG TABLET PO SCH (08:37)
[2020-07-08] MEDS: DOCUSATE SODIUM 100MG CAPSULE PO SCH ×2 (08:37→16:46)
[2020-07-08] MEDS: AMLODIPINE 10MG TABLET PO SCH (08:38)
[2020-07-08] MEDS: INSULIN LISPRO 100 UNITS/ML SUBCUT SCH ×4 (08:46→21:00)
[2020-07-08] MEDS: DEXT 5%/0.9% NACL 1,000 ML IV SCH (12:06)
[2020-07-08] MEDS: HYDROCODONE/ACETAMINOPHEN 10/325MG TABLET PO PRN (12:07)
[2020-07-08] MEDS ORDERED: LEVO750T46 MT ×2 (12:13)
[2020-07-08] MEDS: DICLOFENAC SODIUM 0.1% OPHTH 2.5 ML BOTTLE BOTHEYE SCH (14:24)
[2020-07-08] MEDS: CEFEPIME 1,000 MG in DEXTROSE 5% WATER 50 ML IV SCH (16:48)
[2020-07-08 20:00] VITALS: BP 146/71
[2020-07-08] MEDS ORDERED: EPOETIN ALFA-EPBX 4,000 UNIT/ML VIAL SUBCUT NR (21:30)
[2020-07-09] VITALS: BP 154/68
[2020-07-09 04:00] VITALS: BP 159/80
[2020-07-09 04:10] VITALS: BP 159/80
[2020-07-09] MEDS: BLOOD SUGAR DIAGNOSTIC STRIP TEST SCH ×4 (06:55→21:05)
[2020-07-09] MEDS: INSULIN LISPRO 100 UNITS/ML SUBCUT SCH ×4 (06:56→21:00)
[2020-07-09 08:00] VITALS: BP 173/84
[2020-07-09] MEDS: ERGOCALCIFEROL 50000UNITS CAPSULE PO SCH (08:18)
[2020-07-09] MEDS: FOLIC ACID 1MG TABLET PO SCH (08:18)
[2020-07-09] MEDS: MEGESTROL ACETATE 40MG TABLET PO SCH ×2 (08:18→17:15)
[2020-07-09] MEDS: FUROSEMIDE 40MG TABLET PO SCH ×2 (08:18→21:05)
[2020-07-09] MEDS: DOCUSATE SODIUM 100MG CAPSULE PO SCH ×2 (08:18→17:15)
[2020-07-09] MEDS: HYDRALAZINE 20MG/ML VIAL IV SCH ×3 (10:37→10:53)
[2020-07-09] MEDS: ONDANSETRON HCL 4MG/2ML INJ IV PRN (10:41)
[2020-07-09 12:00] VITALS: BP 129/79
[2020-07-09] MEDS ORDERED: LIDOCAINE HCL 1% 20ML VIAL (Pyxis) INJ ONE (14:47)
[2020-07-09] MEDS: DICLOFENAC SODIUM 0.1% OPHTH 2.5 ML BOTTLE BOTHEYE SCH (15:38)
[2020-07-09 16:00] VITALS: BP 125/61
[2020-07-09] MEDS: CEFEPIME 1,000 MG in DEXTROSE 5% WATER 50 ML IV SCH (17:15)
[2020-07-09] MEDS: MORPHINE SULFATE 2 MG/ML CPJ (NOT FOR IM USE) IV PRN ×2 (17:26→21:03)
[2020-07-10] VITALS: BP 156/82
[2020-07-10] MEDS: MORPHINE SULFATE 2 MG/ML CPJ (NOT FOR IM USE) IV PRN ×3 (02:14→17:54)
[2020-07-10 04:00] VITALS: BP 136/53
[2020-07-10] MEDS: INSULIN LISPRO 100 UNITS/ML SUBCUT SCH ×4 (07:50→21:00)
[2020-07-10] MEDS: BLOOD SUGAR DIAGNOSTIC STRIP TEST SCH ×4 (07:53→21:00)
[2020-07-10 08:00] VITALS: BP 151/47
[2020-07-10] MEDS: MEGESTROL ACETATE 40MG TABLET PO SCH ×2 (08:17→17:13)
[2020-07-10] MEDS: FOLIC ACID 1MG TABLET PO SCH (08:17)
[2020-07-10] MEDS: FUROSEMIDE 40MG TABLET PO SCH ×2 (08:17→20:49)
[2020-07-10] MEDS: DOCUSATE SODIUM 100MG CAPSULE PO SCH (08:17)
[2020-07-10 12:00] VITALS: BP 144/66
[2020-07-10 16:00] VITALS: BP 149/69
[2020-07-10] MEDS: CEFEPIME 1,000 MG in DEXTROSE 5% WATER 50 ML IV SCH (17:13)
[2020-07-10] MEDS: DICLOFENAC SODIUM 0.1% OPHTH 2.5 ML BOTTLE BOTHEYE SCH (17:14)
[2020-07-10 20:00] VITALS: BP 127/31
[2020-07-11] VITALS: BP 130/65
[2020-07-11 04:00] VITALS: BP 144/69
[2020-07-11] MEDS: INSULIN LISPRO 100 UNITS/ML SUBCUT SCH ×4 (07:33→20:48)
[2020-07-11] MEDS: BLOOD SUGAR DIAGNOSTIC STRIP TEST SCH ×4 (07:33→20:48)
[2020-07-11 08:00] VITALS: BP 183/61
[2020-07-11] MEDS: FUROSEMIDE 40MG TABLET PO SCH ×2 (09:56→20:48)
[2020-07-11] MEDS: FOLIC ACID 1MG TABLET PO SCH (09:56)
[2020-07-11] MEDS: CLONIDINE 0.1MG TABLET PO PRN (09:56)
[2020-07-11] MEDS: MEGESTROL ACETATE 40MG TABLET PO SCH ×2 (09:56→17:29)
[2020-07-11] MEDS: MORPHINE SULFATE 2 MG/ML CPJ (NOT FOR IM USE) IV PRN ×2 (10:28→17:29)
[2020-07-11 12:00] VITALS: BP 104/66
[2020-07-11] MEDS: DICLOFENAC SODIUM 0.1% OPHTH 2.5 ML BOTTLE BOTHEYE SCH (15:05)
[2020-07-11] MEDS: CEFEPIME 1,000 MG in DEXTROSE 5% WATER 50 ML IV SCH (15:05)
[2020-07-11 16:00] VITALS: BP 154/69
[2020-07-11 20:00] VITALS: BP 150/76
[2020-07-11] MEDS ORDERED: EPOETIN ALFA-EPBX 4,000 UNIT/ML VIAL SUBCUT NR (21:30)
[2020-07-12] VITALS: BP 169/71
[2020-07-12] MEDS: CLONIDINE 0.1MG TABLET PO PRN ×3 (01:00→13:28)
[2020-07-12 04:00] VITALS: BP 184/74
[2020-07-12] MEDS: BLOOD SUGAR DIAGNOSTIC STRIP TEST SCH ×4 (06:59→21:00)
[2020-07-12 08:00] VITALS: BP 180/80
[2020-07-12] MEDS: FUROSEMIDE 40MG TABLET PO SCH ×2 (08:40→22:19)
[2020-07-12] MEDS: FOLIC ACID 1MG TABLET PO SCH (08:40)
[2020-07-12] MEDS: INSULIN LISPRO 100 UNITS/ML SUBCUT SCH ×4 (08:42→21:00)
[2020-07-12] MEDS: MEGESTROL ACETATE 40MG TABLET PO SCH ×2 (08:42→17:58)
[2020-07-12 11:27] LABS: HEMATOCRIT. 23.3 % (42.0-52.0); HEMOGLOBIN. 7.6 g/dL (14.0-18.0); MEAN CORPUSCULAR HEMOGLOBIN 28.7 pg (28.0-32.0); MEAN CORPUSCULAR VOLUME 87.9 fL (80.0-94.0); MEAN PLATELET VOLUME 8.7 fl (7.4-10.4); PLATELET 187 x1000/uL (130-400); RED BLOOD CELL COUNT 2.65 mill/uL (4.7-6.1); RED CELL DISTRIBUTION WIDTH 15.6 % (11.6-14.6)
[2020-07-12 12:00] VITALS: BP 157/81
[2020-07-12] MEDS: CEFEPIME 1,000 MG in DEXTROSE 5% WATER 50 ML IV SCH ×2 (13:28→20:00)
[2020-07-12 14:36] LABS: PLATELET ESTIMATE NORMAL
[2020-07-12 16:00] VITALS: BP 121/62
[2020-07-12] MEDS ORDERED: CEFEPIME 1,000 MG in DEXTROSE 5% WATER 50 ML IV SCH (16:00)
[2020-07-12] MEDS: MORPHINE SULFATE 2 MG/ML CPJ (NOT FOR IM USE) IV PRN ×2 (17:59→22:47)
[2020-07-12] MEDS: ACETAMINOPHEN 650MG/20.3ML UDC PO PRN (18:38)
[2020-07-12 20:00] VITALS: BP 137/68
[2020-07-12] MEDS ORDERED: FERROUS SULFATE 325MG TABLET PO SCH (21:00)
[2020-07-12] MEDS ORDERED: VANCOMYCIN 1 G PREMIX 200 ML IV NR (21:04)
[2020-07-12] MEDS ORDERED: EPOETIN ALFA-EPBX 10,000 UNIT/ML VIAL SUBCUT NR (21:15)
[2020-07-12] MEDS: FERROUS SULFATE 325MG TABLET PO SCH (22:36)
[2020-07-13] VITALS: BP 163/75
[2020-07-13 04:00] VITALS: BP 163/69
[2020-07-13] MEDS: MORPHINE SULFATE 2 MG/ML CPJ (NOT FOR IM USE) IV PRN (05:39)
[2020-07-13 06:39] LABS: BASOPHILS % 0.4 % (0.0-2.0); EOSINOPHILS % 0.5 % (0.0-5.0); LYMPHOCYTES % 8.1 % (20.0-50.0); MEAN CORPUSCULAR HEMOGLOBIN 28.8 pg (28.0-32.0); MEAN CORPUSCULAR VOLUME 87.9 fL (80.0-94.0); MEAN PLATELET VOLUME 9.1 fl (7.4-10.4); MONOCYTES % 3.6 % (2.0-8.0); NEUTROPHILS % 87.4 % (40.0-76.0); PLATELET 143 x1000/uL (130-400); RED BLOOD CELL COUNT 2.39 mill/uL (4.7-6.1); RED CELL DISTRIBUTION WIDTH 15.6 % (11.6-14.6)
[2020-07-13] MEDS: INSULIN LISPRO 100 UNITS/ML SUBCUT SCH ×4 (06:45→21:00)
[2020-07-13] MEDS: BLOOD SUGAR DIAGNOSTIC STRIP TEST SCH ×4 (06:45→20:55)
[2020-07-13 06:54] LABS: HEMOGLOBIN. 6.9 g/dL (14.0-18.0)
[2020-07-13] MEDS ORDERED: FERROUS SULFATE 325MG TABLET PO SCH (07:50)
[2020-07-13 08:00] VITALS: BP 161/71
[2020-07-13] MEDS: FUROSEMIDE 40MG TABLET PO SCH ×2 (09:36→20:55)
[2020-07-13] MEDS: FERROUS SULFATE 325MG TABLET PO SCH ×2 (09:36→17:25)
[2020-07-13] MEDS: MEGESTROL ACETATE 40MG TABLET PO SCH ×2 (09:37→18:32)
[2020-07-13] MEDS: FOLIC ACID 1MG TABLET PO SCH (09:37)
[2020-07-13 12:00] VITALS: BP 164/74
[2020-07-13] MEDS: HYDROCODONE/ACETAMINOPHEN 5/325MG TABLET PO PRN (12:09)
[2020-07-13] MEDS ORDERED: LIDOCAINE HCL 1% 20ML VIAL (Pyxis) INJ ONE ×2 (13:19→14:20)
[2020-07-13] MEDS ORDERED: HEPARIN 1000 UNITS/ML 10ML ONE (14:20)
[2020-07-13] MEDS ORDERED: IOHEXOL-300 50 ML BOTTLE IV ONE (14:46)
[2020-07-13 16:00] VITALS: BP 142/73
[2020-07-13 20:00] VITALS: BP 110/66
[2020-07-13] MEDS: CEFEPIME 1,000 MG in DEXTROSE 5% WATER 50 ML IV SCH (20:55)
[2020-07-14] VITALS (11 sets, daily range): BP systolic 133–196; BP diastolic 35–93
[2020-07-14] MEDS ORDERED: ACETAMINOPHEN 650MG/20.3ML UDC PO PRN (04:45)
[2020-07-14] MEDS ORDERED: DIPHENHYDRAMINE 50MG CAPSULE PO NR (04:45)
[2020-07-14 07:04] LABS: HEMATOCRIT. 22.8 % (42.0-52.0); HEMOGLOBIN. 7.7 g/dL (14.0-18.0); MEAN CORPUSCULAR HEMOGLOBIN 29.4 pg (28.0-32.0); MEAN PLATELET VOLUME 9.1 fl (7.4-10.4); PLATELET 136 x1000/uL (130-400); RED BLOOD CELL COUNT 2.62 mill/uL (4.7-6.1); RED CELL DISTRIBUTION WIDTH 15.4 % (11.6-14.6)
[2020-07-14 07:15] LABS: BASOPHILS % 0.7 % (0.0-2.0); LYMPHOCYTES % 13.1 % (20.0-50.0); NEUTROPHILS % 78.2 % (40.0-76.0)
[2020-07-14] MEDS: INSULIN LISPRO 100 UNITS/ML SUBCUT SCH ×4 (07:50→21:00)
[2020-07-14] MEDS: BLOOD SUGAR DIAGNOSTIC STRIP TEST SCH ×4 (08:06→21:00)
[2020-07-14] MEDS: MEGESTROL ACETATE 40MG TABLET PO SCH ×2 (09:58→17:30)
[2020-07-14] MEDS: FOLIC ACID 1MG TABLET PO SCH (09:58)
[2020-07-14] MEDS: FERROUS SULFATE 325MG TABLET PO SCH ×2 (09:58→17:30)
[2020-07-14] MEDS: FUROSEMIDE 40MG TABLET PO SCH (09:58)
[2020-07-14] MEDS ORDERED: VANCOMYCIN 500 MG PREMIX 100 ML IV SCH (12:00)
[2020-07-14] MEDS: CLONIDINE 0.1MG TABLET PO PRN ×2 (12:54→20:27)
[2020-07-14] MEDS: BENAZEPRIL 5MG TABLET PO SCH (17:31)
[2020-07-14] MEDS: HYDROCODONE/ACETAMINOPHEN 5/325MG TABLET PO PRN (20:36)
[2020-07-14] MEDS ORDERED: EPOETIN ALFA-EPBX 4,000 UNIT/ML VIAL SUBCUT NR (21:00)
[2020-07-15] VITALS: BP 183/90
[2020-07-15] MEDS: CLONIDINE 0.1MG TABLET PO PRN ×2 (03:49→23:52)
[2020-07-15] MEDS: FUROSEMIDE 40MG TABLET PO SCH ×3 (03:49→21:45)
[2020-07-15] MEDS: CEFEPIME 1,000 MG in DEXTROSE 5% WATER 50 ML IV SCH (03:50)
[2020-07-15 04:00] VITALS: BP 165/87
[2020-07-15 07:12] LABS: BASOPHILS % 0.7 % (0.0-2.0); EOSINOPHILS % 1.7 % (0.0-5.0); HEMATOCRIT. 23.9 % (42.0-52.0); HEMOGLOBIN. 8.3 g/dL (14.0-18.0); LYMPHOCYTES % 21.2 % (20.0-50.0); MEAN CORPUSCULAR HEMOGLOBIN 29.5 pg (28.0-32.0); MEAN CORPUSCULAR VOLUME 84.9 fL (80.0-94.0); MEAN PLATELET VOLUME 8.8 fl (7.4-10.4); MONOCYTES % 9.8 % (2.0-8.0); NEUTROPHILS % 66.6 % (40.0-76.0); PLATELET 149 x1000/uL (130-400); RED BLOOD CELL COUNT 2.82 mill/uL (4.7-6.1); RED CELL DISTRIBUTION WIDTH 15.3 % (11.6-14.6)
[2020-07-15] MEDS: BLOOD SUGAR DIAGNOSTIC STRIP TEST SCH ×4 (07:42→21:45)
[2020-07-15] MEDS: INSULIN LISPRO 100 UNITS/ML SUBCUT SCH ×4 (07:50→22:12)
[2020-07-15 08:00] VITALS: BP 158/85
[2020-07-15] MEDS: FOLIC ACID 1MG TABLET PO SCH (09:25)
[2020-07-15] MEDS: FERROUS SULFATE 325MG TABLET PO SCH ×2 (09:25→18:08)
[2020-07-15] MEDS: MEGESTROL ACETATE 40MG TABLET PO SCH (09:26)
[2020-07-15] MEDS: BENAZEPRIL 5MG TABLET PO SCH ×2 (09:26→18:08)
[2020-07-15] MEDS: HYDROCODONE/ACETAMINOPHEN 5/325MG TABLET PO PRN (09:33)
[2020-07-15 12:00] VITALS: BP 165/82
[2020-07-15 16:00] VITALS: BP 169/89
[2020-07-15] MEDS: MEROPENEM 500 MG in SODIUM CHLORIDE 0.9% 50 ML IV SCH (18:08)
[2020-07-15 20:00] VITALS: BP 156/34
[2020-07-15] MEDS ORDERED: EPOETIN ALFA-EPBX 4,000 UNIT/ML VIAL SUBCUT NR (21:00)
[2020-07-16] VITALS: BP 177/34
[2020-07-16 04:00] VITALS: BP 165/55
[2020-07-16] MEDS: BLOOD SUGAR DIAGNOSTIC STRIP TEST SCH ×4 (06:32→20:54)
[2020-07-16 07:18] LABS: BASOPHILS % 0.6 % (0.0-2.0); HEMOGLOBIN. 8.3 g/dL (14.0-18.0); LYMPHOCYTES % 23.7 % (20.0-50.0); MEAN CORPUSCULAR HEMOGLOBIN 28.8 pg (28.0-32.0); MEAN CORPUSCULAR VOLUME 86.9 fL (80.0-94.0); MEAN PLATELET VOLUME 8.6 fl (7.4-10.4); MONOCYTES % 8.1 % (2.0-8.0); NEUTROPHILS % 65.6 % (40.0-76.0); PLATELET 169 x1000/uL (130-400); RED BLOOD CELL COUNT 2.88 mill/uL (4.7-6.1); RED CELL DISTRIBUTION WIDTH 15.3 % (11.6-14.6)
[2020-07-16] MEDS: INSULIN LISPRO 100 UNITS/ML SUBCUT SCH ×4 (07:36→20:59)
[2020-07-16 07:53] VITALS: BP 171/85
[2020-07-16 08:00] VITALS: BP 171/85
[2020-07-16] MEDS: BENAZEPRIL 5MG TABLET PO SCH ×2 (08:03→17:54)
[2020-07-16] MEDS: FERROUS SULFATE 325MG TABLET PO SCH ×2 (09:26→17:54)
[2020-07-16] MEDS: FUROSEMIDE 40MG TABLET PO SCH ×2 (09:26→20:53)
[2020-07-16] MEDS: FOLIC ACID 1MG TABLET PO SCH (09:27)
[2020-07-16] MEDS: ERGOCALCIFEROL 50000UNITS CAPSULE PO SCH (09:27)
[2020-07-16] MEDS: MEGESTROL ACETATE 40MG TABLET PO SCH ×2 (09:27→17:54)
[2020-07-16] MEDS: HYDROCODONE/ACETAMINOPHEN 5/325MG TABLET PO PRN ×2 (09:27→17:54)
[2020-07-16] MEDS: CLONIDINE 0.1MG TABLET PO PRN ×2 (12:03→23:54)
[2020-07-16] MEDS: MEROPENEM 500 MG in SODIUM CHLORIDE 0.9% 50 ML IV SCH (14:00)
[2020-07-16 16:00] VITALS: BP 115/59
[2020-07-16 20:00] VITALS: BP 149/50
[2020-07-16] MEDS ORDERED: EPOETIN ALFA-EPBX 4,000 UNIT/ML VIAL SUBCUT NR (22:30)
[2020-07-17] VITALS (7 sets, daily range): BP systolic 126–213; BP diastolic 64–99
[2020-07-17] MEDS ORDERED: VANCOMYCIN 1 G PREMIX 200 ML IV SCH (02:45)
[2020-07-17] MEDS ORDERED: BENAZEPRIL 10MG TABLET PO NR (03:00)
[2020-07-17] MEDS: HYDROCODONE/ACETAMINOPHEN 5/325MG TABLET PO PRN ×2 (05:06→21:47)
[2020-07-17] MEDS ORDERED: AMLODIPINE 5MG TABLET PO NR (05:30)
[2020-07-17] MEDS: BLOOD SUGAR DIAGNOSTIC STRIP TEST SCH ×4 (06:27→21:47)
[2020-07-17] MEDS: CLONIDINE 0.1MG TABLET PO PRN (06:58)
[2020-07-17] MEDS: INSULIN LISPRO 100 UNITS/ML SUBCUT SCH ×4 (07:50→21:00)
[2020-07-17] MEDS ORDERED: IRON SUCROSE COMPLEX 100 MG in SODIUM CHLORIDE 0.9% 100 ML IV SCH (08:00)
[2020-07-17] MEDS ORDERED: AMLODIPINE 5MG TABLET PO SCH (09:00)
[2020-07-17] MEDS: FUROSEMIDE 40MG TABLET PO SCH ×2 (10:46→21:47)
[2020-07-17] MEDS: FOLIC ACID 1MG TABLET PO SCH (10:46)
[2020-07-17] MEDS: NIFEDIPINE XL 30MG TAB PO SCH (10:47)
[2020-07-17] MEDS: BENAZEPRIL 10MG TABLET PO SCH ×2 (11:14→21:46)
[2020-07-17] MEDS ORDERED: LOPERAMIDE HCL 2MG CAPSULE PO NR (12:45)
[2020-07-17] MEDS: MEROPENEM 500 MG in SODIUM CHLORIDE 0.9% 50 ML IV SCH (14:31)
[2020-07-17] MEDS ORDERED: VANCOMYCIN 750 MG PREMIX 150 ML IV SCH (16:00)
[2020-07-17] MEDS ORDERED: EPOETIN ALFA-EPBX 4,000 UNIT/ML VIAL SUBCUT NR (23:00)
[2020-07-18 04:00] VITALS: BP 144/72
[2020-07-18 05:49] LABS: BASOPHILS % 0.8 % (0.0-2.0); EOSINOPHILS % 2.6 % (0.0-5.0); HEMATOCRIT. 26.2 % (42.0-52.0); HEMOGLOBIN. 9.1 g/dL (14.0-18.0); LYMPHOCYTES % 21.7 % (20.0-50.0); MEAN CORPUSCULAR HEMOGLOBIN 29.8 pg (28.0-32.0); MEAN CORPUSCULAR VOLUME 86.1 fL (80.0-94.0); MEAN PLATELET VOLUME 8.1 fl (7.4-10.4); MONOCYTES % 6.1 % (2.0-8.0); NEUTROPHILS % 68.8 % (40.0-76.0); PLATELET 193 x1000/uL (130-400); RED BLOOD CELL COUNT 3.04 mill/uL (4.7-6.1); RED CELL DISTRIBUTION WIDTH 15.4 % (11.6-14.6)
[2020-07-18] MEDS: BLOOD SUGAR DIAGNOSTIC STRIP TEST SCH ×4 (06:57→21:11)
[2020-07-18] MEDS: INSULIN LISPRO 100 UNITS/ML SUBCUT SCH ×4 (07:47→21:00)
[2020-07-18 08:00] VITALS: BP 142/76
[2020-07-18] MEDS: NIFEDIPINE XL 30MG TAB PO SCH (09:20)
[2020-07-18] MEDS: BENAZEPRIL 10MG TABLET PO SCH ×2 (09:20→21:11)
[2020-07-18] MEDS: FOLIC ACID 1MG TABLET PO SCH (09:20)
[2020-07-18] MEDS: HYDROCODONE/ACETAMINOPHEN 5/325MG TABLET PO PRN (09:21)
[2020-07-18] MEDS: FUROSEMIDE 40MG TABLET PO SCH ×2 (09:21→21:11)
[2020-07-18] MEDS: IRON SUCROSE COMPLEX 100 MG/5 ML ML IV SCH (09:22)
[2020-07-18 16:00] VITALS: BP 116/66
[2020-07-18] MEDS: MEROPENEM 500 MG in SODIUM CHLORIDE 0.9% 50 ML IV SCH (16:05)
[2020-07-18] MEDS: LIDOCAINE 5% PATCH TOP SCH (16:06)
[2020-07-18 20:00] VITALS: BP 150/78
[2020-07-18] MEDS ORDERED: EPOETIN ALFA-EPBX 4,000 UNIT/ML VIAL SUBCUT NR (22:00)
[2020-07-19] VITALS: BP 133/76
[2020-07-19 04:00] VITALS: BP 168/79
[2020-07-19 06:32] LABS: BASOPHILS % 1.2 % (0.0-2.0); EOSINOPHILS % 3.7 % (0.0-5.0); HEMATOCRIT. 28.2 % (42.0-52.0); HEMOGLOBIN. 9.6 g/dL (14.0-18.0); LYMPHOCYTES % 23.1 % (20.0-50.0); MEAN CORPUSCULAR HEMOGLOBIN 30.1 pg (28.0-32.0); MEAN CORPUSCULAR VOLUME 88.8 fL (80.0-94.0); MEAN PLATELET VOLUME 7.9 fl (7.4-10.4); MONOCYTES % 8.2 % (2.0-8.0); NEUTROPHILS % 63.8 % (40.0-76.0); PLATELET 227 x1000/uL (130-400); RED BLOOD CELL COUNT 3.17 mill/uL (4.7-6.1); RED CELL DISTRIBUTION WIDTH 16.2 % (11.6-14.6)
[2020-07-19] MEDS: BLOOD SUGAR DIAGNOSTIC STRIP TEST SCH ×4 (07:20→21:08)
[2020-07-19] MEDS: INSULIN LISPRO 100 UNITS/ML SUBCUT SCH ×3 (07:50→17:50)
[2020-07-19 08:00] VITALS: BP 142/85
[2020-07-19] MEDS: BENAZEPRIL 10MG TABLET PO SCH ×2 (10:04→20:58)
[2020-07-19] MEDS: LIDOCAINE 5% PATCH TOP SCH (10:04)
[2020-07-19] MEDS: FUROSEMIDE 40MG TABLET PO SCH ×2 (10:04→20:58)
[2020-07-19] MEDS: NIFEDIPINE XL 30MG TAB PO SCH (10:04)
[2020-07-19] MEDS: ACETAMINOPHEN 650MG/20.3ML UDC PO PRN ×2 (10:06→20:59)
[2020-07-19 12:00] VITALS: BP 183/88
[2020-07-19] MEDS: IRON SUCROSE COMPLEX 100 MG/5 ML ML IV SCH (14:14)
[2020-07-19] MEDS: LOPERAMIDE HCL 2MG CAPSULE PO PRN (14:14)
[2020-07-19] MEDS: DICLOFENAC SODIUM 0.1% OPHTH 2.5 ML BOTTLE BOTHEYE SCH (14:24)
[2020-07-19 16:00] VITALS: BP 108/60
[2020-07-19] MEDS: MEROPENEM 500 MG in SODIUM CHLORIDE 0.9% 50 ML IV SCH (19:08)
[2020-07-19 20:00] VITALS: BP 141/86
[2020-07-19] MEDS: ZOLPIDEM TARTRATE 5MG TABLET PO PRN (20:58)
[2020-07-19] MEDS ORDERED: EPOETIN ALFA-EPBX 4,000 UNIT/ML VIAL SUBCUT SCH (21:00)
[2020-07-20] VITALS: BP 100/70
[2020-07-20 04:00] VITALS: BP 156/76
[2020-07-20] MEDS: BLOOD SUGAR DIAGNOSTIC STRIP TEST SCH ×4 (07:20→21:00)
[2020-07-20] MEDS: INSULIN LISPRO 100 UNITS/ML SUBCUT SCH ×4 (07:50→21:00)
[2020-07-20 08:00] VITALS: BP 177/90
[2020-07-20] MEDS: NIFEDIPINE XL 30MG TAB PO SCH (09:53)
[2020-07-20] MEDS: LOPERAMIDE HCL 2MG CAPSULE PO PRN ×2 (09:53→18:29)
[2020-07-20] MEDS: BENAZEPRIL 10MG TABLET PO SCH ×2 (09:53→22:52)
[2020-07-20] MEDS: IRON SUCROSE COMPLEX 100 MG/5 ML ML IV SCH (09:54)
[2020-07-20] MEDS: LIDOCAINE 5% PATCH TOP SCH (09:54)
[2020-07-20] MEDS: DICLOFENAC SODIUM 0.1% OPHTH 2.5 ML BOTTLE BOTHEYE SCH (09:54)
[2020-07-20] MEDS: FUROSEMIDE 40MG TABLET PO SCH ×2 (09:57→22:51)
[2020-07-20 12:00] VITALS: BP 157/82
[2020-07-20] MEDS: HYDROCODONE/ACETAMINOPHEN 5/325MG TABLET PO PRN ×2 (18:30→22:52)
[2020-07-20] MEDS: MEROPENEM 500 MG in SODIUM CHLORIDE 0.9% 50 ML IV SCH (18:30)
[2020-07-20 20:00] VITALS: BP 151/81
[2020-07-20] MEDS: ZOLPIDEM TARTRATE 5MG TABLET PO PRN (22:51)
[2020-07-21] VITALS: BP 175/88
[2020-07-21] MEDS: CLONIDINE 0.1MG TABLET PO PRN (00:24)
[2020-07-21] MEDS: LOPERAMIDE HCL 2MG CAPSULE PO PRN ×3 (00:29→18:19)
[2020-07-21 04:00] VITALS: BP 150/79
[2020-07-21] MEDS: HYDROCODONE/ACETAMINOPHEN 5/325MG TABLET PO PRN ×3 (05:44→18:35)
[2020-07-21] MEDS: INSULIN LISPRO 100 UNITS/ML SUBCUT SCH ×4 (07:45→20:55)
[2020-07-21] MEDS: BLOOD SUGAR DIAGNOSTIC STRIP TEST SCH ×4 (07:45→20:45)
[2020-07-21 08:15] VITALS: BP 121/77
[2020-07-21 08:58] LABS: BASOPHILS % 1.1 % (0.0-2.0); EOSINOPHILS % 4.4 % (0.0-5.0); HEMATOCRIT. 26.6 % (42.0-52.0); HEMOGLOBIN. 8.9 g/dL (14.0-18.0); LYMPHOCYTES % 35.8 % (20.0-50.0); MEAN CORPUSCULAR VOLUME 90.1 fL (80.0-94.0); MEAN PLATELET VOLUME 7.3 fl (7.4-10.4); MONOCYTES % 9.9 % (2.0-8.0); NEUTROPHILS % 48.8 % (40.0-76.0); PLATELET 270 x1000/uL (130-400); RED BLOOD CELL COUNT 2.95 mill/uL (4.7-6.1); RED CELL DISTRIBUTION WIDTH 17.2 % (11.6-14.6)
[2020-07-21] MEDS: NIFEDIPINE XL 30MG TAB PO SCH (09:00)
[2020-07-21] MEDS: BENAZEPRIL 10MG TABLET PO SCH ×2 (09:00→20:44)
[2020-07-21] MEDS: DICLOFENAC SODIUM 0.1% OPHTH 2.5 ML BOTTLE BOTHEYE SCH (11:55)
[2020-07-21] MEDS: FUROSEMIDE 40MG TABLET PO SCH ×2 (11:55→20:43)
[2020-07-21] MEDS: LIDOCAINE 5% PATCH TOP SCH (11:56)
[2020-07-21] MEDS: IRON SUCROSE COMPLEX 100 MG/5 ML ML IV SCH (11:56)
[2020-07-21 12:00] VITALS: BP 158/77
[2020-07-21] MEDS ORDERED: VANCOMYCIN 500 MG PREMIX 100 ML IV SCH (13:00)
[2020-07-21 16:00] VITALS: BP 153/69
[2020-07-21] MEDS: MEROPENEM 500 MG in SODIUM CHLORIDE 0.9% 50 ML IV SCH (16:33)
[2020-07-21 20:00] VITALS: BP 148/45
[2020-07-21] MEDS: ZOLPIDEM TARTRATE 5MG TABLET PO PRN (20:43)
[2020-07-21] MEDS ORDERED: EPOETIN ALFA-EPBX 4,000 UNIT/ML VIAL SUBCUT SCH (21:00)
[2020-07-22 00:52] VITALS: BP 151/43
[2020-07-22 04:00] VITALS: BP 157/45
[2020-07-22] MEDS: BLOOD SUGAR DIAGNOSTIC STRIP TEST SCH ×3 (06:20→21:00)
[2020-07-22] MEDS: INSULIN LISPRO 100 UNITS/ML SUBCUT SCH ×2 (07:50→12:50)
[2020-07-22 08:00] VITALS: BP 111/81
[2020-07-22] MEDS: DICLOFENAC SODIUM 0.1% OPHTH 2.5 ML BOTTLE BOTHEYE SCH (09:00)
[2020-07-22] MEDS: LIDOCAINE 5% PATCH TOP SCH (10:00)
[2020-07-22] MEDS: NIFEDIPINE XL 30MG TAB PO SCH (10:00)
[2020-07-22] MEDS: BENAZEPRIL 10MG TABLET PO SCH ×2 (10:00→22:06)
[2020-07-22] MEDS: FUROSEMIDE 40MG TABLET PO SCH ×2 (10:01→22:06)
[2020-07-22] MEDS: IRON SUCROSE COMPLEX 100 MG/5 ML ML IV SCH (13:47)
[2020-07-22] MEDS: LOPERAMIDE HCL 2MG CAPSULE PO PRN ×2 (13:52→22:10)
[2020-07-22] MEDS: MEROPENEM 500 MG in SODIUM CHLORIDE 0.9% 50 ML IV SCH (14:00)
[2020-07-22] MEDS ORDERED: FURO40TA5 PO (14:45)
[2020-07-22] MEDS ORDERED: BENA10TA74 PO (14:45)
[2020-07-22] MEDS ORDERED: NIFE-33 PO (14:45)
[2020-07-22 20:00] VITALS: BP 107/69
[2020-07-22] MEDS: ZOLPIDEM TARTRATE 5MG TABLET PO PRN (22:05)
[2020-07-22] MEDS: HYDROCODONE/ACETAMINOPHEN 5/325MG TABLET PO PRN (23:59)
[2020-07-23] VITALS (32 sets, daily range): BP systolic 116–185; BP diastolic 53–96
[2020-07-23] MEDS: CLONIDINE 0.1MG TABLET PO PRN (06:22)
[2020-07-23] MEDS: HYDROCODONE/ACETAMINOPHEN 5/325MG TABLET PO PRN ×2 (06:23→23:37)
[2020-07-23] MEDS: BLOOD SUGAR DIAGNOSTIC STRIP TEST SCH ×4 (07:20→21:00)
[2020-07-23] MEDS ORDERED: LIDOCAINE HCL 1% 20ML VIAL (Pyxis) INJ ONE (07:28)
[2020-07-23] MEDS ORDERED: HEPARIN 1000 UNITS/ML 10ML ONE (07:29)
[2020-07-23] MEDS: INSULIN LISPRO 100 UNITS/ML SUBCUT SCH ×4 (07:50→21:00)
[2020-07-23] MEDS ORDERED: FENTANYL CITRATE/PF 50MCG/ML 2ML VIAL ONE (08:06)
[2020-07-23] MEDS ORDERED: FENTANYL CITRATE/PF 50MCG/ML 2ML VIAL IV SCH (08:30)
[2020-07-23] MEDS: NIFEDIPINE XL 30MG TAB PO SCH (09:00)
[2020-07-23] MEDS: BENAZEPRIL 10MG TABLET PO SCH ×2 (09:00→22:42)
[2020-07-23] MEDS: ERGOCALCIFEROL 50000UNITS CAPSULE PO SCH (09:28)
[2020-07-23] MEDS: FUROSEMIDE 40MG TABLET PO SCH ×2 (09:29→22:42)
[2020-07-23] MEDS: LOPERAMIDE HCL 2MG CAPSULE PO PRN ×2 (09:43→18:02)
[2020-07-23] MEDS: LIDOCAINE 5% PATCH TOP SCH (09:49)
[2020-07-23] MEDS: DICLOFENAC SODIUM 0.1% OPHTH 2.5 ML BOTTLE BOTHEYE SCH (09:49)
[2020-07-23] MEDS: MEROPENEM 500 MG in SODIUM CHLORIDE 0.9% 50 ML IV SCH (18:53)
[2020-07-23] MEDS: ZOLPIDEM TARTRATE 5MG TABLET PO PRN (22:42)
[2020-07-24] VITALS: BP 130/31
[2020-07-24] MEDS ORDERED: EPOETIN ALFA-EPBX 4,000 UNIT/ML VIAL SUBCUT NR (00:30)
[2020-07-24] MEDS: BLOOD SUGAR DIAGNOSTIC STRIP TEST SCH ×3 (07:13→17:40)
[2020-07-24] MEDS: INSULIN LISPRO 100 UNITS/ML SUBCUT SCH ×3 (07:25→17:40)
[2020-07-24 08:00] VITALS: BP 187/85
[2020-07-24] MEDS: BENAZEPRIL 10MG TABLET PO SCH (09:22)
[2020-07-24] MEDS: NIFEDIPINE XL 30MG TAB PO SCH (09:23)
[2020-07-24] MEDS: FUROSEMIDE 40MG TABLET PO SCH (09:23)
[2020-07-24] MEDS: DICLOFENAC SODIUM 0.1% OPHTH 2.5 ML BOTTLE BOTHEYE SCH (09:24)
[2020-07-24] MEDS: LIDOCAINE 5% PATCH TOP SCH (09:28)
[2020-07-24 12:00] VITALS: BP 169/35
[2020-07-24] MEDS: CLONIDINE 0.1MG TABLET PO PRN (12:12)
[2020-07-24] MEDS: MEROPENEM 500 MG in SODIUM CHLORIDE 0.9% 50 ML IV SCH (14:22)
[2020-07-24] MEDS ORDERED: IRON SUCROSE COMPLEX 100 MG/5 ML ML IV SCH (15:30)
[2020-07-24 16:00] VITALS: BP 127/41
[2020-07-24] MEDS: LOPERAMIDE HCL 2MG CAPSULE PO PRN (17:24)
[2020-07-24 19:21] VITALS: BP_DIAS 41
== END 2020-07-24 20:20 | disposition home health service (06) | DRG 711 ==
LOC: ER 07:20 → 8WST 10:51 → EDBEDREQTM 11:00 → EDBEDREQ 11:00 → ENRESERV 13:27 → 6EST 15:28 → CVICU 06-05 13:30 → 6EST 06-07 19:28
PROVIDERS: ADMIT Internal Medicine; ATTEND Internal Medicine
PROC: 00BX3ZX Excision of Thoracic Spinal Cord, Percutaneous Approach, Diagnostic (ICD-10-PCS; 2020-06-04)
PROC: 0JPT3XZ Removal of Tunneled Vascular Access Device from Trunk Subcutaneous Tissue and Fascia, Percutaneous Approach (ICD-10-PCS; 2020-06-04)
PROC: 5A1D70Z Performance of Urinary Filtration, Intermittent, Less than 6 Hours Per Day (ICD-10-PCS; 2020-06-04)
PROC: 0RG70J1 Fusion of 2 to 7 Thoracic Vertebral Joints with Synthetic Substitute, Posterior Approach, Posterior Column, Open Approach (ICD-10-PCS; principal; 2020-06-05)
PROC: 0RGA0J1 Fusion of Thoracolumbar Vertebral Joint with Synthetic Substitute, Posterior Approach, Posterior Column, Open Approach (ICD-10-PCS; 2020-06-05)
PROC: 00NX0ZZ Release Thoracic Spinal Cord, Open Approach (ICD-10-PCS; 2020-06-05)
PROC: 00NY0ZZ Release Lumbar Spinal Cord, Open Approach (ICD-10-PCS; 2020-06-05)
PROC: 4A11X4G Monitoring of Peripheral Nervous Electrical Activity, Intraoperative, External Approach (ICD-10-PCS; 2020-06-05)
PROC: 30233M1 Transfusion of Nonautologous Plasma Cryoprecipitate into Peripheral Vein, Percutaneous Approach (ICD-10-PCS; 2020-06-05)
PROC: 30233N1 Transfusion of Nonautologous Red Blood Cells into Peripheral Vein, Percutaneous Approach (ICD-10-PCS; 2020-06-05)
PROC: 0BH17EZ Insertion of Endotracheal Airway into Trachea, Via Natural or Artificial Opening (ICD-10-PCS; 2020-06-05)
PROC: 5A1945Z Respiratory Ventilation, 24-96 Consecutive Hours (ICD-10-PCS; 2020-06-05)
PROC: 06HY33Z Insertion of Infusion Device into Lower Vein, Percutaneous Approach (ICD-10-PCS; 2020-06-06)
PROC: B54BZZA Ultrasonography of Right Lower Extremity Veins, Guidance (ICD-10-PCS; 2020-06-06)
PROC: 5A1D70Z Performance of Urinary Filtration, Intermittent, Less than 6 Hours Per Day (ICD-10-PCS; 2020-06-08)
PROC: 5A1D70Z Performance of Urinary Filtration, Intermittent, Less than 6 Hours Per Day (ICD-10-PCS; 2020-06-10)
PROC: 5A1D80Z Performance of Urinary Filtration, Prolonged Intermittent, 6-18 hours Per Day (ICD-10-PCS; 2020-06-14)
PROC: 5A1D70Z Performance of Urinary Filtration, Intermittent, Less than 6 Hours Per Day (ICD-10-PCS; 2020-06-16)
PROC: 5A1D70Z Performance of Urinary Filtration, Intermittent, Less than 6 Hours Per Day (ICD-10-PCS; 2020-06-18)
PROC: 5A1D70Z Performance of Urinary Filtration, Intermittent, Less than 6 Hours Per Day (ICD-10-PCS; 2020-06-21)
PROC: 5A1D70Z Performance of Urinary Filtration, Intermittent, Less than 6 Hours Per Day (ICD-10-PCS; 2020-06-23)
PROC: 5A1D70Z Performance of Urinary Filtration, Intermittent, Less than 6 Hours Per Day (ICD-10-PCS; 2020-06-25)
PROC: 5A1D70Z Performance of Urinary Filtration, Intermittent, Less than 6 Hours Per Day (ICD-10-PCS; 2020-06-28)
PROC: 5A1D70Z Performance of Urinary Filtration, Intermittent, Less than 6 Hours Per Day (ICD-10-PCS; 2020-06-30)
PROC: 5A1D70Z Performance of Urinary Filtration, Intermittent, Less than 6 Hours Per Day (ICD-10-PCS; 2020-07-02)
PROC: B51W1ZZ Fluoroscopy of Dialysis Shunt/Fistula using Low Osmolar Contrast (ICD-10-PCS; 2020-07-05)
PROC: B54NZZA Ultrasonography of Left Upper Extremity Veins, Guidance (ICD-10-PCS; 2020-07-05)
PROC: 05LC0ZZ Occlusion of Left Basilic Vein, Open Approach (ICD-10-PCS; 2020-07-07)
PROC: 03180AD Bypass Left Brachial Artery to Upper Arm Vein with Autologous Arterial Tissue, Open Approach (ICD-10-PCS; 2020-07-09)
PROC: 5A1D70Z Performance of Urinary Filtration, Intermittent, Less than 6 Hours Per Day (ICD-10-PCS; 2020-07-09)
PROC: 5A1D70Z Performance of Urinary Filtration, Intermittent, Less than 6 Hours Per Day (ICD-10-PCS; 2020-07-12)
PROC: 02H633Z Insertion of Infusion Device into Right Atrium, Percutaneous Approach (ICD-10-PCS; 2020-07-13)
PROC: B518ZZA Fluoroscopy of Superior Vena Cava, Guidance (ICD-10-PCS; 2020-07-13)
PROC: 5A1D70Z Performance of Urinary Filtration, Intermittent, Less than 6 Hours Per Day (ICD-10-PCS; 2020-07-13)
PROC: 5A1D70Z Performance of Urinary Filtration, Intermittent, Less than 6 Hours Per Day (ICD-10-PCS; 2020-07-16)
PROC: 5A1D70Z Performance of Urinary Filtration, Intermittent, Less than 6 Hours Per Day (ICD-10-PCS; 2020-07-19)
PROC: 5A1D70Z Performance of Urinary Filtration, Intermittent, Less than 6 Hours Per Day (ICD-10-PCS; 2020-07-21)
PROC: 02PAX3Z Removal of Infusion Device from Heart, External Approach (ICD-10-PCS; 2020-07-23)
PROC: 02HV33Z Insertion of Infusion Device into Superior Vena Cava, Percutaneous Approach (ICD-10-PCS; 2020-07-23)
PROC: 0JH63XZ Insertion of Tunneled Vascular Access Device into Chest Subcutaneous Tissue and Fascia, Percutaneous Approach (ICD-10-PCS; 2020-07-23)
PROC: B518ZZA Fluoroscopy of Superior Vena Cava, Guidance (ICD-10-PCS; 2020-07-23)
PROC: 5A1D70Z Performance of Urinary Filtration, Intermittent, Less than 6 Hours Per Day (ICD-10-PCS; 2020-07-23)
DX: T80.219A Unspecified infection due to central venous catheter, initial encounter (principal); A41.81 Sepsis due to Enterococcus; J96.00 Acute respiratory failure, unspecified whether with hypoxia or hypercapnia; G06.1 Intraspinal abscess and granuloma; E11.22 Type 2 diabetes mellitus with diabetic chronic kidney disease; G82.20 Paraplegia, unspecified; M48.56XA Collapsed vertebra, not elsewhere classified, lumbar region, initial encounter for fracture; I12.0 Hypertensive chronic kidney disease with stage 5 chronic kidney disease or end stage renal disease; E11.69 Type 2 diabetes mellitus with other specified complication; D63.8 Anemia in other chronic diseases classified elsewhere; F12.90 Cannabis use, unspecified, uncomplicated; G93.89 Other specified disorders of brain; K57.30 Diverticulosis of large intestine without perforation or abscess without bleeding; M46.24 Osteomyelitis of vertebra, thoracic region; M46.44 Discitis, unspecified, thoracic region; N18.6 End stage renal disease; Y84.8 Other medical procedures as the cause of abnormal reaction of the patient, or of later complication, without mention of misadventure at the time of the procedure; D63.1 Anemia in chronic kidney disease; Z20.822 Contact with and (suspected) exposure to COVID-19; N39.0 Urinary tract infection, site not specified; E53.8 Deficiency of other specified B group vitamins; E55.9 Vitamin D deficiency, unspecified; I31.3 Pericardial effusion (noninflammatory); Z99.2 Dependence on renal dialysis; I25.2 Old myocardial infarction; Z79.899 Other long term (current) drug therapy; Z82.49 Family history of ischemic heart disease and other diseases of the circulatory system; Z83.3 Family history of diabetes mellitus; Z86.61 Personal history of infections of the central nervous system; T82.898A Other specified complication of vascular prosthetic devices, implants and grafts, initial encounter; B96.89 Other specified bacterial agents as the cause of diseases classified elsewhere; B96.20 Unspecified Escherichia coli [E. coli] as the cause of diseases classified elsewhere
CPT/HCPCS: 36415; 36556; 36558; 36589; 36600; 36901; 36907; 71045; 72070; 72128; 72131; 72146; 72148; 74176; 76000; 76937; 77001; 77012; 80048; 80053; 80061; 80202; 80305; 81003; 82306; 82375; 82607; 82746; 82805; 82962; 83036; 84145; 84443; 84484; 85025; 85027; 85651; 86705; 86803; 86850; 86900; 86920; 86927; 87070; 87075; 87077; 87102; 87116; 87186; 87340; 87426; 88304; 88311; 90585; 90743; 93005; 93306; 93970; 93971; 94003; 94640; 97116; 97162; 97164; 97166; 97168; 97530; 97535; 99152; 99153; 99285; C1713; C1725; C1750; C1752; C1766; C1769; C1887; J0360; J0692; J0885; J1100; J1200; J1642; J1644; J1815; J2185; J2250; J2270; J2405; J2543; J2704; J2795; J3010; J3370; J3490; J7030; J7040; J7042; J7050; J7060; P9016; P9017; Q0163; Q9967; U0003; C1762; G0500

== ENCOUNTER 2020-11-12 22:01 | Inpatient (IN) | payer MEDICAID, OTHER ==
[~2020-11-12] VITALS: Ht 157.5 cm; Wt 49.0 kg
[~2020-11-12 22:01] MED LIST changes: +BENA10TA74 PO; -DIPH1TAB PO; -DIPH50CA38 PO; +ERGO80009 PO; -FERR325T23 PO; +FURO40TA5 PO; +NIFE-33 PO
[2020-11-13 02:08] LABS: EOSINOPHILS % 1.4 % (0.0-5.0); HEMATOCRIT. 21.7 % (42.0-52.0); HEMOGLOBIN. 7.5 g/dL (14.0-18.0); LYMPHOCYTES % 19.5 % (20.0-50.0); MEAN CORPUSCULAR HEMOGLOBIN 31.7 pg (28.0-32.0); MEAN CORPUSCULAR VOLUME 92.3 fL (80.0-94.0); MEAN PLATELET VOLUME 6.9 fl (7.4-10.4); MONOCYTES % 5.3 % (2.0-8.0); NEUTROPHILS % 72.8 % (40.0-76.0); PLATELET 287 x1000/uL (130-400); RED BLOOD CELL COUNT 2.35 mill/uL (4.7-6.1); RED CELL DISTRIBUTION WIDTH 15.3 % (11.6-14.6)
[2020-11-13 02:10] LABS: CLARITY URINE CLOUDY (CLEAR); COLOR URINE YELLOW (YELLOW); KETONES URINE NEGATIVE (NEGATIVE); LEUKOCYTE ESTERASE URINE 1+ (NEGATIVE); NITRITE URINE NEGATIVE (NEGATIVE); OCCULT BLOOD URINE TRACE (NEGATIVE); PH URINE 8.5 (4.5-8.0); PROTEIN URINE 4+ (NEGATIVE); SPECIFIC GRAVITY URINE 1.021 (1.005-1.030); UROBILINOGEN URINE 0.2 E.U./dL (0.2-1.0)
[2020-11-13 02:11] LABS: CHLORIDE 99 mEq/L (98-107)
[2020-11-13] MEDS ORDERED: MEROPENEM 1,000 MG in SODIUM CHLORIDE 0.9% 100 ML IV NR (05:30)
[2020-11-13] MEDS ORDERED: ACETAMINOPHEN 325MG TABLET PO PRN (08:30)
[2020-11-13] MEDS ORDERED: MEROPENEM 1,000 MG in SODIUM CHLORIDE 0.9% 100 ML IV SCH (08:30)
[2020-11-13] MEDS ORDERED: ONDANSETRON HCL 4MG/2ML INJ IV PRN (08:30)
[2020-11-13] MEDS: AMLODIPINE 10MG TABLET PO SCH (09:15)
[2020-11-13 21:25] VITALS: BP 167/84
[2020-11-13] MEDS ORDERED: AMLO10TA80 PO (23:01)
[2020-11-13] MEDS ORDERED: ALPR-339 PO (23:01)
[2020-11-13] MEDS ORDERED: FERR325T6 PO (23:01)
[2020-11-13] MEDS ORDERED: HYDR-4001 PO (23:01)
[2020-11-13] MEDS ORDERED: ONDA4TAB50 PO (23:01)
[2020-11-13] MEDS ORDERED: DIPH1TAB24 PO (23:01)
[2020-11-13] MEDS ORDERED: BENA10TA74 PO (23:01)
[2020-11-13] MEDS ORDERED: LISI10TA26 PO (23:01)
[2020-11-13] MEDS ORDERED: DIPH50CA38 PO (23:01)
[2020-11-13] MEDS ORDERED: CEFTRIAXONE 1 G PREMIX 50 ML IV SCH (23:15)
[2020-11-13] MEDS ORDERED: AMLODIPINE 10MG TABLET PO NR (23:30)
[2020-11-13] MEDS ORDERED: ALPRAZOLAM 0.25 MG TABLET PO PRN (23:30)
[2020-11-13] MEDS ORDERED: AMLODIPINE 10MG TABLET PO SCH (23:30)
[2020-11-13] MEDS ORDERED: ONDANSETRON HCL 4MG TABLET PO PRN (23:30)
[2020-11-13] MEDS: LISINOPRIL 10MG TABLET PO SCH (23:39)
[2020-11-13] MEDS: HYDROCODONE/ACETAMINOPHEN 5/325MG TABLET PO PRN (23:40)
[2020-11-14] VITALS (9 sets, daily range): BP systolic 131–157; BP diastolic 65–79
[2020-11-14] MEDS: LOPERAMIDE HCL 2MG CAPSULE PO PRN (01:03)
[2020-11-14] MEDS ORDERED: MEROPENEM 500MG in NORMAL SALINE 50ML IV SCH (06:00)
[2020-11-14 06:03] LABS: EOSINOPHILS % 1.9 % (0.0-5.0); HEMATOCRIT. 21.3 % (42.0-52.0); HEMOGLOBIN. 7.4 g/dL (14.0-18.0); LYMPHOCYTES % 29.8 % (20.0-50.0); MEAN CORPUSCULAR HEMOGLOBIN 31.8 pg (28.0-32.0); MEAN CORPUSCULAR VOLUME 92.1 fL (80.0-94.0); MEAN PLATELET VOLUME 7.2 fl (7.4-10.4); MONOCYTES % 7.8 % (2.0-8.0); NEUTROPHILS % 59.5 % (40.0-76.0); PLATELET 286 x1000/uL (130-400); RED BLOOD CELL COUNT 2.32 mill/uL (4.7-6.1); RED CELL DISTRIBUTION WIDTH 15.4 % (11.6-14.6)
[2020-11-14 06:14] LABS: CHLORIDE 103 mEq/L (98-107)
[2020-11-14 06:26] LABS: LDL CHOLESTEROL 78 mg/dL (5-100); PHOSPHORUS 4.8 mg/dL (2.5-4.9)
[2020-11-14 06:28] LABS: HDL CHOLESTEROL 47 mg/dL (40-59)
[2020-11-14] MEDS: FOLIC ACID/VITAMIN B COMP W-C TABLET PO SCH (09:05)
[2020-11-14] MEDS: AMLODIPINE 10MG TABLET PO SCH (09:07)
[2020-11-14] MEDS: LISINOPRIL 10MG TABLET PO SCH (09:08)
[2020-11-14] MEDS: SEVELAMER CARBONATE 800 MG TABLET PO SCH ×3 (09:08→17:21)
[2020-11-14] MEDS: FERROUS SULFATE 325MG TABLET PO SCH ×3 (09:08→17:21)
[2020-11-14] MEDS: AMOXICILLIN 500 MG CAPSULE PO SCH (11:32)
[2020-11-14] MEDS: DIPHENHYDRAMINE 50MG CAPSULE PO SCH (21:25)
[2020-11-15] VITALS: BP 126/70
[2020-11-15 04:00] VITALS: BP 142/74
[2020-11-15 08:00] VITALS: BP 147/74
[2020-11-15] MEDS: FERROUS SULFATE 325MG TABLET PO SCH ×3 (09:27→18:10)
[2020-11-15] MEDS: FOLIC ACID/VITAMIN B COMP W-C TABLET PO SCH (09:27)
[2020-11-15] MEDS: LISINOPRIL 10MG TABLET PO SCH (09:27)
[2020-11-15] MEDS: AMLODIPINE 10MG TABLET PO SCH (09:28)
[2020-11-15] MEDS: HYDROCODONE/ACETAMINOPHEN 5/325MG TABLET PO PRN ×2 (09:29→18:16)
[2020-11-15] MEDS: LOPERAMIDE HCL 2MG CAPSULE PO PRN (09:32)
[2020-11-15] MEDS: SEVELAMER CARBONATE 800 MG TABLET PO SCH ×3 (09:32→18:10)
[2020-11-15 12:00] VITALS: BP 122/68
[2020-11-15] MEDS: AMOXICILLIN 500 MG CAPSULE PO SCH (12:57)
[2020-11-15 16:00] VITALS: BP 154/72
[2020-11-15 16:40] LABS: HEPATITIS B SURFACE ANTIGEN NEGATIVE
[2020-11-15 17:10] LABS: HEPATITIS A AB IGM NEGATIVE (NEGATIVE)
[2020-11-15 20:00] VITALS: BP 140/60
[2020-11-15] MEDS ORDERED: EPOETIN ALFA-EPBX 4,000 UNIT/ML VIAL SUBCUT NR (21:00)
[2020-11-15] MEDS: DIPHENHYDRAMINE 50MG CAPSULE PO SCH (22:19)
[2020-11-16] VITALS (11 sets, daily range): BP systolic 124–155; BP diastolic 66–84
[2020-11-16 08:26] LABS: EOSINOPHILS % 1.3 % (0.0-5.0); LYMPHOCYTES % 24.8 % (20.0-50.0); MEAN CORPUSCULAR HEMOGLOBIN 31.6 pg (28.0-32.0); MEAN CORPUSCULAR VOLUME 91.7 fL (80.0-94.0); MEAN PLATELET VOLUME 6.7 fl (7.4-10.4); NEUTROPHILS % 65.9 % (40.0-76.0); PLATELET 262 x1000/uL (130-400); RED BLOOD CELL COUNT 2.09 mill/uL (4.7-6.1)
[2020-11-16 08:32] LABS: HEMATOCRIT. 19.2 % (42.0-52.0); HEMOGLOBIN. 6.6 g/dL (14.0-18.0)
[2020-11-16] MEDS: FERROUS SULFATE 325MG TABLET PO SCH ×3 (08:53→18:04)
[2020-11-16] MEDS: FOLIC ACID/VITAMIN B COMP W-C TABLET PO SCH (08:54)
[2020-11-16] MEDS: AMLODIPINE 10MG TABLET PO SCH (08:54)
[2020-11-16] MEDS: LISINOPRIL 10MG TABLET PO SCH (08:54)
[2020-11-16] MEDS: SEVELAMER CARBONATE 800 MG TABLET PO SCH ×3 (08:54→18:04)
[2020-11-16] MEDS: HYDROCODONE/ACETAMINOPHEN 5/325MG TABLET PO PRN ×2 (08:59→12:20)
[2020-11-16] MEDS ORDERED: CIPROFLOXACIN 0.3% OPHTH SOLN 2.5ML BOTHEYE SCH (09:00)
[2020-11-16] MEDS ORDERED: BROMFENAC SODIUM 0.09% OPHTH DROPS 2.5ML BOTHEYE SCH (09:00)
[2020-11-16] MEDS: AMOXICILLIN 500 MG CAPSULE PO SCH (12:19)
[2020-11-16 19:56] LABS: TOTAL IRON BINDING CAPACITY 173 ug/dL (250-450)
[2020-11-16 20:31] LABS: HEMATOCRIT 24.9 % (42.0-52.0); HEMOGLOBIN 8.6 g/dL (14.0-18.0)
[2020-11-16] MEDS ORDERED: EPOETIN ALFA-EPBX 4,000 UNIT/ML VIAL SUBCUT NR (21:00)
[2020-11-16] MEDS: DIPHENHYDRAMINE 50MG CAPSULE PO SCH (21:19)
[2020-11-16] MEDS ORDERED: NALOXONE HCL 0.4MG/ML VIAL IV PRN (23:00)
[2020-11-17] VITALS: BP 138/70
[2020-11-17 04:00] VITALS: BP 151/74
[2020-11-17 07:41] LABS: EOSINOPHILS % 2.3 % (0.0-5.0); HEMOGLOBIN. 8.9 g/dL (14.0-18.0); LYMPHOCYTES % 47.1 % (20.0-50.0); MEAN CORPUSCULAR HEMOGLOBIN 32.1 pg (28.0-32.0); MEAN CORPUSCULAR VOLUME 90.6 fL (80.0-94.0); MEAN PLATELET VOLUME 6.8 fl (7.4-10.4); MONOCYTES % 10.7 % (2.0-8.0); NEUTROPHILS % 38.9 % (40.0-76.0); PLATELET 276 x1000/uL (130-400); RED BLOOD CELL COUNT 2.76 mill/uL (4.7-6.1); RED CELL DISTRIBUTION WIDTH 14.4 % (11.6-14.6)
[2020-11-17 07:59] VITALS: BP 161/78
[2020-11-17] MEDS: FERROUS SULFATE 325MG TABLET PO SCH ×3 (08:18→17:02)
[2020-11-17] MEDS: SEVELAMER CARBONATE 800 MG TABLET PO SCH ×3 (08:18→17:04)
[2020-11-17] MEDS: FOLIC ACID/VITAMIN B COMP W-C TABLET PO SCH (08:18)
[2020-11-17] MEDS: HYDROCODONE/ACETAMINOPHEN 5/325MG TABLET PO PRN ×2 (08:19→09:19)
[2020-11-17] MEDS: LISINOPRIL 10MG TABLET PO SCH (09:00)
[2020-11-17] MEDS: AMLODIPINE 10MG TABLET PO SCH (09:00)
[2020-11-17 11:03] VITALS: BP 167/77
[2020-11-17] MEDS: AMOXICILLIN 500 MG CAPSULE PO SCH (11:30)
[2020-11-17 15:34] VITALS: BP 167/80
[2020-11-17] MEDS ORDERED: NEPVIT PO (17:50)
[2020-11-17] MEDS ORDERED: SEVE800T8 PO (17:50)
[2020-11-17] MEDS ORDERED: CLONIDINE 0.1MG TABLET PO PRN (19:45)
[2020-11-17 20:00] VITALS: BP 170/80
[2020-11-17] MEDS: DIPHENHYDRAMINE 50MG CAPSULE PO SCH (20:16)
[2020-11-18] VITALS: BP 161/73
[2020-11-18] MEDS ORDERED: HYDRALAZINE 20MG/ML VIAL IV PRN
[2020-11-18 04:00] VITALS: BP 117/59
[2020-11-18 06:17] LABS: BASOPHILS % 1.1 % (0.0-2.0); EOSINOPHILS % 2.5 % (0.0-5.0); HEMATOCRIT. 23.4 % (42.0-52.0); HEMOGLOBIN. 8.2 g/dL (14.0-18.0); LYMPHOCYTES % 38.3 % (20.0-50.0); MEAN CORPUSCULAR VOLUME 91.4 fL (80.0-94.0); MEAN PLATELET VOLUME 7.2 fl (7.4-10.4); MONOCYTES % 8.4 % (2.0-8.0); NEUTROPHILS % 49.7 % (40.0-76.0); PLATELET 271 x1000/uL (130-400); RED BLOOD CELL COUNT 2.56 mill/uL (4.7-6.1); RED CELL DISTRIBUTION WIDTH 14.4 % (11.6-14.6)
[2020-11-18 07:02] LABS: FOLIC ACID (FOLATE) SERUM 13.7 ng/mL (>5.38)
[2020-11-18 08:00] VITALS: BP_SYST 102; BP_SYST 124; BP_DIAS 51; BP_DIAS 65
[2020-11-18] MEDS: SEVELAMER CARBONATE 800 MG TABLET PO SCH ×3 (10:10→18:12)
[2020-11-18] MEDS: FOLIC ACID/VITAMIN B COMP W-C TABLET PO SCH (10:10)
[2020-11-18] MEDS: FERROUS SULFATE 325MG TABLET PO SCH ×3 (10:11→18:12)
[2020-11-18] MEDS: AMLODIPINE 10MG TABLET PO SCH (10:11)
[2020-11-18] MEDS: LISINOPRIL 10MG TABLET PO SCH (10:12)
[2020-11-18 12:00] VITALS: BP 102/65
[2020-11-18 16:00] VITALS: BP 136/75
[2020-11-18 18:39] VITALS: BP 136/75
[2020-11-18] MEDS ORDERED: EPOETIN ALFA-EPBX 4,000 UNIT/ML VIAL SUBCUT NR (21:00)
== END 2020-11-18 19:25 | disposition home or self-care (01) | DRG 463 ==
LOC: ER 22:36 → 6WST 11-13 05:32 → EDBEDREQ 11-13 05:36 → EDBEDREQSVC 11-13 05:36 → EDBEDREQTM 11-13 05:36 → ENRESERV 11-13 20:55
PROVIDERS: ADMIT Internal Medicine; ATTEND Internal Medicine
PROC: 30233N1 Transfusion of Nonautologous Red Blood Cells into Peripheral Vein, Percutaneous Approach (ICD-10-PCS; principal; 2020-11-16)
PROC: 5A1D70Z Performance of Urinary Filtration, Intermittent, Less than 6 Hours Per Day (ICD-10-PCS; 2020-11-17)
DX: N39.0 Urinary tract infection, site not specified (principal); I12.0 Hypertensive chronic kidney disease with stage 5 chronic kidney disease or end stage renal disease; E46 Unspecified protein-calorie malnutrition; E87.5 Hyperkalemia; D64.9 Anemia, unspecified; K52.9 Noninfective gastroenteritis and colitis, unspecified; N18.6 End stage renal disease; M46.44 Discitis, unspecified, thoracic region; K57.30 Diverticulosis of large intestine without perforation or abscess without bleeding; Z82.49 Family history of ischemic heart disease and other diseases of the circulatory system; Z99.2 Dependence on renal dialysis; Z68.1 Body mass index [BMI] 19.9 or less, adult; Z79.899 Other long term (current) drug therapy
CPT/HCPCS: 36415; 72146; 72148; 76700; 80048; 80053; 80061; 81003; 82270; 82607; 82728; 82746; 83540; 83550; 84100; 85014; 85018; 85025; 85044; 86705; 86709; 86803; 86850; 86900; 86920; 87077; 87340; 93005; 97162; 97535; 99285; J0360; J0885; J2185; J7040; J7050; P9016; Q0163

== ENCOUNTER 2021-04-20 09:23 | Inpatient (IN) | payer MEDICAID, OTHER ==
[~2021-04-20] VITALS: Ht 165.1 cm; Wt 44.9 kg
[~2021-04-20 09:23] MED LIST changes: +ALPR-339 PO; +AMLO10TA80 PO; -BENA10TA74 PO; -CALC0.253 PO; +DIPH1TAB24 PO; +DIPH50CA38 PO; -ERGO80009 PO; +FERR325T6 PO; -FOLI0.8T23 PO; -FURO40TA5 PO; +HYDR-4001 PO; +LISI10TA26 PO; +NEPVIT PO; -NIFE-33 PO; -NONFORMULARY BOTHEYE; +ONDA4TAB50 PO; +SEVE800T8 PO; -TRAM50TA3 MT
[2021-04-20] MEDS ORDERED: HYDRALAZINE 20MG/ML VIAL IV ONE (10:15)
[2021-04-20 10:58] LABS: BASOPHILS % 1.1 % (0.0-2.0); EOSINOPHILS % 2.9 % (0.0-5.0); HEMATOCRIT. 31.2 % (42.0-52.0); HEMOGLOBIN. 10.4 g/dL (14.0-18.0); LYMPHOCYTES % 26.6 % (20.0-50.0); MEAN CORPUSCULAR HEMOGLOBIN 31.6 pg (28.0-32.0); MEAN CORPUSCULAR VOLUME 95.1 fL (80.0-94.0); MEAN PLATELET VOLUME 8.1 fl (7.4-10.4); MONOCYTES % 7.7 % (2.0-8.0); NEUTROPHILS % 61.7 % (40.0-76.0); PLATELET 136 x1000/uL (130-400); RED BLOOD CELL COUNT 3.28 mill/uL (4.7-6.1); RED CELL DISTRIBUTION WIDTH 15.4 % (11.6-14.6)
[2021-04-20 11:04] LABS: CHLORIDE 105 mEq/L (98-107)
[2021-04-20 11:10] LABS: ETHANOL BLOOD < 10 mg/dL
[2021-04-20] MEDS ORDERED: AZITHROMYCIN 500MG/250ML 250 ML IV ONE (11:30)
[2021-04-20] MEDS ORDERED: CEFTRIAXONE 1 G PREMIX 50 ML IV ONE (11:30)
[2021-04-20] MEDS ORDERED: ONDANSETRON HCL 4MG/2ML INJ IV PRN (12:15)
[2021-04-20] MEDS ORDERED: CLONIDINE 0.1MG TABLET PO PRN (12:15)
[2021-04-20 12:43] LABS: CHLORIDE 106 mEq/L (98-107)
[2021-04-20 12:48] LABS: CLARITY URINE CLEAR (CLEAR); COLOR URINE YELLOW (YELLOW); KETONES URINE NEGATIVE (NEGATIVE); LEUKOCYTE ESTERASE URINE TRACE (NEGATIVE); NITRITE URINE NEGATIVE (NEGATIVE); OCCULT BLOOD URINE 1+ (NEGATIVE); PH URINE >=9.0 (4.5-8.0); PROTEIN URINE 4+ (NEGATIVE); SPECIFIC GRAVITY URINE 1.013 (1.005-1.030); UROBILINOGEN URINE 0.2 E.U./dL (0.2-1.0)
[2021-04-20] MEDS: NIFEDIPINE XL 60MG TAB PO SCH (12:48)
[2021-04-20 13:00] LABS: *BARBITURATES SCREEN URINE NEGATIVE (NEGATIVE); *BENZODIAZEPINES SCREEN URINE NEGATIVE (NEGATIVE); *COCAINE SCREEN URINE NEGATIVE (NEGATIVE); METHADONE URINE SCREEN NEGATIVE (NEGATIVE); OPIATES URINE SCREEN PRESUMTIVE POSITIVE (NEGATIVE)
[2021-04-20 13:01] LABS: *AMPHETAMINES SCREEN URINE NEGATIVE (NEGATIVE); CANNABINOID URINE SCREEN NEGATIVE (NEGATIVE); PHENCYCLIDINE URINE SCREEN NEGATIVE (NEGATIVE)
[2021-04-20] MEDS ORDERED: SODIUM POLYSTYRENE SULFONATE 15 G/60 ML BOT PO NR (23:00)
[2021-04-21] MEDS: LEVOTHYROXINE SODIUM 50MCG TABLET PO SCH (06:39)
[2021-04-21 07:11] LABS: BASOPHILS % 0.8 % (0.0-2.0); EOSINOPHILS % 2.8 % (0.0-5.0); HEMATOCRIT. 29.7 % (42.0-52.0); LYMPHOCYTES % 31.7 % (20.0-50.0); MEAN CORPUSCULAR HEMOGLOBIN 31.6 pg (28.0-32.0); MEAN CORPUSCULAR VOLUME 94.3 fL (80.0-94.0); MONOCYTES % 7.2 % (2.0-8.0); NEUTROPHILS % 57.5 % (40.0-76.0); PLATELET 147 x1000/uL (130-400); RED BLOOD CELL COUNT 3.15 mill/uL (4.7-6.1); RED CELL DISTRIBUTION WIDTH 15.3 % (11.6-14.6)
[2021-04-21] MEDS: NIFEDIPINE XL 60MG TAB PO SCH (10:05)
[2021-04-21 12:00] VITALS: BP 168/77
[2021-04-21 12:17] VITALS: BP 100/58
[2021-04-21] MEDS: ACETAMINOPHEN 325MG TABLET PO PRN (12:54)
[2021-04-21] MEDS: LOPERAMIDE HCL 2MG CAPSULE PO PRN (15:58)
[2021-04-21 16:00] VITALS: BP 207/107
[2021-04-21] MEDS: HYDRALAZINE HCL 100MG TABLET PO SCH (17:21)
[2021-04-21 20:00] VITALS: BP 140/75
[2021-04-21 21:53] LABS: HEMATOCRIT 30.5 % (42.0-52.0); HEMOGLOBIN 10.3 g/dL (14.0-18.0)
[2021-04-21] MEDS ORDERED: EPOETIN ALFA-EPBX 4,000 UNIT/ML VIAL SUBCUT NR (22:00)
[2021-04-22] VITALS (7 sets, daily range): BP systolic 116–206; BP diastolic 57–79
[2021-04-22] MEDS: LEVOTHYROXINE SODIUM 50MCG TABLET PO SCH (06:41)
[2021-04-22] MEDS: HYDRALAZINE HCL 100MG TABLET PO SCH ×2 (09:03→16:58)
[2021-04-22] MEDS: NIFEDIPINE XL 60MG TAB PO SCH (09:03)
[2021-04-22] MEDS: ACETAMINOPHEN 325MG TABLET PO PRN ×2 (09:08→16:58)
[2021-04-22 12:42] LABS: HEPATITIS B SURFACE ANTIGEN NEGATIVE
[2021-04-22] MEDS: LOPERAMIDE HCL 2MG CAPSULE PO PRN (17:02)
[2021-04-22] MEDS: HYDROCODONE/ACETAMINOPHEN 5/325MG TABLET PO PRN (20:26)
[2021-04-22] MEDS ORDERED: NALOXONE HCL 0.4MG/ML VIAL IV PRN (20:30)
[2021-04-23] VITALS: BP 133/72
[2021-04-23 04:00] VITALS: BP 124/73
[2021-04-23] MEDS: HYDROCODONE/ACETAMINOPHEN 5/325MG TABLET PO PRN ×2 (04:50→21:23)
[2021-04-23] MEDS: LOPERAMIDE HCL 2MG CAPSULE PO PRN (04:50)
[2021-04-23] MEDS: LEVOTHYROXINE SODIUM 50MCG TABLET PO SCH (06:14)
[2021-04-23 08:00] VITALS: BP 140/82
[2021-04-23] MEDS: HYDRALAZINE HCL 100MG TABLET PO SCH ×2 (08:45→16:12)
[2021-04-23] MEDS: NIFEDIPINE XL 60MG TAB PO SCH (08:45)
[2021-04-23 12:00] VITALS: BP 126/69
[2021-04-23 16:00] VITALS: BP 122/68
[2021-04-23] MEDS ORDERED: IRON SUCROSE COMPLEX 100 MG/5 ML ML IV SCH (18:15)
[2021-04-23 20:00] VITALS: BP 101/66
[2021-04-23] MEDS ORDERED: LABETALOL HCL VIAL 20 MG/4 ML VIAL IV PRN (23:30)
[2021-04-24] VITALS: BP 130/79
[2021-04-24] MEDS ORDERED: EPOETIN ALFA-EPBX 4,000 UNIT/ML VIAL SUBCUT NR
[2021-04-24] MEDS ORDERED: IRON SUCROSE COMPLEX 100 MG/5 ML ML IV SCH (01:30)
[2021-04-24] MEDS: ACETAMINOPHEN 325MG TABLET PO PRN (01:33)
[2021-04-24 04:00] VITALS: BP 125/70
[2021-04-24] MEDS: LEVOTHYROXINE SODIUM 50MCG TABLET PO SCH (06:35)
[2021-04-24 08:00] VITALS: BP 152/75
[2021-04-24] MEDS: NIFEDIPINE XL 60MG TAB PO SCH (09:42)
[2021-04-24] MEDS: LOPERAMIDE HCL 2MG CAPSULE PO PRN (09:42)
[2021-04-24] MEDS: HYDRALAZINE HCL 100MG TABLET PO SCH (09:42)
== END 2021-04-24 10:20 | disposition home or self-care (01) | DRG 199 ==
LOC: ER 09:23 → EDBEDREQTM 11:52 → EDBEDREQ 11:52 → MICUSO 04-21 00:43 → 8WST 04-21 08:15
PROVIDERS: ADMIT Internal Medicine; ATTEND Internal Medicine
PROC: 5A1D70Z Performance of Urinary Filtration, Intermittent, Less than 6 Hours Per Day (ICD-10-PCS; principal; 2021-04-21)
DX: I16.0 Hypertensive urgency (principal); T68.XXXA Hypothermia, initial encounter; N18.6 End stage renal disease; E44.1 Mild protein-calorie malnutrition; E11.22 Type 2 diabetes mellitus with diabetic chronic kidney disease; D64.9 Anemia, unspecified; D72.819 Decreased white blood cell count, unspecified; E03.9 Hypothyroidism, unspecified; E87.5 Hyperkalemia; I12.0 Hypertensive chronic kidney disease with stage 5 chronic kidney disease or end stage renal disease; Z20.822 Contact with and (suspected) exposure to COVID-19; E11.65 Type 2 diabetes mellitus with hyperglycemia; Z99.2 Dependence on renal dialysis; Z98.1 Arthrodesis status; Z79.899 Other long term (current) drug therapy; Z68.1 Body mass index [BMI] 19.9 or less, adult
CPT/HCPCS: 36415; 71045; 80048; 80053; 80305; 80320; 81003; 82962; 83605; 83880; 84145; 84443; 84484; 85014; 85018; 85025; 86705; 86709; 86803; 87015; 87045; 87340; 87426; 87427; 87449; 93005; 99291; C1893; J0360; J0456; J0696; J0885; G0480

== ENCOUNTER 2022-04-27 15:35 | Emergency (ER) | payer MEDICAID ==
[~2022-04-27] VITALS: Ht 144.8 cm; Wt 49.0 kg
[2022-04-27 15:49] VITALS: BP 186/73
== END 2022-04-27 20:25 | disposition left against medical advice (07) ==
LOC: ER 16:04
DX: Z53.21 Procedure and treatment not carried out due to patient leaving prior to being seen by health care provider (principal)

== ENCOUNTER → 2022-04-27 | Outpatient (CLI) | payer MEDICAID | END | disposition home or self-care (01) | LOC: RAD 14:50 | PROVIDERS: ATTEND Internal Medicine Nephrology | DX: I12.0 Hypertensive chronic kidney disease with stage 5 chronic kidney disease or end stage renal disease (principal); E11.22 Type 2 diabetes mellitus with diabetic chronic kidney disease; N18.6 End stage renal disease | CPT/HCPCS: 71045 ==

== ENCOUNTER 2022-05-16 15:05 | Emergency (ER) | payer MEDICAID, OTHER ==
[~2022-05-16] VITALS: Ht 162.6 cm; Wt 50.0 kg
[2022-05-16 18:48] VITALS: BP 136/79
[2022-05-16 19:24] LABS: BASOPHILS % 0.7 % (0.0-2.0); EOSINOPHILS % 4.1 % (0.0-5.0); HEMATOCRIT. 23.6 % (42.0-52.0); HEMOGLOBIN. 7.9 g/dL (14.0-18.0); LYMPHOCYTES % 34.1 % (20.0-50.0); MEAN CORPUSCULAR HEMOGLOBIN 31.6 pg (28.0-32.0); MEAN CORPUSCULAR VOLUME 94.6 fL (80.0-94.0); MONOCYTES % 7.5 % (2.0-8.0); NEUTROPHILS % 53.6 % (40.0-76.0); PLATELET 183 x1000/uL (130-400); RED CELL DISTRIBUTION WIDTH 13.6 % (11.6-14.6)
== END 2022-05-16 19:21 | disposition home or self-care (01) ==
LOC: ER 15:16
DX: T82.838A Hemorrhage due to vascular prosthetic devices, implants and grafts, initial encounter (principal); I10 Essential (primary) hypertension; E11.9 Type 2 diabetes mellitus without complications; Z79.899 Other long term (current) drug therapy
CPT/HCPCS: 36415; 85025; 99283

== ENCOUNTER 2022-05-25 16:12 | Emergency (ER) | payer MEDICAID ==
[~2022-05-25] VITALS: Ht 147.3 cm; Wt 52.0 kg
[2022-05-25 16:39] VITALS: BP 146/80
== END 2022-05-25 18:55 | disposition left against medical advice (07) ==
LOC: ER 16:36
DX: Z53.21 Procedure and treatment not carried out due to patient leaving prior to being seen by health care provider (principal)

== ENCOUNTER 2022-05-26 15:23 | Emergency (ER) | payer MEDICAID ==
[~2022-05-26] VITALS: Ht 144.8 cm; Wt 50.0 kg
[2022-05-26 15:38] VITALS: BP 108/57
== END 2022-05-26 22:15 | disposition left against medical advice (07) ==
LOC: ER 19:46
DX: Z53.21 Procedure and treatment not carried out due to patient leaving prior to being seen by health care provider (principal)

== ENCOUNTER 2023-01-09 05:47 | Inpatient (IN) | payer MEDICAID, OTHER ==
[~2023-01-09] VITALS: Ht 160 cm; Wt 61.2 kg
[2023-01-09] VITALS (14 sets, daily range): BP systolic 131–215; BP diastolic 56–109; PULSE 75–98; RESP 15–20; TEMP 96.1–98.3
[2023-01-09] MEDS ORDERED: NITROGLYCERIN OINT 1GM/INCH UDPKT TD ONE (06:15)
[2023-01-09] MEDS ORDERED: AMLODIPINE 10MG TABLET PO ONE (06:15)
[2023-01-09] MEDS ORDERED: LISINOPRIL 10MG TABLET PO ONE (06:15)
[2023-01-09] MEDS ORDERED: NITROGLYCERIN SPRAY/4.9GM CAN TL ONE (06:15)
[2023-01-09 06:32] LABS: BASOPHILS % 0.8 % (0.0-2.0); EOSINOPHILS % 1.6 % (0.0-5.0); HEMATOCRIT. 39.6 % (42.0-52.0); HEMOGLOBIN. 12.7 g/dL (14.0-18.0); LYMPHOCYTES % 20.4 % (20.0-50.0); MEAN CORPUSCULAR HEMOGLOBIN 29.7 pg (28.0-32.0); MEAN CORPUSCULAR VOLUME 92.9 fL (80.0-94.0); MEAN PLATELET VOLUME 7.9 fl (7.4-10.4); MONOCYTES % 6.8 % (2.0-8.0); NEUTROPHILS % 70.4 % (40.0-76.0); PLATELET 130 x1000/uL (130-400); RED BLOOD CELL COUNT 4.27 mill/uL (4.7-6.1); RED CELL DISTRIBUTION WIDTH 17.9 % (11.6-14.6); WHITE BLOOD COUNT 8.8 x1000/uL (4.5-11.0)
[2023-01-09 06:42] LABS: CHLORIDE 108 mEq/L (98-107); INDEX HEMOLYSI 1 (1-3); INDEX ICTERIC 1 (1-4); INDEX LIPEMIC 1 (1-3); SODIUM 139 mEq/L (136-145)
[2023-01-09 06:51] LABS: ALANINE AMINOTRANSFERASE 16 IU/L (13-61); ALBUMIN 3.7 g/dL (3.4-5.0); ASPARTATE AMINOTRANSFERASE 16 IU/L (15-37); BILIRUBIN TOTAL 0.4 mg/dL (0.1-1.0); CALCIUM 7.7 mg/dL (8.5-10.1); CARBON DIOXIDE 25 mEq/L (21-32); GLUCOSE 82 mg/dL (70-105); PROTEIN TOTAL 7.6 g/dL (6.0-8.3); TROPONIN I HIGH SENSITIVITY 42 ng/L (<78); UREA NITROGEN BLOOD 51 mg/dL (7-21)
[2023-01-09 07:01] LABS: CREATININE 7.7 mg/dL (0.6-1.3)
[2023-01-09] MEDS ORDERED: INSULIN REGULAR (HUMULIN R) 300UNITS/3ML VIAL IV ONE (07:15)
[2023-01-09] MEDS ORDERED: SODIUM BICARBONATE 8.4% 1 MEQ/ML 50ML SYR IV ONE (07:15)
[2023-01-09] MEDS ORDERED: CALCIUM GLUCONATE 1GM PREMIX 50 ML IV ONE (07:15)
[2023-01-09] MEDS ORDERED: DEXTROSE 50% WATER 50ML SYRINGE IV ONE (07:15)
[2023-01-09] MEDS ORDERED: INSULIN REGULAR (HUMULIN R) 300UNITS/3ML VIAL IV SCH (09:15)
[2023-01-09] MEDS ORDERED: ONDANSETRON HCL 4MG/2ML INJ IV PRN (12:45)
[2023-01-09] MEDS ORDERED: ACETAMINOPHEN 325MG TABLET PO PRN (12:45)
[2023-01-09] MEDS: NIFEDIPINE XL 60MG TAB PO SCH ×2 (13:00→22:58)
[2023-01-09] MEDS ORDERED: DEXTROSE 10% WATER 500 ML IV ONE ×2 (13:15→15:30)
[2023-01-09] MEDS ORDERED: DEXTROSE 50% WATER 50ML SYRINGE IV PRN ×2 (15:00)
[2023-01-09] MEDS ORDERED: *PATIENT'S OWN MEDICATION STORAGE XX SCH (17:00)
[2023-01-09] MEDS: HYDRALAZINE HCL 50MG TABLET PO SCH (22:56)
[2023-01-10] VITALS (16 sets, daily range): BP systolic 98–159; BP diastolic 42–90; PULSE 74–84; RESP 16–21; TEMP 98–98.6
[2023-01-10 06:50] LABS: CALCIUM 6.5 mg/dL (8.5-10.1)
[2023-01-10 06:56] LABS: CREATININE 4.9 mg/dL (0.6-1.3)
[2023-01-10 07:12] LABS: POTASSIUM 6.2 mEq/L (3.5-5.1)
[2023-01-10] MEDS: NIFEDIPINE XL 60MG TAB PO SCH ×2 (09:09→17:00)
[2023-01-10] MEDS: HYDRALAZINE HCL 50MG TABLET PO SCH ×2 (09:10→20:49)
[2023-01-10] MEDS ORDERED: LIDOCAINE HCL 1% 10 MG/ML 10ML VIAL ONE (10:26)
[2023-01-10] MEDS ORDERED: SODIUM POLYSTYRENE SULFONATE 15 G/60 ML BOT PO NR (13:15)
[2023-01-11] VITALS (20 sets, daily range): BP systolic 92–176; BP diastolic 47–124; PULSE 79–103; RESP 13–22; TEMP 97.8–99.2; O2SAT 96
[2023-01-11] MEDS: HYDRALAZINE HCL 50MG TABLET PO SCH (13:08)
[2023-01-11] MEDS: NIFEDIPINE XL 60MG TAB PO SCH ×2 (13:08→17:00)
[2023-01-11] MEDS ORDERED: ONDANSETRON 4MG ODT PO PRN (16:41)
[2023-01-11 17:34] LABS: INR 1.1; PROTHROMBIN TIME 11.3 sec (9.6-11.0)
[2023-01-17] MEDS ORDERED: HYDR-4135 PO (12:48)
== END 2023-01-11 22:23 | disposition home or self-care (01) | DRG 420 ==
LOC: ER 05:47 → 8WST 07:54 → EDBEDREQ 08:01 → 5EST 15:23
PROVIDERS: ADMIT Internal Medicine; ATTEND Internal Medicine
PROC: 5A1D70Z Performance of Urinary Filtration, Intermittent, Less than 6 Hours Per Day (ICD-10-PCS; principal; 2023-01-09)
PROC: 02HV33Z Insertion of Infusion Device into Superior Vena Cava, Percutaneous Approach (ICD-10-PCS; 2023-01-10)
PROC: B548ZZA Ultrasonography of Superior Vena Cava, Guidance (ICD-10-PCS; 2023-01-10)
PROC: 5A1D70Z Performance of Urinary Filtration, Intermittent, Less than 6 Hours Per Day (ICD-10-PCS; 2023-01-11)
DX: E11.649 Type 2 diabetes mellitus with hypoglycemia without coma (principal); J96.01 Acute respiratory failure with hypoxia; G93.41 Metabolic encephalopathy; I50.21 Acute systolic (congestive) heart failure; E83.51 Hypocalcemia; N18.6 End stage renal disease; E11.22 Type 2 diabetes mellitus with diabetic chronic kidney disease; D64.9 Anemia, unspecified; I13.2 Hypertensive heart and chronic kidney disease with heart failure and with stage 5 chronic kidney disease, or end stage renal disease; E87.5 Hyperkalemia; E78.00 Pure hypercholesterolemia, unspecified; T38.3X5A Adverse effect of insulin and oral hypoglycemic [antidiabetic] drugs, initial encounter; Z99.2 Dependence on renal dialysis; Z79.4 Long term (current) use of insulin; Z82.49 Family history of ischemic heart disease and other diseases of the circulatory system; Y92.89 Other specified places as the place of occurrence of the external cause; E87.70 Fluid overload, unspecified
CPT/HCPCS: 36415; 36573; 71045; 80048; 80053; 82962; 84484; 85025; 87426; 87804; 90935; 93005; 93306; 99285; C1725; C9803; J0610; J1815; J3490; Q0162

== ENCOUNTER 2025-03-24 08:05 | Emergency (ER) | payer MEDICAID ==
[~2025-03-24] VITALS: Ht 162.6 cm; Wt 49.0 kg
[~2025-03-24 08:05] MED LIST changes: +DIPH-1091 PO; -DIPH1TAB24 PO; +FOLI0.8T53 PO; +HYDR50TA39 PO; -LISI10TA26 PO; -NEPVIT PO
[2025-03-24 08:07] VITALS: O2SAT 98
[2025-03-24] MEDS: LABETALOL 5MG/ML 4ML INJ IV ONE (08:51)
[2025-03-24 08:55] LABS: BASOPHILS % 0.5 % (0.0-2.0); EOSINOPHILS % 2.6 % (0.0-5.0); HEMATOCRIT. 32.1 % (42.0-52.0); HEMOGLOBIN. 10.9 g/dL (14.0-18.0); LYMPHOCYTES % 25.6 % (20.0-50.0); MEAN PLATELET VOLUME 7.6 fl (7.4-10.4); MONOCYTES % 6.8 % (2.0-8.0); NEUTROPHILS % 64.5 % (40.0-76.0); PLATELET 150 x1000/uL (130-400); RED BLOOD CELL COUNT 3.43 mill/uL (4.7-6.1); RED CELL DISTRIBUTION WIDTH 13.4 % (11.6-14.6)
[2025-03-24 09:41] LABS: CREATININE 3.0 mg/dL (0.6-1.3); UREA NITROGEN BLOOD 9.0 mg/dL (9-23)
[2025-03-24] MEDS: ENALAPRIL 2.5MG/2ML VIAL 2ML IV ONE (09:58)
[2025-03-24 13:45] VITALS: BP 254/96; PULSE 61; RESP 15; TEMP 36.9; O2SAT 98
== END 2025-03-24 13:47 | disposition home or self-care (01) ==
LOC: ER 08:05
DX: I10 Essential (primary) hypertension (principal); E11.9 Type 2 diabetes mellitus without complications; E78.00 Pure hypercholesterolemia, unspecified; Z79.899 Other long term (current) drug therapy; Z99.2 Dependence on renal dialysis
CPT/HCPCS: 99285; 96374; 96375; 80048; 85025; 36415; 93005; J3490 ×2